=== PATIENT | male | born 1960 | race Caucasian/White ===

== ENCOUNTER 2022-10-08 13:27 | Outpatient (OUT) | payer BC, SELFPAY ==
[2022-10-08 14:53] LABS: Prostate Specific Antigen Dx 0.15 ng/mL (<=4.00)
== END 2022-10-08 13:28 | disposition home or self-care (01) ==
LOC: LAB 13:33
PROVIDERS: PCP Family Medicine
DX: C61 Malignant neoplasm of prostate (principal)
CPT/HCPCS: 36415; 84153

== ENCOUNTER 2022-11-29 09:32 | Outpatient (OUT) | payer BC, SELFPAY ==
--- NOTE | 2022-11-29 09:40 | XR_ITS ---
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 Atherosclerotic calcifications. Left foot is otherwise unremarkable. Electronically authenticated by: GUDELIA GASPAR Date: 11/29/2022 18:05
== END 2022-11-29 09:33 | disposition home or self-care (01) ==
LOC: RAD 09:33
PROVIDERS: PCP Family Medicine; Visit Provider Physician Assistant
DX: M79.672 Pain in left foot (principal)
CPT/HCPCS: 73620

== ENCOUNTER 2023-01-29 09:23 | Outpatient (OUT) | payer BC, SELFPAY ==
[2023-01-29 09:57] LABS: Basophils Percent Auto 0.1 % (0.2-2.0); Eosinophils Absolute Auto 0.2 10^3/uL (0.0-0.7); Eosinophils Percent Auto 3.2 % (0.9-7.0); Hematocrit 40.8 % (42.0-54.0); Hemoglobin 13.9 g/dL (14.0-18.0); Immature Granulocytes Abs Auto 0.01 10^3/uL (0.00-0.03); Immature Granulocytes Pct Auto 0.1 % (0.0-0.5); Lymphocytes Absolute Auto 0.9 10^3/uL (1.2-3.8); Lymphocytes Percent Auto 12.4 % (20.5-60.0); Mean Corpuscular HGB Conc 34.1 g/dL (29.9-35.2); Mean Corpuscular Hemoglobin 33.2 pg (25.9-34.0); Mean Corpuscular Volume 97.4 fL (80.0-94.0); Mean Platelet Volume 10.2 fL (9.5-13.5); Monocytes Absolute Auto 0.5 10^3/uL (0.3-0.8); Monocytes Percent Auto 6.6 % (1.7-12.0); Neutrophils Absolute Auto 5.8 10^3/uL (1.4-6.5); Neutrophils Percent Auto 77.6 % (43.0-75.0); Platelet Count 194 10^3/uL (150-450); Red Blood Count 4.19 10^6/uL (4.70-6.10); White Blood Count 7.4 10^3/uL (4.0-11.0)
[2023-01-29 11:39] LABS: Estimated Average Glucose 111 mg/dL; Glycohemoglobin A1C 5.5 % (4.5-6.2)
[2023-01-29 12:54] LABS: Alanine Aminotransferase 35 U/L (16-63); Albumin Level 3.8 g/dL (3.4-5.0); Alkaline Phosphatase 55 U/L (46-116); Anion Gap 10.9; Aspartate Amino Transferase 18 U/L (15-37); BUN Creatinine Ratio 16.5; Bilirubin Total 0.7 mg/dL (0.2-1.0); Calcium 9.1 mg/dL (8.5-10.1); Carbon Dioxide 28.3 mmol/L (21.0-32.0); Chloride 99 mmol/L (98-107); Chol HDL Ratio 2.8; Cholesterol 224 mg/dL (<=200); Estimated GFR (African America >60 (>=60); Estimated GFR (Non-African Ame >60 (>=60); Free T3 2.71 pg/mL (2.18-3.98); Globulin 3.7 g/dL; Glucose 111 mg/dL (74-106); HDL Cholesterol 79 mg/dL (40-60); Potassium 4.2 mmol/L (3.5-5.1); Sodium 134 mmol/L (136-145); Thyroid Stimulating Hormone 1.481 uIU/mL (0.358-3.740); Total Protein 7.5 g/dL (6.4-8.2); Triglycerides 56 mg/dL (<=150); VLDL CHOLESTEROL 11.2 mg/dL
== END 2023-01-29 09:24 | disposition home or self-care (01) ==
LOC: LAB 09:24
PROVIDERS: PCP Family Medicine; Visit Provider Family Medicine
DX: Z00.00 Encounter for general adult medical examination without abnormal findings (principal); C61 Malignant neoplasm of prostate; E78.5 Hyperlipidemia, unspecified; R73.09 Other abnormal glucose
CPT/HCPCS: 36415; 80053; 80061; 83036; 84153; 84436; 84443; 84481; 85025

== ENCOUNTER 2023-01-29 09:25 | Outpatient (OUT) | payer BC, SELFPAY ==
[2023-01-29 11:12] LABS: Prostate Specific Antigen Dx 0.13 ng/mL (<=4.00)
== END 2023-01-29 09:26 | disposition home or self-care (01) ==
LOC: LAB 09:26
PROVIDERS: PCP Family Medicine; Visit Provider Radiology Radiation Oncology
DX: C61 Malignant neoplasm of prostate (principal)
CPT/HCPCS: 36415; 84153

== ENCOUNTER 2023-08-08 09:44 | Outpatient (OUT) | payer BC, SELFPAY ==
--- OUTSIDE RECORDS SUMMARY | 2023-08-08 09:52 | XMS_ITS | CCD ---
Author Organization [facility] Care Team Providers Care Quality Consultant Name Role Phone BARBARA PORTER Primary Care Physician [phone] Barbara Porter MD Primary Care Provider Rohan Parmar Jr. Unavailable Barbara Porter MD Primary Care Provider Rohan Parmar Jr. Unavailable Barbara Porter MD Primary Care Provider [phone] Rohan Parmar Jr. Unavailable DR ROHAN PARMAR JR Admitting Jin PARMAR JR, DR ROHAN Rivera Attending Unavailtoñito PARMAR JR, DR ROHAN Rivera Consulting Unavailtoñito PORTER, DR BARBARA Sheets Primary Care Unavailable GHULAM GILL, DR ROHAN Rivera Consulting Unavailtoñito PARMAR JR, DR ROHAN Rivera Admitting Unavailtoñito PARMAR JR, DR ROHAN Rivera Attending Unavailtoñito PORTER, DR BARBARA Sheets Primary Care Unavailable GHULAM GILL, DR ROHAN Rivera Admitting Unavailtoñito PARMAR JR, DR ROHAN Rivera Attending Unavailtoñito PORTER, DR BARBARA Sheets Primary Care Unavailable [place], DR CATERINA Seals Consulting Unavailable AGUEDA, DR MACKENZIE Francis Consulting Unavailable GHULAM GILL, DR ROHAN Rivera Consulting Unavailtoñito sheets AGUBOSISANTINO Gomez Consulting Unavailable PERLITA HOPSON Consulting Unavailable ANGELICA ARGUETA Consulting Unavailable AGUEDA, DR MACKENZIE Francis Admitting Unavailable AGUEDA, DR MACKENZIE Francis Attending Unavailable GERMAN, DR BARBARA Sheets Primary Care Unavailable AGUEDA, DR MACKENZIE Francis Consulting Unavailable AGUEDA, DR MACKENZIE Francis Admitting Unavailable AGUEDA, DR MACKENZIE Francis Attending Unavailable GERMAN, DR BARBARA Sheets Consulting Unavailable GERMAN, DR BARBARA Sheets Primary Care Unavailable AGUEDA, DR MACKENZIE Francis Consulting Unavailable GERMAN, DR BARBARA Sheets Primary Care Unavailable SREEKANTH, DR LING Admitting Unavailable SREEKANTH, DR LING Attending Unavailable GUTIERREZ MILLS Consulting Unavailable CATERINA CHAVEZ Consulting Unavailable GERMAN, DR BARBARA Sheets Attending Unavailable GERMAN, DR BARBARA Sheets Consulting Unavailable GERMAN, DR BARBARA Sheets Primary Care Unavailable GERMAN, DR BARBARA Sheets Admitting Unavailable GERMAN, DR BARBARA Sheets Primary Care Unavailable GERMAN, DR BARBARA Sheets Attending Unavailable GERMAN, DR BARBARA Sheets Consulting Unavailable GERMAN, DR BARBARA Sheets Admitting Unavailable Steven Ayers Primary Care Physician Tomasz ESCOBAR Attending Unavailable Tomasz ESCOBAR Attending Unavailable Tomasz ESCOBAR Attending Unavailable Barbara Porter MD Primary Care Provider Marie ROMEO Referring Unavailable Marie ROMEO Attending Unavailable BARBARA PORTER Primary Care Unavailable Marie ROMEO Referring Unavailable Marie ROMEO Attending Unavailable BARBARA PORTER Primary Care Unavailable Marie ROMEO Referring Unavailable PRADIP ULRICH Attending Unavailable BARBARA PORTER Primary Care Unavailable Marie ROMEO Attending Unavailable BARBARA PORTER Primary Care Unavailable Marie ROMEO Referring Unavailable Allergies Allergy Classification Reported Allergen(s) Allergy Type Date of Onset Reaction(s) Facility (8 sources) Penicillin; Translations: [penicillin] Drug Allergy father gets really sick, in the [facility] Medications Current Medications Medication Drug Class(es) Dates Sig (Normalized) Sig (Original) 24 hr alfuzosin hydrochloride 10 mg extended release oral tablet (5 sources) alpha-Adrenergic Susana Start: 03-06-2022 take 1 tablet by mouth every other day alfuzosin 10 mg ER Tab 10 mg = 1 tab(s), Oral, Every other day, # 15 tab(s), Refills(s) 0, Pharmacy: [facility]/pharmacy #[id number], 182, cm, 04/14/23 12:26:00 EST, Height/Length Dosing, 108, kg, 04/14/23 12:26:00 EST, Weight Dosing Start Date: 04/14/23 Status: Ordered Start: 03-06-2022 take 1 tablet by sina th once daily, then take 1 tablet by mouth every twenty-four hours alfuzosin SR (UROXATRAL) 10 mg 24 hr tablet Take 10 mg by mouth once daily. 0 03/06/2022 Active Start: 02-11-2022 take 1 tablet by mouth once da alecia alfuzosin 10 mg ER Tab 10 mg = 1 tab(s), Oral, Daily, # 30 tab(s), Refills(s) 6, Pharmacy: [facility]/pharmacy #[id number], 182, cm, 02/11/22 13:09:00 EST, Height/Length Dosing, 112.6, kg, 02/11/22 13:09:00 EST, Weight Dosing Start Date: 02/11/22 Status: Ordered Comment on above: Take 10 mg by mouth once daily. Take 10 mg by mouth every other day. ciprofloxacin 500 mg oral tablet (6 sources) Quinolone Antimicrobial Start: 06-05-19 End: 06-11-19 take 1 tablet by mouth every twelve hours ciprofloxacin 500 mg Tab 500 mg = 1 tab(s), Oral, q12hr, Refills(s) 0, Infection or prophylaxis for antibiotics Start Date: 06/04/21 Status: Ordered phenazopyridine hydrochloride 100 mg oral tablet (1 source) Start: 09-26-19 Pyridium 100 mg Tab 100 mg = 1 tab(s), Oral, BID, take daily rather than twice a day, # 60 tab(s), Refills(s) 1, [id number], cm, 09/25/21 9:56:00 EDT, Height/Length Dosing, 112.6, kg, 09/25/21 9:56:00 EDT, Weight Dosing Start Date: 09/25/21 Status: Ordered shake vitamins (5 sources) Start: 06-05-19 shake vitamins shake vitamins, Oral, Daily, fiber store with vitamins liquid Start Date: 06/04/21 Status: Ordered Vitamin D3 2000 intl units (6 sources) Start: 06-05-19 take 1 tablet by mouth once daily Vitamin D3 2000 intl units 1 tab, Oral, Daily, Prophylaxis Start Date: 06/04/21 Status: Ordered Completed/Discontinued Medications Medication Drug Class(es) Dates Sig (Normalized) Sig (Original) bisoprolol fumarate 2.5 mg / hydroCHLOROthiazide 6.25 mg oral tablet (16 sources) Thiazide Diuretic, beta-Adrenergic Susana Start: 12-26-2022 bisoprolol-hydro chlorothiazide 2.5 mg-6.25 mg Tab See Instructions, 90 tab(s), Refill(s) 1, TAKE 1 TABLET BY MOUTH EVERY DAY, [id number], 182, cm, 08/12/22 10:27:00 EDT, Height/Length Dosing, 112, kg, 08/12/22 10:27:00 EDT, Weight Dosing Start Date: 12/26/22 Status: Ordered Start: 07-10-2021 bisoprolol-hyd rochlorothiazide 2.5 mg-6.25 mg Tab Refill(s) 0 Start Date: 07/10/21 Status: Ordered Start: 07-04-2021 take 1 tablet by sina th once daily bisoprolol-hydroCHLOROthiazide (ZIAC) 2.5-6.25 mg per tablet Take 1 tablet by mouth once daily. 0 07/04/2021 Active Comment on above: Take 1 tablet by sina th once daily. ketorolac tromethamine 10 mg oral tablet (4 sources) Nonsteroidal Anti-inflammatory Drug, Cyclooxygenase Inhibitor Start: 08-29-19 End: 04-19-19 take 1 tablet by mouth every six hours as needed keTORolac (TORADOL) 10 mg tablet Take 10 mg by mouth every 6 hours as needed. 0 08/28/2021 04/19/2022 Discontinued (Discontinued by Patient) Comment on above: Take 10 mg by mouth every 6 hours as needed. tadalafil 20 mg oral tablet (5 sources) Phosphodiesterase 5 Inhibitor Start: 02-12-20 take 1 tablet by mouth once daily Tadalafil (CIALIS) 20 mg tab(s) Take 20 mg by mouth once daily. 0 04/01/2022 Active Comment on above: Take 20 mg by mouth once daily. Problems Active Problems Problem Classification Problem Date Documented Date Episodic/Chronic Cancer of prostate (20 sources) Malignant neoplasm of prostate; Translations: [Malignant tumor of prostate] Onset: 06-26-2021 Chronic Disorders of lipid metabolism (6 sources) Hyperlipidemia 06-04-2021 Chronic Essential hypertension (7 sources) Hypertensive disorder; Translations: [Essential (primary) hypertension] Onset: 09-06-2021 04-24-2021 Chronic Genitourinary symptoms and ill-defined conditions (4 sources) Nocturia; Translations: [Nocturia] Onset: 09-06-2021 Episodic Hyperplasia of prostate (11 sources) Benign prostatic hypertrophy with outflow obstruction; Translations: [Benign prostatic hyperplasia with lower urinary tract symptoms] Onset: 06-26-2021 04-24-2021 Chronic Other diseases of kidney and ureters (3 sources) Urinary tract obstruction; Translations: [Other obstructive and reflux uropathy] Onset: 06-07-2021 Episodic Other male genital disorders (2 sources) Male erectile dysfunction, unspecified; Translations: [Erectile dysfunction] Onset: 02-11-2022 Chronic Other male genital disorders (1 source) Erectile dysfunction following radiation therapy; Translations: [Erectile dysfunction due to and following radiation therapy] Onset: 04-14-2023 Chronic Other male genital disorders (1 source) Erectile dysfunction following prostate brachytherapy 08-12-2022 Chronic Residual codes; unclassified (4 sources) Obstructive sleep apnea (adult) (pediatric); Translations: [OBSTRUCTIVE SLEEP APNEA] Onset: 02-12-2022 Chronic Unclassified (1 source) CONTACT W/AND (SUSP) EXPOS COVID-19; Translations: [CONTACT W/AND (SUSP) EXPOS COVID-19] Onset: 08-28-2021 Past or Other Problems Problem Classification Problem Date Documented Da te Episodic/Chronic E Codes: Cut/pierceb (1 source) Nail entering through skin, initial encounter; Translations: [NAIL ENTERING THROUGH SKIN INITIAL] Onset: 12-19-2021 Episodic Immunizations and screening for infectious disease (1 source) Encounter for immunization; Translations: [ENCOUNTER FOR IMMUNIZATION] Onset: 12-19-2021 Episodic Open wounds of extremities (4 sources) Laceration without foreign body of right thumb without damage to nail, initial encounter; Translations: [LAC NO FB RT THUMB NO DMG NAIL INIT] Onset: 12-17-2021 Episodic Other screening for suspected conditions (not mental disorders or infectious disease) (6 sources) Raised prostate specific antigen; Translations: [Elevated prostate specific antigen [PSA]] Onset: 09-06-2021 04-24-2021 Episodic Results Test Name Value Interpretation Reference Range Facil shanicekelly MCKAYLAon 04-16-2023 CNOV Office Visit (RADTSA ) BRAXTON STODDARD ([id number]) 1960 M Date Time Provider Department 04/16/23 10:15 AM Marie ROMEO During your visit today, we recorded the following information about you: Temperature Pulse Respiration Blood pressure 97.5 degrees 52/minute 18/minute 132/86 Weight 111.7 kg Marie Romeo MD 04/16/2023 10:28 AM Signed Radiation Oncology - Follow Up Note PATIENT NAME: Braxton Stoddard PATIENT DIAGNOSIS: Prostate adenocarcinoma, initial PSA 4.6, biopsy Brady score 3 + 3 = 6 (grade group 1), clinical stage T1c, N0, M0, stage I [cT1a-c/T2a, N0, M0, PSA <10, GG 1] (AJCC 8th ed.), s/p TRUS Random biopsy. RADIATION SUMMARY:, Prostate brachytherapy 08/20/2021 145 Gy using I-125 sources. 76 sources, 29.64 mCi 19 needles INTERVAL HISTORY: Doing well. Bladder function continues to improve. 10/09/21:Urinary function improving still with frequency and urgency. Denies hematuria. No fever. No perirectal or perineal pain. PSA HISTORY: PSA. (no units) Date Value 01/29/2023 0.13 10/08/2022 0.15 04/16/2022 0.26 10/05/2021: 3.8 ALLERGIES No Known Allergies alfuzosin SR (UROXATRAL) 10 mg 24 hr tablet Take 10 mg by mouth every other day. bisoprolol-hydroCHLORO thiazide (ZIAC) 2.5-6.25 mg per tablet Take 1 tablet by mouth once daily. Tadalafil (CIALIS) 20 mg tab(s) Take 20 mg by mouth once daily. REVIEW OF SYSTEMS: D/N = 4/1-2 Hematuria: none Dysuria: none Incontinence: none Urgency: min Catheter use: none Medications to aid urination: no - Total AUA Score: 7 Bowel movement frequency: 1/day Bowel movement quality: normal Blood per rectum: none PHYSICAL EXAM: BP 132/86 Pulse (!) 52 Temp 36.4 ?C (97.5 ?F) Resp 18 Wt 111.7 kg (246 lb 4.1 oz) SpO2 99% BMI (P) 34.35 kg/m? KPS: 100 General Appearance: Alert and oriented. No acute distress. No neck supraclavicular or axillary lymphadenopathy Rectal exam is deferred. ASSESSMENT/PLAN: Prostate adenocarcinoma, initial PSA 4.6, biopsy [place] score 3 + 3 = 6 (grade group 1), clinical stage T1c, N0, M0, stage I [cT1a-c/T2a, N0, M0, PSA <10, GG 1] (AJCC 8th ed.), s/p TRUS Random biopsy. Patient overall doing well. PSA continues to decline. No significant posttreatment related problems. Patient has continued close follow-up with urology including surveillance of PSA. I will see patient back in 6 months and if he continues to do well on an as-needed basis. Signed by: Marie Romeo MD cc: Barbara Porter [address] [place], [place] [id number] Janelle Ch LPN 04/16/2023 10:28 AM Signed AUA= 7 Referring Provider: Marie ROMEO [[id number]] Allergies As of Date: 04/16/2023 (No Known Allergies) Date Reviewed: 04/16/2023 Reviewed by: Janelle Ch LPN - Fully Assessed Reason for Visit: Prostate Cancer [590] Primary Visit Diagnosis:Malignant neoplasm of prostate (HCC) [C61] Order(s):PSA (OUTSIDE) [4723215] Order #: [id number] PSA/PROSTSPECAG DIAG [SQPSA] Order #: [id number] FUTURE Prescriptions as of 04/16/2023 - alfuzosin SR (UROXATRAL) 10 mg 24 hr tablet Take 10 mg by mouth every other day. - Tadalafil (CIALIS) 20 mg tab(s) Take 20 mg by mouth once daily. - bisoprolol-hydroCHLORO thiazide (ZIAC) 2.5-6.25 mg per tablet Take 1 tablet by mouth once daily. Problem List As Of Date 04/16/2023 Noted Resolved Prostate cancer (HCC) [C61] 04/19/2022 Visit Notes: >> Janelle Ch LPN Wed Apr 16, 2023 10:14 AM Status: Signed AUA= 7 Encounter Status:Closed by Marie ROMEO on 04/16/23 Normal [facility] Ambulatory Visit Summaryon 0 04-14-2023 Ambulatory Visit Summary BRAXTON STODDARD :1960 Visit Date:04/14/2023 Ambulatory Visit Instructions Your Diagnosis Prostate cancer BPH with urinary obstruction Erectile dysfunction after prostate brachytherapy Your Care Team Attending Physician - SONNY CODY, Tomasz Quigley Primary Care Physician - Steven Ayers MD This Is Your Medications List alfuzosin (alfuzosin 10 mg ER Tab) Contact prescribing physician if questions or concerns bisoprolol-hydrochloro thiazide (bisoprolol-hydrochlor othiazide 2.5 mg-6.25 mg Tab) cholecalciferol (Vitamin D3 2000 intl units) tadalafil (Cialis 20 mg Tab) Procedures Performed Brachytherapy (08/28/2021), Biopsy of prostate (06/07/2021), Dilation of esophagus (2015), Appendectomy, Colonoscopy. Discharge Vitals Height 182 cm Height 72 in Weight 108 kg Weight 237.6 lb BMI 32.6 What to do next You Need to Schedule the Following Appointments Follow Up with SONNY CODY, Tomasz Quigley, YUE When: Comments: 1 yr w/ PSA Where: [facility] [address] , [place] [address] [phone] Medications What How Much When Instructions Unchanged alfuzosin (alfuzosin 10 mg ER Tab) 1 Tablets By Mouth Every day Unchanged bisoprolol-hydrochloro thiazide (bisoprolol-hydrochlor othiazide 2.5 mg-6.25 mg Tab) See instructions TAKE 1 TABLET BY MOUTH EVERY DAY Contact prescribing physician if questions or concerns Unchanged cholecalciferol (Vitamin D3 2000 intl units) 1 tab By Mouth Every day Contact prescribing physician if questions or concerns Unchanged tadalafil (Cialis 20 mg Tab) 1 Tablets By Mouth Every day Contact prescribing physician if questions or concerns Allergies penicillin (father gets really sick, in the family) Problems Ongoing - Any problem that you are currently receiving treatment for. BPH with urinary obstruction Erectile dysfunction after prostate brachytherapy Hypertension Nocturia Prostate cancer Historical - Any problem that you are no longer receiving treatment for. Hyperlipidemia Patient Survey You may receive a survey via text or e-mail asking about your office visit. Please share your experience with us by completing your survey. We appreciate your feedback and thank you for choosing us for your care. Education Materials Prostate Cancer Screening Prostate cancer screening is testing that is done to check for the presence of prostate cancer in men. The prostate gland is a walnut-sized gland that is located below the bladder and in front of the rectum in males. The function of the prostate is to add fluid to semen during ejaculation. Prostate cancer is one of the most common types of cancer in men. Who should have prostate cancer screening? Screening recommendations vary based on age and other risk factors, as well as between the professional organizations who make the recommendations. In general, screening is recommended if: ? You are age 50 to 70 and have an average risk for prostate cancer. You should talk with your health care provider about your need for screening and how often screening should be done. Because most prostate cancers are slow growing and will not cause , screening in this age group is generally reserved for men who have a 10- to 15-year life expectancy. ? You are younger than age 50, and you have these risk factors: ? Having a father, brother, or uncle who has been diagnosed with prostate cancer. The risk is higher if your family member's cancer occurred at an early age or if you have multiple family members with prostate cancer at an early age. ? Being a male who is Black or is of [place] or sub-Saharan descent. In general, screening is not recommended if: ? You are younger than age 40. ? You are between the ages of 40 and 49 and you have no risk factors. ? You are 70 years of age or older. At this age, the risks that screening can cause are greater than the benefits that it may provide. If you are at high risk for prostate cancer, your health care provider may recommend that you have screenings more often or that you start screening at a younger age. How is screening for prostate cancer done? The recommended prostate cancer screening test is a blood test called the prostate-specific antigen (PSA) test. PSA is a protein that is made in the prostate. As you age, your prostate naturally produces more PSA. Abnormally high PSA levels may be caused by: ? Prostate cancer. ? An enlarged prostate that is not caused by cancer (benign prostatic hyperplasia, or BPH). This condition is very common in older men. ? A prostate gland infection (prostatitis) or urinary tract infection. ? Certain medicines such as male hormones (like testosterone) or other medicines that raise testosterone levels. A rectal exam may be done as part of prostate cancer screening to help provide information about the size of your prostate gland. When a rectal exam is perf (more content not included)... Normal [facility] Patient Educationon 04-14-19 24 Patient Education Oncology Prostate Cancer Screening Prostate cancer screening is testing that is done to check for the presence of prostate cancer in men. The prostate gland is a walnut-sized gland that is located below the bladder and in front of the rectum in males. The function of the prostate is to add fluid to semen during ejaculation. Prostate cancer is one of the most common types of cancer in men. Who should have prostate cancer screening? Screening recommendations vary based on age and other risk factors, as well as between the professional organizations who make the recommendations. In general, screening is recommended if: ? You are age 50 to 70 and have an average risk for prostate cancer. You should talk with your health care provider about your need for screening and how often screening should be done. Because most prostate cancers are slow growing and will not cause , screening in this age group is generally reserved for men who have a 10- to 15-year life expectancy. ? You are younger than age 50, and you have these risk factors: ? Having a father, brother, or uncle who has been diagnosed with prostate cancer. The risk is higher if your family member's cancer occurred at an early age or if you have multiple family members with prostate cancer at an early age. ? Being a male who is Black or is of [place] or sub-Saharan descent. In general, screening is not recommended if: ? You are younger than age 40. ? You are between the ages of 40 and 49 and you have no risk factors. ? You are 70 years of age or older. At this age, the risks that screening can cause are greater than the benefits that it may provide. If you are at high risk for prostate cancer, your health care provider may recommend that you have screenings more often or that you start screening at a younger age. How is screening for prostate cancer done? The recommended prostate cancer screening test is a blood test called the prostate-specific antigen (PSA) test. PSA is a protein that is made in the prostate. As you age, your prostate naturally produces more PSA. Abnormally high PSA levels may be caused by: ? Prostate cancer. ? An enlarged prostate that is not caused by cancer (benign prostatic hyperplasia, or BPH). This condition is very common in older men. ? A prostate gland infection (prostatitis) or urinary tract infection. ? Certain medicines such as male hormones (like testosterone) or other medicines that raise testosterone levels. A rectal exam may be done as part of prostate cancer screening to help provide information about the size of your prostate gland. When a rectal exam is performed, it should be done after the PSA level is drawn to avoid any effect on the results. Depending on the PSA results, you may need more tests, such as: ? A physical exam to check the size of your prostate gland, if not done as part of screening. ? Blood and imaging tests. ? A procedure to remove tissue samples from your prostate gland for testing (biopsy). This is the only way to know for certain if you have prostate cancer. What are the benefits of prostate cancer screening? ? Screening can help to identify cancer at an early stage, before symptoms start and when the cancer can be treated more easily. ? There is a small chance that screening may lower your risk of dying from prostate cancer. The chance is small because prostate cancer is a slow-growing cancer, and most men with prostate cancer from a different cause. What are the risks of prostate cancer screening? The main risk of prostate cancer screening is diagnosing and treating prostate cancer that would never have caused any symptoms or problems. This is called overdiagnosisand overtreatment. PSA screening cannot tell you if your PSA is high due to cancer or a different cause. A prostate biopsy is the only procedure to diagnose prostate cancer. Even the results of a biopsy may not tell you if your cancer needs to be treated. Slow-growing prostate cancer may not need any treatment other than monitoring, so diagnosing and treating it may cause unnecessary stress or other side effects. Questions to ask your health care provider ? When should I start prostate cancer screening? ? What is my risk for prostate cancer? ? How often do I need screening? ? What type of screening tests do I need? ? How do I get my test results? ? What do my results mean? ? Do I need treatment? Where to find more information ? [employer] [place] [employer]: www.cancer.org ? [employer]: www.auanet.org Contact a health care provider if: ? You have difficulty urinating. ? You have pain when you urinate or ejaculate. ? You have blood in your urine or semen. ? You have pain in your back or in the area of your prostate. Summary ? Prostate cancer is a common type of cancer in men. The prostate gland is located below the bladder and in front of the rectum. This gland adds flu (more content not included)... Normal [facility] Urology Office/Clinic Noteon 04-14-2023 Urology Office/Clinic Note Chief Complaint 6m PSA HPI Staff 6m PSA DX: Prostate Cancer, BPH & ED following brachytherapy S/p Brachytherapy 08/28/21. *Alfuzosin ER 10mg qd therapy PSA 01/29/23 0.13 Symptoms have gone back to normal since Brachytherapy. Now having steady stream. Getting up 1-2x/night to void. Did discuss MARIE & ICI with , does not think he wants to take those routes. Next appt w/Dr Romeo is this coming Friday. Insurance denied colonoscopy due to 1 q10yrs. Pt is wondering if DX of prostate cancer would add a qualifying DX to getting procedure covered. History of Present Illness Tests reviewed: reviewed UA, PSA I have reviewed the previous health record information and history for this patient from Dr. Escobar. I have reviewed and verified the staff HPI to be accurate for this encounter. Review of Systems PHQ Score Initial Depression Screen Score: 0 SCORE ROS - Provider Constitutional: denies weight loss, denies hot flashes. Eyes: denies eye problems. Gastrointestinal: denies nausea, denies vomiting. Cardiovascular: denies chest pain or angina. Integumentary: no dryness Musculoskeletal: denies musculoskeletal symptoms. ENMT: denies otolaryngeal symptoms. Respiratory: no shortness of breath. Heme/Lymph: denies easy bleeding tendency, denies easy bruising tendency. Psychiatric: no confusion, no anxiety. Genitourinary: See HPI. Physical Exam Vitals & Measurements HT: 72 in HT: 182 cm WT: 108 kg WT: 237.6 lb BMI: 32.6 General Appearance: alert, no distress, well nourished, well developed male. Genitourinary: normal scrotum, normal testes, normal urethra, normal epididymis, normal vas deferens/spermatic cord. Flank Pain: none. Bladder: nonpalpable. Assessment/Plan 1. Prostate cancer (C61: Malignant neoplasm of prostate) PSA: 03/09/21 - 4.6 10/05/21 - 3.8 04/16/22 - 0.26 01/29/23 - 0.13 TRUS/bx 06/07/21 - Glendale score 6 (3+3) in one core. S/p Brachytherapy 08/28/21. Has appt w/ Dr. Romeo this Friday. Discussed PSA level w/ pt, decreased from prior. Will continue to monitor. -PSA in 1 yr 2. BPH with urinary obstruction (N40.1: Benign prostatic hyperplasia with lower urinary tract symptoms) UA today negative for blood and infection. Taking Alfuzosin ER 10mg qd. Feels he is now voiding well. Pt inquired about stopping Alfuzosin due to starting this med after radiation. Advised pt to wean off this med. If he does not have any changes in urinary sxs after stopping, pt can d/c med. -he will take Alfuzosin qod for one month. if no change, then stop the med. If urinary sxs become bothersome, pt to call and restart medication. 3. Erectile dysfunction after prostate brachytherapy (N52.35: Erectile dysfunction following radiation therapy) Tried Cialis 20mg prn after brachy, could achieve 50% of erection. Discussed alternative options, such as MARIE and ICI, but pt wished to think about options. Follow-up With When Contact Information SONNY CODY, Tomasz Quigley, URL [facility] [address], [place] [address]- [phone] Additional Instructions: 1 yr w/ PSA Patient Education Prostate Cancer Screening I, Rosalina Mosher, personally scribed for Dr. Escobar on 04/14/2023 13:21:51. . Documentation recorded by the scribe, Rosalina Mosher, accurately reflects the services(s) I performed and decisions made by me. Authenticated by Dr. Escoabr on 04/14/2023 13:27:00. Problem List/Past Medical History Ongoing BPH with urinary obstruction Erectile dysfunction after prostate brachytherapy Hypertension Nocturia Prostate cancer Historical Hyperlipidemia Procedure/Surgical History Brachytherapy (08/28/2021), Biopsy of prostate (06/07/2021), Dilation of esophagus (2015), Appendectomy, Colonoscopy. Medications alfuzosin 10 mg ER Tab, 10 mg= 1 tab(s), Oral, Daily, 6 refills bisoprolol-hydrochloro thiazide 2.5 mg-6.25 mg Tab, See Instructions Cialis 20 mg Tab, 20 mg= 1 tab(s), Oral, Daily, 6 refills Vitamin D3 2000 intl units, 1 tab, Oral, Daily Allergies penicillin (father gets really sick, in the family) Social History Alcohol Current, Beer, 1-2 times per week, 06/04/2021 Substance Abuse - Denies Substance Abuse, 06/04/2021 Tobacco - Denies Tobacco Use, 04/24/2021 Never (less than 100 in lifetime) Tobacco Use:. Never Smokeless Tobacco Use:. Household tobacco concerns: No. Yes, 04/14/2023 Family History Hypertension: Father. Lab Results Ambulatory Point of Care Results Bilirubin Urine Dipstick: Negative (04/14/23 12:23:00) Blood Urine Dipstick: Negative (04/14/23 12:23:00) Glucose Urine Dipstick: Negative (04/14/23 12:23:00) Ketones Urine Dipstick: Negative (04/14/23 12:23:00) Leukocytes Urine Dipstick: Negative (04/14/23 12:23:00) Nitrite Urine Dipstick: Negative (04/14/23 12:23:00) Protein Urine Dipstick: Negative (04/14/23 12:23:00) Specific [place] Urine Dipstick: 1.010 (04/14/23 12:23:00 (more content not included)... Normal [facility] Comment on above: Result Comment: Elec tronically Signed By: Tomasz ESCOBAR MD\.br\Date and Time Signed: 04/14/23 13:27 EST\.br\Electronically Co-Signed By: Rosalina Mosher\.br\Date and Time Co-Signed: 04/14/23 13:22 EST Lab Reportson 01-29-2023 Lab Reports [id number] 0TIFF Natalya Macias [facility] CNBenito 10-15-2022 CNOV Office Visit (RADTSA ) BRAXTON STODDARD ([id number]) 1960 M Date Time Provider Department 10/15/22 2:15 PM Marie ROMEO During your visit today, we recorded the following information about you: Temperature Pulse Respiration Blood pressure 96.7 degrees 52/minute 18/minute 151/94 Weight 114.3 kg Alicia Reveles RN 10/15/2022 2:27 PM Signed AUA 10 LORI Craven G Phillip, MD 10/15/2022 2:27 PM Signed Radiation Oncology - Follow Up Note PATIENT NAME: Braxton Stoddard PATIENT DIAGNOSIS: Prostate adenocarcinoma, initial PSA 4.6, biopsy Brady score 3 + 3 = 6 (grade group 1), clinical stage T1c, N0, M0, stage I [cT1a-c/T2a, N0, M0, PSA <10, GG 1] (AJCC 8th ed.), s/p TRUS Random biopsy. RADIATION SUMMARY:, Prostate brachytherapy 08/20/2021 145 Gy using I-125 sources. 76 sources, 29.64 mCi 19 needles INTERVAL HISTORY: Overall feeling much better over the last 3 to 4 months. Bladder function good. No dysuria hematuria. No other new problems. 10/09/21:Urinary function improving still with frequency and urgency. Denies hematuria. No fever. No perirectal or perineal pain. PSA HISTORY: PSA. (no units) Date Value 10/08/2022 0.15 04/16/2022 0.26 10/05/2021: 3.8 ALLERGIES No Known Allergies alfuzosin SR (UROXATRAL) 10 mg 24 hr tablet Take 10 mg by mouth once daily. Tadalafil (CIALIS) 20 mg tab(s) Take 20 mg by mouth once daily. bisoprolol-hydroCHLORO thiazide (ZIAC) 2.5-6.25 mg per tablet Take 1 tablet by mouth once daily. REVIEW OF SYSTEMS: D/N = 4/2-4 Hematuria: none Dysuria: none Incontinence: none Urgency: moderate Catheter use: none Medications to aid urination: no - Total AUA Score: 10 Bowel movement frequency: 1/day Bowel movement quality: normal Blood per rectum: none PHYSICAL EXAM: BP 151/94 Pulse (!) 52 Temp (!) 35.9 ?C (96.7 ?F) Resp 18 Wt 114.3 kg (252 lb) SpO2 100% BMI (P) 35.15 kg/m? KPS: 100 General Appearance: Alert and oriented. No acute distress. No neck supraclavicular or axillary lymphadenopathy Rectal exam is deferred. ASSESSMENT/PLAN: Prostate adenocarcinoma, initial PSA 4.6, biopsy Glendale score 3 + 3 = 6 (grade group 1), clinical stage T1c, N0, M0, stage I [cT1a-c/T2a, N0, M0, PSA <10, GG 1] (AJCC 8th ed.), s/p TRUS Random biopsy. Patient overall doing well. PSA continues to decline. No significant posttreatment related problems. Recommend continued close observation with serial PSA. Signed by: Marie Romeo MD cc: Barbara Porter [address] [place] [address] Referring Provider: Marie ROMEO [[id number]] Allergies As of Date: 10/15/2022 (No Known Allergies) Date Reviewed: 10/15/2022 Reviewed by: Alicia Reveles RN - Fully Assessed Reason for Visit: Prostate Cancer [590] Primary Visit Diagnosis:Malignant neoplasm of prostate (HCC) [C61] Order(s):PSA (OUTSIDE) [8063929] Order #: [id number] PSA/PROSTSPECAG DIAG [SQPSA] Order #: [id number] FUTURE Prescriptions as of 10/15/2022 - alfuzosin SR (UROXATRAL) 10 mg 24 hr tablet Take 10 mg by mouth once daily. - Tadalafil (CIALIS) 20 mg tab(s) Take 20 mg by mouth once daily. - bisoprolol-hydroCHLORO thiazide (ZIAC) 2.5-6.25 mg per tablet Take 1 tablet by mouth once daily. Problem List As Of Date 10/15/2022 Noted Resolved Prostate cancer (HCC) [C61] 04/19/2022 Visit Notes: >> Alicia Reveles RN Tue Oct 15, 2022 2:11 PM Status: Signed AUA 10 Alicia Reveles RN Disposition: Return in about 1 year (around 10/16/2023). Follow-up and Disposition History for Encounter Date Provider Department Center 10/15/2022 [id number] ROMEO [facility] Encounter Status:Closed by Marie ROMEO on 10/15/22 Normal [facility] Lab Reportson 08-19-2022 Lab Reports [id number] 0CD:127 Normal [facility] Ambulatory Visit Summaryon 0 08-12-2022 Ambulatory Visit Summary BRAXTON STODDARD :1960 Visit Date:08/12/2022 Ambulatory Visit Instructions Your Diagnosis Prostate cancer BPH with urinary obstruction Erectile dysfunction after prostate brachytherapy Tests Performed Urnls Dip Stick Auto w/o Microscopy POC [id number] Your Care Team Attending Physician - SONNY CODY, Tomasz Quigley Primary Care Physician - GERMAN CODY, BARBARA Sheets This Is Your Medications List alfuzosin (alfuzosin 10 mg ER Tab) Contact prescribing physician if questions or concerns bisoprolol-hydrochloro thiazide (bisoprolol-hydrochlor othiazide 2.5 mg-6.25 mg Tab) cholecalciferol (Vitamin D3 2000 intl units) tadalafil (Cialis 20 mg Tab) Procedures Performed Brachytherapy (08/28/2021), Biopsy of prostate (06/07/2021), Dilation of esophagus (2015), Appendectomy, Colonoscopy. Discharge Vitals Heart Rate (Peripheral) 68 Respiratory Rate 16 Blood Pressure 130/74 Height 182 cm Height 72 in Weight 112 kg Weight 246.4 lb BMI 33.81 What to do next Scheduled Follow-Up Appointments Friday 9:15 AM EST With: SONNY CODY, Tomasz Quigley Where: [facility] Normal [facility] Patient Educationon 08-13-19 Patient Education Urology Erectile Dysfunction Erectile dysfunction (ED) is the inability to get or keep an erection in order to have sexual intercourse. ED is considered a symptom of an underlying disorder and is not considered a disease. ED may include: ? Inability to get an erection. ? Lack of enough hardness of the erection to allow penetration. ? Loss of erection before sex is finished. What are the causes? This condition may be caused by: ? Physical causes, such as: ? Artery problems. This may include heart disease, high blood pressure, atherosclerosis, and diabetes. ? Hormonal problems, such as low testosterone. ? Obesity. ? Nerve problems. This may include back or pelvic injuries, multiple sclerosis, Parkinson's disease, spinal cord injury, and stroke. ? Certain medicines, such as: ? Pain relievers. ? Antidepressants. ? Blood pressure medicines and water pills (diuretics). ? Cancer medicines. ? Antihistamines. ? Muscle relaxants. ? Lifestyle factors, such as: ? Use of drugs such as marijuana, cocaine, or opioids. ? Excessive use of alcohol. ? Smoking. ? Lack of physical activity or exercise. ? Psychological causes, such as: ? Anxiety or stress. ? Sadness or depression. ? Exhaustion. ? Fear about sexual performance. ? Guilt. What are the signs or symptoms? Symptoms of this condition include: ? Inability to get an erection. ? Lack of enough hardness of the erection to allow penetration. ? Loss of the erection before sex is finished. ? Sometimes having normal erections, but with frequent unsatisfactory episodes. ? Low sexual satisfaction in either partner due to erection problems. ? A curved penis occurring with erection. The curve may cause pain, or the penis may be too curved to allow for intercourse. ? Never having nighttime or morning erections. How is this diagnosed? This condition is often diagnosed by: ? Performing a physical exam to find other diseases or specific problems with the penis. ? Asking you detailed questions about the problem. ? Doing tests, such as: ? Blood tests to check for diabetes mellitus or high cholesterol, or to measure hormone levels. ? Other tests to check for underlying health conditions. ? An ultrasound exam to check for scarring. ? A test to check blood flow to the penis. ? Doing a sleep study at home to measure nighttime erections. How is this treated? This condition may be treated by: ? Medicines, such as: ? Medicine taken by mouth to help you achieve an erection (oral medicine). ? Hormone replacement therapy to replace low testosterone levels. ? Medicine that is injected into the penis. Your health care provider may instruct you how to give yourself these injections at home. ? Medicine that is delivered with a short applicator tube. The tube is inserted into the opening at the tip of the penis, which is the opening of the urethra. A tiny pellet of medicine is put in the urethra. The pellet dissolves and enhances erectile function. This is also called MUSE (medicated urethral system for erections) therapy. ? Vacuum pump. This is a pump with a ring on it. The pump and ring are placed on the penis and used to create pressure that helps the penis become erect. ? Penile implant surgery. In this procedure, you may receive: ? An inflatable implant. This consists of cylinders, a pump, and a reservoir. The cylinders can be inflated with a fluid that helps to create an erection, and they can be deflated after intercourse. ? A semi-rigid implant. This consists of two silicone rubber rods. The rods provide some rigidity. They are also flexible, so the penis can both curve downward in its normal position and become straight for sexual intercourse. ? Blood vessel surgery to improve blood flow to the penis. During this procedure, a blood vessel from a different part of the body is placed into the penis to allow blood to flow around (bypass) damaged or blocked blood vessels. ? Lifestyle changes, such as exercising more, losing weight, and quitting smoking. Follow these instructions at home: Medicines ? Take [id number] and prescription medicines only as told by your health care provider. Do not increase the dosage without first discussing it with your health care provider. ? If you are using self-injections, do injections as directed by your health care provider. Make sure you avoid any veins that are on the surface of the penis. After giving an injection, apply pressure to the injection site for 5 minutes. ? Talk to your health care provider about how to prevent headaches while taking ED medicines. These medicines may cause a sudden headache due to the increase in blood flow in your body. General instructions ? Exercise regularly, as directed by your health care provider. Work with your health care provider to lose weight, if needed. ? Do not use any products that contain nicotine or tobacco. These products include cig (more content not included)... Normal [facility] Urology Office/Clinic Noteon 08-12-2022 Urology Office/Clinic Note Chief Complaint 6m PSA HPI Staff 6 month f/u with PSA. Previous dx include prostate cancer (Brachytherapy done 08/28/21), BPH with urinary obstruction, nocturia and ED. *Pt started on Alfuzosin 10mg ER QD (does not take consistently) and Cialis 20mg PRN at last encounter. Current PSA done 04/16/22 is 0.26. Last seen @[facility] 04/19/22. Plan is to follow up q6m w/PSA for the first 2 yrs then annually. Occasional double voiding, usually when he has skipped the Alfuzosin dosing for a couple days, starts medication back up and symptoms improve. Denies pain/burning & blood. Voids q2hrs during the day, 2x/night to void. Occasional unsteady stream, not often. (attributes to being inconsistent w/Alfuzosin therapy) Cialis PRN (started at last encounter) -Not sure if it is helping. History of Present Illness Tests reviewed: reviewed UA, PSA, consult note. I have reviewed the previous health record information and history for this patient from Dr. Escobar. I have reviewed and verified the staff HPI to be accurate for this encounter. There have been no associated fever, chills, flank pain, or blood in the urine. Denies any urinary infections since last encounter. Review of Systems PHQ Score Initial Depression Screen Score: 0 ROS - Provider Constitutional: denies weight loss, denies hot flashes. Eyes: denies eye problems. Gastrointestinal: denies nausea, denies vomiting. Cardiovascular: denies chest pain or angina. Integumentary: no dryness Musculoskeletal: denies musculoskeletal symptoms. ENMT: denies otolaryngeal symptoms. Respiratory: no shortness of breath. Heme/Lymph: denies easy bleeding tendency, denies easy bruising tendency. Psychiatric: no confusion, no anxiety. Genitourinary: See HPI. Physical Exam Vitals & Measurements HR: 68(Peripheral) RR: 16 BP: 130/74 HT: 72 in HT: 182 cm WT: 112 kg WT: 246.4 lb BMI: 33.81 General Appearance: alert, no distress, well nourished, well developed male. Genitourinary: normal scrotum, normal testes, normal urethra, normal epididymis, normal vas deferens/spermatic cord. Flank Pain: none. Bladder: nonpalpable. Assessment/Plan 1. Prostate cancer (C61: Malignant neoplasm of prostate) PSA: 03/09/21 - 4.6 10/05/21 - 3.8 04/16/22 - 0.26 TRUS/bx 06/07/21 - Brady score 6 (3+3) in one core. S/p Brachytherapy 08/28/21. Last oncology appt 04/19/22 - Plan is to follow up q6m w/PSA for the first 2 yrs then annually. PSA decreased. Will cont to monitor. Follow up 6 mos with PSA or sooner if needed. Pt understands and agrees with plan. 2. BPH with urinary obstruction (N40.1: Benign prostatic hyperplasia with lower urinary tract symptoms) UA today negative for blood and infection. Started Alfuzosin 10 mg ER qd after supper, at prior OV. has not been taking consistently however. Voiding wo complaint even when he forgets to take med for a few days. Discussed considering to d/c Alfuzosin in 1 yr. -Take Alfuzosin in the morning with daily supplements instead of after dinner. 3. Erectile dysfunction after prostate brachytherapy (N52.35: Erectile dysfunction following radiation therapy) Started Cialis 20 mg prn at prior OV. Feels it is not effective. Was able to achieve full erection prior to brachy but has had trouble since brachy. Can achieve 50% of erection with Cialis. Discussed other options for ED tx including MARIE and ICI. Risks and benefits discussed. -Pt to notify office which tx option, if any, he would like to pursue. Follow-up With When Contact Information SONNY CODY, Tomasz Quigley, URL [facility] [address], [place] [address]- Additional Instructions: 6 mos PSA Patient Education Erectile Dysfunction I, Mary Ann Chilel, personally scribed for Dr. Escobar on 08/12/2022 11:00:48. . Documentation recorded by the scribe, Mary Ann Chilel, accurately reflects the services(s) I performed and decisions made by me. Authenticated by Dr. Escobar on 08/12/2022 11:03:07. Problem List/Past Medical History Ongoing BPH with urinary obstruction Erectile dysfunction after prostate brachytherapy Hypertension Nocturia Prostate cancer Historical Hyperlipidemia Procedure/Surgical History Brachytherapy (08/28/2021), Biopsy of prostate (06/07/2021), Dilation of esophagus (2015), Appendectomy, Colonoscopy. Medications alfuzosin 10 mg ER Tab, 10 mg= 1 tab(s), Oral, Daily, 6 refills bisoprolol-hydrochloro thiazide 2.5 mg-6.25 mg Tab, 1 tab(s), Oral, Daily, 1 refills Cialis 20 mg Tab, 20 mg= 1 tab(s), Oral, Daily, 6 refills, Not taking Vitamin D3 2000 intl units, 1 tab, Oral, Daily Allergies penicillin (father gets really sick, in the family) Social History Alcohol Current, Beer, 1-2 times per week, 06/04/2021 Substance Abuse - Denies Substance Abuse, 06/04/2021 Tobacco - Denies Tobacco Use, 04/24/2021 Never (less than 100 in lifetime) Tobacco Use:. Never Smokeless Tobacco Use: (more content not included)... [facility] Comment on above: Result Comment: Elec tronically Signed By: Tomasz ESCOBAR MD\.br\Date and Time Signed: 08/12/22 11:03 EDT\.br\Electronically Co-Signed By: Mary Ann Chilel\.br\Date and Time Co-Signed: 08/12/22 11:01 EDT Consultation Noteon 04-23-19 Consultation Note [id number] 0CD:127 [facility] CNOVon 04-19-2022 CNOV Office Visit (RADTSA ) BRAXTON STODDARD ([id number]) 1960 M Date Time Provider Department 04/19/22 10:15 AM Marie ROMEO During your visit today, we recorded the following information about you: Temperature Pulse Respiration Blood pressure 97.2 degrees 54/minute 16/minute 172/84 Weight 116 kg G Chato Romeo MD 04/25/2022 1:52 PM Signed Radiation Oncology - Follow Up Note PATIENT NAME: Braxton Stoddard PATIENT DIAGNOSIS: Prostate adenocarcinoma, initial PSA 4.6, biopsy Brady score 3 + 3 = 6 (grade group 1), clinical stage T1c, N0, M0, stage I [cT1a-c/T2a, N0, M0, PSA <10, GG 1] (AJCC 8th ed.), s/p TRUS Random biopsy. RADIATION SUMMARY:, Prostate brachytherapy 08/20/2021 145 Gy using I-125 sources. 76 sources, 29.64 mCi 19 needles INTERVAL HISTORY: Doing well. Bladder function improving. No new problems. 10/09/21:Urinary function improving still with frequency and urgency. Denies hematuria. No fever. No perirectal or perineal pain. PSA HISTORY: PSA. (no units) Date Value 04/16/2022 0.26 10/05/2021: 3.8 ALLERGIES No Known Allergies keTORolac (TORADOL) 10 mg tablet Take 10 mg by mouth every 6 hours as needed. bisoprolol-hydroCHLORO thiazide (ZIAC) 2.5-6.25 mg per tablet Take 1 tablet by mouth once daily. REVIEW OF SYSTEMS: D/N = 4/2-4 Hematuria: none Dysuria: none Incontinence: none Urgency: moderate Catheter use: none Medications to aid urination: no - Total AUA Score: 11 Bowel movement frequency: 1/day Bowel movement quality: normal Blood per rectum: none PHYSICAL EXAM: BP 172/84 Pulse (!) 54 Temp 36.2 ?C (97.2 ?F) (Temporal) Resp 16 Wt 116 kg (255 lb 12.8 oz) SpO2 100% BMI (P) 35.68 kg/m? KPS: 100 General Appearance: Alert and oriented. No acute distress. Rectal exam is deferred. ASSESSMENT/PLAN: Prostate adenocarcinoma, initial PSA 4.6, biopsy Brady score 3 + 3 = 6 (grade group 1), clinical stage T1c, N0, M0, stage I [cT1a-c/T2a, N0, M0, PSA <10, GG 1] (AJCC 8th ed.), s/p TRUS Random biopsy. Patient overall doing well. He has had a good initial PSA response. No significant sequelae from brachytherapy treatment last year. Recommend continued close observation with serial PSA. Signed by: Marie Romeo MD cc: Barbara Porter [address] [place] [id number] Referring Provider: Marie ROMEO [[id number]] Allergies As of Date: 04/19/2022 (No Known Allergies) Date Reviewed: 04/19/2022 Reviewed by: Pradip Ulrich APRN.PRODUCT COMMUNICATIONS MANAGER - Fully Assessed Reason for Visit: Prostate Cancer [590] Cmt: 6 month follow up Primary Visit Diagnosis:Malignant neoplasm of prostate (HCC) [C61] Order(s):PSA (OUTSIDE) [[id number]] Order #: [id number] PSA/PROSTSPECAG DIAG [SQPSA] Order #: [id number] FUTURE Prescriptions as of 04/25/2022 - alfuzosin SR (UROXATRAL) 10 mg 24 hr tablet Take 10 mg by mouth once daily. - Tadalafil (CIALIS) 20 mg tab(s) Take 20 mg by mouth once daily. - bisoprolol-hydroCHLORO thiazide (ZIAC) 2.5-6.25 mg per tablet Take 1 tablet by mouth once daily. Problem List As Of Date 04/19/2022 Noted Resolved Prostate cancer (HCC) [C61] 04/19/2022 Medications Discontinued During This Encounter Prescriptions - keTORolac (TORADOL) 10 mg tablet (Discontinued) Take 10 mg by mouth every 6 hours as needed. Disposition: Return in about 6 months (around 10/17/2022). Follow-up and Disposition History for Encounter Date Provider Department Center 04/19/2022 [id number] [facility] Encounter Status:Closed by Marie ROMEO on 04/25/22 [facility] CNOVSPon 04-19-2022 CNOVSP Visit (SP) Office ([place]) BRAXTON STODDARD ([id number]) 1960 M Date Time Provider Department 04/19/22 10:30 AM PRADIP ULRICH During your visit today, we recorded the following information about you: Pradip Ulrich APRN.PRODUCT COMMUNICATIONS MANAGER 04/19/2022 12:42 PM Signed Braxton Epstein Richi was seen and examined by Dr. Romeo today. He denies any problems with bowel movements. He is urinating well without any pain, burning or difficulty. He was given treatment survivorship care plan for prostate cancer. Pradip Ulrich APRN.PRODUCT COMMUNICATIONS MANAGER Discussed Referring Provider: Marie ROMEO [[id number]] Allergies As of Date: 04/19/2022 (No Known Allergies) Date Reviewed: 04/19/2022 Reviewed by: Pradip Ulrich APRN.PRODUCT COMMUNICATIONS MANAGER - Fully Assessed Visit Diagnosis:Prostate cancer (HCC) [C61] Prescriptions as of 04/19/2022 - alfuzosin SR (UROXATRAL) 10 mg 24 hr tablet Take 10 mg by mouth once daily. - Tadalafil (CIALIS) 20 mg tab(s) Take 20 mg by mouth once daily. - bisoprolol-hydroCHLORO thiazide (ZIAC) 2.5-6.25 mg per tablet Take 1 tablet by mouth once daily. Problem List As Of Date 04/19/2022 Noted Resolved Prostate cancer (HCC) [C61] 04/19/2022 Encounter Status:Closed by PRADIP ULRICH on 04/19/22 [facility] XR HAND RT MIN 3Von 12-18-19 22 XR HAND RT MIN 3V EXAM: XR HAND RT MIN 3V HISTORY: Cut palm of hand on nail COMPARISON: None. TECHNIQUE: 3 views FINDINGS: No osseous lesion, fracture, dislocation or subluxation. 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 No radiodense foreign body. Joint spaces are normal. No visualized effusion. No visualized soft tissue edema. IMPRESSION: Normal x-rays Electronically authenticated by: CATERINA CHAVEZ Date: 2021-12-17 18:59 Normal [facility] XR PELVIS 1_2 VIEWSon 2021 XR PELVIS 1_2 VIEWS EXAMINATION: XR PELVIS 1_2 VIEWS HISTORY: History of prostate seed brachytherapy COMPARISON: No relevant comparison available. FINDINGS: 1 image. 18 seconds of fluoroscopy Single image demonstrates prostate seed implantation. Iodinated contrast with urinary bladder IMPRESSION: Image from prostate seed implantation Electronically authenticated by: CATERINA SANDHU Date: 2021-08-29 08:06 Normal [facility] Covid-19 PCR (CVDTB)on 08-02 SARS-CoV-2 (COVID-19) RNA SILVA+probe Ql (Unsp spec) Not detected Normal NOT DETECTED [facility] Comment on above: Result Comment: This test is not yet approved or cleared by the [place] FDA. When there are no FDA-approved or cleared tests available, and other criteria are met, FDA can make tests available under an emergency access mechanism called an Emergency Use Authorization (EUA). The EUA for this test is supported by the Prospect of Health and Human Service's (HHS's) declaration that circumstances exist to justify the emergency use of in vitro diagnostics for the detection and/or diagnosis of the virus that causes COVID-19. This EUA will remain in effect (meaning this test can be used) for the duration of the COVID-19 declaration justifying emergency of IVDs, unless it is terminated or revoked by FDA (after which the test may no longer be used). When diagnostic testing is negative, the possibility of a false negative should be considered in the context of a patient's recent exposures and the presence of clinical signs and symptoms consistent with SARS-CoV-2. Performed By: #### C VDTB #### [facility] [address] [place] [address] Dr. Lisandra Cisneros PROF CHEM 8 (BAS METB)on Anion gap [Moles/Vol] 10.7 mmol/L Normal [facility] Comment on above: Performed By: #### B MP #### [facility] [address] [address] [address] Lisandra Cisneros Calcium [Mass/Vol] 9.0 mg/dL Normal 8.5-10.1 [facility] Comment on above: Performed By: #### B MP #### [facility] [address] [address] [address] Lisandra Cisneros Chloride [Moles/Vol] 98 mmol/L Normal 98-107 [facility] Comment on above: Performed By: #### B MP #### [facility] [address] [address] [address] Lisandra Cisneros CO2 [Moles/Vol] 27.7 mmol/L Normal 21.0-32.0 [facility] Comment on above: Performed By: #### B MP #### [facility] [address] [address] [address] Lisandra Cisneros Creatinine [Mass/Vol] 0.87 mg/dL Normal 0.70-1.30 [facility] Comment on above: Performed By: #### B MP #### [facility] [address] [address] [address] Lisandra Cisneros EGFR-AF MALAYSIAN >60 Normal >=60 [facility] Comment on above: Performed By: #### B MP #### [facility] [address] [address] [address] Lisandra Cisneros EGFR-NON AF MALAYSIAN >60 Normal >=60 [facility] Comment on above: Performed By: #### B MP #### [facility] [address] [address] [address] Lisandra Cisneros Glucose [Mass/Vol] 101 mg/dL Normal 74-106 [facility] Comment on above: Performed By: #### B MP #### [facility] [address] [address] [address] Lisandra Cinseros Potassium [Moles/Vol] 4.4 mmol/L Normal 3.5-5.1 [facility] Comment on above: Performed By: #### B MP #### [facility] [address] [place], [place] [address] Dr. Lisandra Cisneros Sodium [Moles/Vol] 132 mmol/L Critically low 136-145 [facility] Comment on above: Performed By: #### B MP #### [facility] [address] [place], [place] [address] Dr. Lisandra Cisneros Urea nitrogen [Mass/Vol] 13.0 mg/dL Normal 7.0-18.0 [facility] Comment on above: Performed By: #### B MP #### [facility] [address] [place], [place] [address] Dr. Lisandra Cisneros Urea nitrogen/Creatinin e [Mass ratio] 14.9 mg/mg Normal [facility] Comment on above: Performed By: #### B MP #### [facility] [address] [place], [place] [address] Dr. Lisandra Cisneros Vital Signs Date Time Vital Sign Value Performing Clinician Facility 04-16-2023 10:13050 Body temperature 97.5 [degF] NA Agueda CODY Work Phone: [facility] 04-16-2023 10:13-0500 Body weight 111.7 kg INGRID Romeo MD Work Phone: [facility] 04-16-2023 10:13-0500 Diastolic blood pressure 86 mm[Hg] INGRID Romeo MD Work Phone: [facility] 04-16-2023 10:13-0500 Heart rate 52 /min INGRID Romeo MD Work Phone: [facility] 04-16-2023 10:13-0500 Respiratory rate 18 /min INGRID Romeo MD Work Phone: [facility] 04-16-2023 10:13-0500 SaO2% (BldA) [Mass fraction] 99 % INGRID Romeo MD Work Phone: [facility] 04-16-2023 10:13-0500 Systolic blood pressure 132 mm[Hg] INGRID Romeo MD Work Phone: [facility] 04-19-2022 10:12-0500 Body temperature 97.2 [degF] INGRID Romeo MD Work Phone: [facility] 04-19-2022 10:12-0500 Body weight 116.03 kg INGRID Romeo MD Work Phone: [facility] 04-19-2022 10:12-0500 Diastolic blood pressure 84 mm[Hg] INGRID Romeo MD Work Phone: [facility] 04-19-2022 10:12-0500 Heart rate 54 /min INGRID Romeo MD Work Phone: [facility] 04-19-2022 10:12-0500 Respiratory rate 16 /min INGRID Romeo MD Work Phone: [facility] 04-19-2022 10:12-0500 SaO2% (BldA) [Mass fraction] 100 % INGRID Romeo MD Work Phone: [facility] 04-19-2022 10:12-0500 Systolic blood pressure 172 mm[Hg] INGRID Romeo MD Work Phone: [facility] 02-11-2022 13:08-0500 Blood Pressure Location Tomasz ESCOBAR [facility] 02-11-2022 13:08-0500 Diastolic blood pressure 101 mm[Hg] Tomasz ESCOBAR [facility] 02-11-2022 13:08-0500 Heart rate 66 /min Tomasz ESCOBAR [facility] 02-11-2022 13:08-0500 Systolic blood pressure 137 mm[Hg] Tomasz ESCOBAR [facility] 10-09-2021 14:56-0400 Body temperature 98.01 [degF] INGRID Romeo MD Work Phone: [facility] 10-09-2021 14:56-0400 Body weight 111.13 kg INGRID Romeo MD Work Phone: [facility] 10-09-2021 14:56-0400 Diastolic blood pressure 94 mm[Hg] INGRID Romeo MD Work Phone: [facility] 10-09-2021 14:56-0400 Heart rate 56 /min INGRID Romeo MD Work Phone: [facility] 10-09-2021 14:56-0400 Respiratory rate 18 /min INGRID Romeo MD Work Phone: [facility] 10-09-2021 14:56-0400 SaO2% (BldA) [Mass fraction] 100 % INGRID Romeo MD Work Phone: [facility] 10-09-2021 14:56-0400 Systolic blood pressure 152 mm[Hg] INGRID Romeo MD Work Phone: [facility] 09-25-2021 09:54-0400 Blood Pressure Location Rohan Parmar Jr. [facility] 09-25-2021 09:54-0400 Diastolic blood pressure 99 mm[Hg] Rohan Parmar Jr. [facility] 09-25-2021 09:54-0400 Heart rate 52 /min Rohan Parmar Jr. [facility] 09-25-2021 09:54-0400 Respiratory rate 16 /min Rohan Parmar Jr. [facility] 09-25-2021 09:54-0400 Systolic blood pressure 178 mm[Hg] Rohan Parmar Jr. [facility] 09-11-2021 14:00-0400 Body temperature 96.91 [degF] INGRID Romeo MD Work Phone: [facility] 09-11-2021 14:00-0400 Body weight 109.77 kg INGRID Romeo MD Work Phone: [facility] 09-11-2021 14:00-0400 Diastolic blood pressure 88 mm[Hg] INGRID Romeo MD Work Phone: [facility] 09-11-2021 14:00-0400 Heart rate 59 /min INGRID Romeo MD Work Phone: [facility] 09-11-2021 14:00-0400 Respiratory rate 16 /min INGRID Romeo MD Work Phone: [facility] 09-11-2021 14:00-0400 SaO2% (BldA) [Mass fraction] 100 % INGRID Romeo MD Work Phone: [facility] 09-11-2021 14:00-0400 Systolic blood pressure 123 mm[Hg] INGRID Romeo MD Work Phone: [facility] 07-10-2021 11:07-0400 Diastolic blood pressure 92 mm[Hg] Rohan Parmar Jr. [facility] 07-10-2021 11:07-0400 Mean blood pressure 108 mm[Hg] Rohan Parmar Jr. [facility] 07-10-2021 11:07-0400 Systolic blood pressure 140 mm[Hg] Rohan Parmar Jr. [facility] 07-10-2021 10:57-0400 Blood Pressure Location Rohan Parmar Jr. [facility] 07-10-2021 10:57-0400 Diastolic blood pressure 96 mm[Hg] Rohan Parmar Jr. [facility] 07-10-2021 10:57-0400 Heart rate 78 /min Rohan Parmar Jr. [facility] 07-10-2021 10:57-0400 Respiratory rate 16 /min Rohan Parmar Jr. [facility] 07-10-2021 10:57-0400 Systolic blood pressure 142 mm[Hg] Rohan Parmar Jr. [facility] 06-26-2021 11:17-0400 Blood Pressure Location Rohan Parmar Jr. [facility] 06-26-2021 11:17-0400 Diastolic blood pressure 117 mm[Hg] Rohan Parmar Jr. [facility] 06-26-2021 11:17-0400 Heart rate 71 /min Rohan Parmar Jr. [facility] 06-26-2021 11:17-0400 Respiratory rate 16 /min Rohan Parmar Jr. [facility] 06-26-2021 11:17-0400 Systolic blood pressure 171 mm[Hg] Rohan Parmar Jr. [facility] [place] 06-07-2021 13:50-0400 Blood Pressure Location Rohan Parmar Jr. [facility] 06-07-2021 13:50-0400 BP/Pulse Patient Position Rohan Parmar Jr. [facility] 06-07-2021 13:50-0400 Diastolic blood pressure 98 mm[Hg] Rohan Parmar Jr. [facility] 06-07-2021 13:50-0400 Heart rate 56 /min Rohan Parmar Jr. [facility] 06-07-2021 13:50-0400 Mean blood pressure 120 mm[Hg] Rohan Parmar Jr. [facility] 06-07-2021 13:50-0400 Respiratory rate 18 /min Rohan Parmar Jr. [facility] 06-07-2021 13:50-0400 SaO2% (BldA) [Mass fraction] 100 % Rohan Parmar Jr. [facility] 06-07-2021 13:50-0400 Systolic blood pressure 163 mm[Hg] Rohan Parmar Jr. [facility] 06-07-2021 12:15-0400 Blood Pressure Location Rohan Parmar Jr. [facility] 06-07-2021 12:15-0400 Diastolic blood pressure 68 mm[Hg] Rohan Parmar Jr. [facility] 06-07-2021 12:15-0400 Heart rate 51 /min Rohan Parmar Jr. [facility] 06-07-2021 12:15-0400 Respiratory rate 16 /min Rohan Parmar Jr. [facility] 06-07-2021 12:15-0400 SaO2% (BldA) [Mass fraction] 96 % Rohan Parmar Jr. [facility] 06-07-2021 12:15-0400 Systolic blood pressure 126 mm[Hg] Rohan Parmar Jr. [facility] 06-07-2021 12:10-0400 Body temperature 97.52 [degF] Rohan Parmar Jr. [facility] 06-07-2021 12:10-0400 Diastolic blood pressure 90 mm[Hg] Rohan Parmar Jr. [facility] 06-07-2021 12:10-0400 Heart rate 52 /min Rohan Parmar Jr. [facility] 06-07-2021 12:10-0400 Respiratory rate 10 /min Rohan Parmar Jr. [facility] 06-07-2021 12:10-0400 SaO2% (BldA) [Mass fraction] 94 % Rohan Parmar Jr. [facility] 06-07-2021 12:10-0400 SaO2% (BldA) [Mass fraction] 95 % Rohan Parmar Jr. [facility] 06-07-2021 12:10-0400 Systolic blood pressure 139 mm[Hg] Rohan Parmar Jr. [facility] 06-07-2021 11:55-0400 Respiratory rate 9 /min Rohan Parmar Jr. [facility] 06-07-2021 11:50-0400 Respiratory rate 10 /min Rohan Parmar Jr. [facility] 06-07-2021 11:41-0400 Body temperature 97.88 [degF] Rohan Parmar Jr. [facility] 06-07-2021 11:30-0400 Respiratory rate 17 /min Rohan Ghulam Larkin [facility] 06-07-2021 09:41-0400 Blood Pressure Location Rohan Parmar Jr. [facility] 06-07-2021 09:40-0400 Body temperature 98.6 [degF] Rohan Ghulam Larkin [facility] 06-07-2021 09:40-0400 Heart rate 72 /min Rohan Parmar Jr. [facility] Encounters Encounter Date Encounter Type Care Provider Facility Start: 04-16-2024 ambulatory Tomasz ESCOBAR [facility]:LENORE Pate Start: 04-16-2023 End: 04-16-2023 ambulatory Marie ROMEO Facility:[facility] Start: 04-16-2023 End: 04-16-2023 Patient encounter procedure Marie Romeo MD Work Phone: Radiation Oncology Comment on above: Malignant neoplasm o f prostate (HCC) (Primary Dx) Start: 04-14-2023 End: 04-15-2023 ambulatory Tomasz ESCOBAR Facility:[facility] [place] Start: 04-14-2023 End: 04-14-2023 Patient encounter procedure Tomasz ESCOBAR [facility] [place] Start: 10-15-2022 End: 10-16-2022 ambulatory Marie ROMEO Facility:[facility] Start: 08-12-2022 End: 08-13-2022 ambulatory Tomasz ESCOBAR Facility:[facility] [place] Start: 06-27-2022 ambulatory Tomasz ESCOBAR Facility :[facility] [place] Start: 04-19-2022 End: 04-19-2022 ambulatory Marie ROMEO Facility:[facility] Start: 04-19-2022 End: 04-19-2022 ambulatory Pradip Ulrich [employer] COMM[employer]ICATIONS MANAGER Work Phone: Hematology/Oncology Comment on above: Prostate cancer (HCC ) Start: 04-19-2022 End: 04-19-2022 Patient encounter procedure Pradip Ulrich [employer] DEVELOPER.PRODUCT COMMUNICATIONS MANAGER Work Phone: [facility] Comment on above: Malignant neoplasm o f prostate (HCC) (Primary Dx) Start: 04-16-2022 End: 04-17-[address] MACKENZIE ROMEO Facility:[facility] Start: 02-12-2022 End: 02-13-[address] BARBARA PORTER Facility:[facility] Start: 02-11-2022 End: 02-11-2022 Patient encounter procedure Tomasz ESCOBAR [facility] Start: 01-16-2022 End: 01-17-[address] BARBARA PORTER Facility:[facility] Start: 12-17-2021 End: 12-17-[address] BARBARA PORTER Facility:[facility] Start: 10-09-2021 End: 10-09-2021 Patient encounter procedure Marie Romeo MD Work Phone: Radiation Oncology Comment on above: Malignant neoplasm o f prostate (HCC) (Primary Dx) Start: 10-05-2021 End: 10-06-[address] MACKENZIE ROMEO Facility:[facility] Start: 09-26-2021 Patient encounter procedure Marie Romeo MD Work Phone: [facility] Start: 09-26-2021 Radiation Oncology Note Marie Romeo MD Work Phone: Radiation Oncology Comment on above: Simulation Note Start: 09-25-2021 End: 09-25-2021 Patient encounter procedure Rohan Parmar Jr. [facility] Start: 09-11-2021 End: 09-11-2021 Patient encounter procedure Marie Romeo MD Work Phone: Radiation Oncology Comment on above: Malignant neoplasm o f prostate (HCC) (Primary Dx) Start: 08-28-2021 End: 08-28-[address] ROHAN PARMAR JR Facility:[facility] Start: 08-28-2021 End: 08-28-2021 Patient encounter procedure Marie Romeo MD Work Phone: Radiation Oncology Comment on above: Malignant neoplasm o f prostate (HCC) (Primary Dx) Start: 08-28-2021 Encounter for preprocedural laboratory examination DR ROHAN PARMAR JR [facility] Start: 08-23-2021 End: 08-24-[address] ROHAN PARMAR JR Facility:[facility] Start: 08-23-2021 End: 08-24-2021 Encounter for preprocedural laboratory examination DR ROHAN PARMAR JR Facility:[facility] Start: 08-17-2021 Encounter for preprocedural cardiovascular examination DR ROHAN PARMAR JR [facility] Start: 08-17-2021 Encounter for preprocedural laboratory examination DR ROHAN PARMAR JR [facility] Start: 08-16-2021 End: 08-17-[address] ROHAN PARMAR JR Facility:[facility] Start: 08-16-2021 End: 08-17-2021 Encounter for preprocedural cardiovascular examination DR ROHAN PARMAR JR Facility:[facility] Start: 08-07-2021 End: 08-07-2021 Patient encounter procedure Marie Romeo MD Work Phone: Radiation Oncology Comment on above: Malignant neoplasm o f prostate (HCC) (Primary Dx) Start: 08-07-2021 Radiation Oncology Note Marie Romeo MD Work Phone: Radiation Oncology Comment on above: Simulation Note Start: 08-03-2021 Patient encounter procedure [facility] Provider [facility] Department Start: 08-02-2021 Patient encounter procedure [facility] Provider [facility] Start: 07-24-2021 End: 07-24-2021 Patient encounter procedure Marie Romeo MD Work Phone: Radiation Oncology Comment on above: Malignant neoplasm o f prostate (HCC) (Primary Dx) Start: 07-10-2021 End: 07-10-2021 Patient encounter procedure Rohan Parmar Jr. [facility] Start: 06-26-2021 End: 06-26-2021 Patient encounter procedure Rohan Parmar Jr. [facility] Start: 06-07-2021 End: 06-07-2021 Admission to same day surgery center Rohan Parmar Jr. [facility] Procedures Date Procedure Procedure Detail Performing Clinician Start: 01-29-2023 PSA screening [facility] Provi bob Start: 04-16-2022 End: 04-16-2022 PSA screening [facility] Provider Comment on above: Performed By: #### P SAD #### [facility] [address] [place] [address] Dr. Lisandra Cisneros Start: 10-05-[address] ROHAN PARMAR JR Comment on above: Performed By: #### P SAD #### [facility] [address] [place] [address] Dr. Lisandra Cisneros Start: 08-28-2021 Brachytherapy Tomasz BRAR Start: 06-07-2021 Biopsy of prostate Uma Parmar Jr. Start: 03-03-2015 Dilation of esophagus D hien Parmar Jr. Appendectomy Rohan Islas Colonoscopy Rohan Islas Plan of Treatment Date Care Activity Detail Author Start: 12-18-2031 Urine microalbumin profile DTaP,Tdap,Td Vaccine (2 - Tdap) [facility] Start: 01-30-2028 Prostate specific antigen measurement Prostate Cancer Screening Discussion [facility] Start: 04-16-2027 PROSTATE CANCER SCREENING DISCUSSION PROSTATE CANCER SCREENING DISCUSSION [facility] Start: 10-05-2026 PROSTATE CANCER SCREENING DISCUSSION PROSTATE CANCER SCREENING DISCUSSION [facility] Start: 10-15-2023 End: 01-14-2024 Prostate specific Ag [Mass/volume] in Serum or Plasma PSA/PROSTSPECAG DIAG Lab Routine Malignant neoplasm of prostate (HCC) Expected: 10/15/2023, Expires: 01/14/2024 [facility] Work Phone: Comment on above: Expected: 10/15/2023 , Expires: 01/14/2024 Start: 03-03-2023 Depression Assessment Depression Ass [facility] Start: 11-01-2022 Influenza vaccination Influenza Vacc ine (#1) [facility] Start: 10-17-2022 End: 12-17-2022 Prostate specific Ag [Mass/volume] in Serum or Plasma PSA/PROSTSPECAG DIAG Lab Routine Malignant neoplasm of prostate (HCC) Expected: 10/17/2022, Expires: 12/17/2022 [facility] Work Phone: Comment on above: Expected: 10/17/2022 , Expires: 12/17/2022 Start: 04-11-2022 End: 06-11-2022 Prostate specific Ag [Mass/volume] in Serum or Plasma PSA/PROSTSPECAG DIAG Lab Routine Malignant neoplasm of prostate (HCC) Expected: 04/11/2022, Expires: 06/11/2022 [facility] Work Phone: Comment on above: Expected: 04/11/2022 , Expires: 06/11/2022 Start: 03-03-2022 [facility] Start: 11-01-2021 Influenza vaccination [facility] Start: 10-12-2021 End: 12-12-2021 Prostate specific Ag [Mass/volume] in Serum or Plasma PSA/PROSTSPECAG DIAG Lab Routine Malignant neoplasm of prostate (HCC) Expected: 10/12/2021, Expires: 12/12/2021 [facility] Work Phone: Comment on above: Expected: 10/12/2021 , Expires: 12/12/2021 Start: 2021 RSV Vaccine (1 - 1-d ose 60+ series) RSV Vaccine (1 - 1-dose 60+ series) [facility] Start: 2016 PROSTATE CANCER SCREENING DISCUSSION PROSTATE CANCER SCREENING DISCUSSION [facility] Start: 2011 SHINGRIX VACCINE (1 of 2) SHINGRIX VACCINE (1 of 2) [facility] Start: 2006 COLOGUARD (FIT-DNA) COLOGUARD (FIT-D NA) [facility] Start: 2006 Colonoscopy COLONOSCOPY [facility] Start: 2006 COLORECTAL CANCER SCREENING COLORECTAL CANCER SCREENING [facility] Start: [address] COLONOGRAPHY [facility] Start: 2006 DIABETES SCREEN DIABETES SCREEN [facility] Start: 2006 Diabetes Screening Diabetes Screenin g [facility] Start: 2006 FECAL OCCULT BLOOD FECAL OCCULT BLOO D [facility] Start: 2006 Screening for malign ant neoplasm of colon [facility] Start: 2006 SIGMOIDOSCOPY SIGMOIDOSCOPY [facility] Start: 1996 Lipid panel Lipid Screening [facility] Start: 1996 LIPID SCREEN LIPID SCREEN [facility] Start: 1980 SHINGRIX VACCINE (1 of 2) SHINGRIX VACCINE (1 of 2) [facility] Start: 1980 Urine microalbumin profile DTAP,TDAP,TD (1 - Tdap) [facility] Start: 1979 HEPATITIS C SCREENING HEPATITIS C [facility] Start: 1979 Hepatitis C screening Hepatitis C [facility] Start: 1979 HIV SCREENING HIV SCREENING [facility] Start: 1979 HIV screening HIV Screening [facility] Start: 1973 Adult depression screening assessment DEPRESSION SCREENING [facility] Start: 1967 PNEUMOCOCCAL (1 - PCV) PNEUMOCOCCAL (1 - PCV) [facility] Start: 1966 COVID-19 VACCINE (#1) COVID-19 VACCI NE (#1) [facility] Start: 1961 COVID-19 VACCINE (#1) COVID[facility]19 [facility]ACCI [facility] Payers Date Payer Category Payer Unknown [id number] 2021 Unknown MMO MMO [employer] [id number] 2021-Present [phone] [address] [place] [address] PPO [id number] 2021 Unknown [id number] 2019 Unknown [id number] 1961 Unknown [id number] 1961 Unknown [id number] 1961 Unknown [id number] 1961 Unknown [id number] 1961 Unknown [id number] 1961 Unknown [id number] 1961 Unknown [id number] 1961 Unknown [id number] 1961 Unknown [id number] 1961 Unknown [id number] 1961 Unknown [id number] Social History Date Type Detail Facility Tobacco smoking status [facility] sm[facility] Start: 10-15-2022 End: 04-16-2023 Sex Assigned At Male [facility] Start: 06-26-2021 End: 10-09-2021 Tobacco smoking status Never smoked tobacco (finding) [facility] Start: 07-24-2021 End: 10-09-2021 Tobacco use and exposure Former smokeless tobacco user [facility] Start: 07-24-2021 End: 04-16-2023 Alcohol intake Current drinker of alcohol (finding) [facility] Start: 07-24-2021 History SDOH Alcohol Comment weekly-socially [facility] Start: 1960 Sex Assigned At Male [facility] Start: 07-14-2021 End: 10-09-2021 Exposure to SARS-CoV-2 (event) Not sure [facility] [facility] Tobacco smoking status Never [facility] Start: 10-15-2022 End: 04-16-2023 History of Social function [facility] Start: 07-18-2021 Gender identity Identifies as male gender (finding) [facility] Start: 07-18-2021 Sexual orientation Heterosexual (fin ding) [facility] Functional Status Date Assessment Result Facility 04-14-2023 Functional Status N/A [facility] 02-11-2022 Functional Status N/A [facility] 09-25-2021 Functional Status N/A [facility] Clinical Notes 06-07-2021 to 04-16-2023 Janelle Ch LPN - 04/16/2023 10:14 AM Marie Fish MD - 04/16/2023 10:02 AM Melyssa Ulrich APRN.PRODUCT COMMUNICATIONS MANAGER - 04/19/2022 12:39 PM GLENNG Chato Romeo MD - 04/19/2022 10:03 AM EST Note Date & Type Note Facility 04-16-2023 Note HNO ID: [id number] Author: Marie ROMEO MD Service: ? Author Type: Physician Type: Progress Notes Filed: 04/16/2023 10:28 Note Text: Radiation Oncology - Follow Up Note PATIENT NAME: Braxton Stoddard PATIENT DIAGNOSIS: Prostate adenocarcinoma, initial PSA 4.6, biopsy Brady score 3 + 3 = 6 (grade group 1), clinical stage T1c, N0, M0, stage I [cT1a-c/T2a, N0, M0, PSA <10, GG 1] (AJCC 8th ed.), s/p TRUS Random biopsy. RADIATION SUMMARY:, Prostate brachytherapy 08/20/2021 145 Gy using I-125 sources. 76 sources, 29.64 mCi 19 needles INTERVAL HISTORY: Doing well. Bladder function continues to improve. 10/09/21:Urinary function improving still with frequency and urgency. Denies hematuria. No fever. No perirectal or perineal pain. PSA HISTORY: PSA. (no units) Date Value 01/29/2023 0.13 10/08/2022 0.15 04/16/2022 0.26 10/05/2021: 3.8 ALLERGIES No Known Allergies alfuzosin SR (UROXATRAL) 10 mg 24 hr tablet Take 10 mg by mouth every other day. bisoprolol-hydroCHLOROthiazide (ZIAC) 2.5-6.25 mg per tablet Take 1 tablet by mouth once daily. Tadalafil (CIALIS) 20 mg tab(s) Take 20 mg by mouth once daily. REVIEW OF SYSTEMS: D/N = 4/1-2 Hematuria: none Dysuria: none Incontinence: none Urgency: min Catheter use: none Medications to aid urination: no - Total AUA Score: 7 Bowel movement frequency: 1/day Bowel movement quality: normal Blood per rectum: none PHYSICAL EXAM: BP 132/86 Pulse (!) 52 Temp 36.4 ?C (97.5 ?F) Resp 18 Wt 111.7 kg (246 lb 4.1 oz) SpO2 99% BMI (P) 34.35 kg/m? KPS: 100 General Appearance: Alert and oriented. No acute distress. No neck supraclavicular or axillary lymphadenopathy Rectal exam is deferred. ASSESSMENT/PLAN: Prostate adenocarcinoma, initial PSA 4.6, biopsy Brady score 3 + 3 = 6 (grade group 1), clinical stage T1c, N0, M0, stage I [cT1a-c/T2a, N0, M0, PSA <10, GG 1] (AJCC 8th ed.), s/p TRUS Random biopsy. Patient overall doing well. PSA continues to decline. No significant posttreatment related problems. Patient has continued close follow-up with urology including surveillance of PSA. I will see patient back in 6 months and if he continues to do well on an as-needed basis. Signed by: Marie Romeo MD cc: Barbara Porter [address] [place] [address] [facility] 04-16-2023 Nurse Note AUA= 7 documented in this encounter [facility] 04-16-2023 History of Present illness Narrative Radiation Oncology - Follow Up Note PATIENT NAME: Braxton Stoddard PATIENT DIAGNOSIS: Prostate adenocarcinoma, initial PSA 4.6, biopsy Glendale score 3 + 3 = 6 (grade group 1), clinical stage T1c, N0, M0, stage I [cT1a-c/T2a, N0, M0, PSA <10, GG 1] (AJCC 8th ed.), s/p TRUS Random biopsy. RADIATION SUMMARY:, Prostate brachytherapy 08/20/2021 145 Gy using I-125 sources. 76 sources, 29.64 mCi 19 needles INTERVAL HISTORY: Doing well. Bladder function continues to improve. 10/09/21:Urinary function improving still with frequency and urgency. Denies hematuria. No fever. No perirectal or perineal pain. PSA HISTORY: PSA. (no units) Date Value 01/29/2023 0.13 10/08/2022 0.15 04/16/2022 0.26 10/05/2021: 3.8 ALLERGIES No Known Allergies alfuzosin SR (UROXATRAL) 10 mg 24 hr tablet Take 10 mg by mouth every other day. bisoprolol-hydroCHLOROthiazide (ZIAC) 2.5-6.25 mg per tablet Take 1 tablet by mouth once daily. Tadalafil (CIALIS) 20 mg tab(s) Take 20 mg by mouth once daily. REVIEW OF SYSTEMS: D/N = 4/1-2 Hematuria: none Dysuria: none Incontinence: none Urgency: min Catheter use: none Medications to aid urination: no - Total AUA Score: 7 Bowel movement frequency: 1/day Bowel movement quality: normal Blood per rectum: none PHYSICAL EXAM: BP 132/86 Pulse (!) 52 Temp 36.4 C (97.5 F) Resp 18 Wt 111.7 kg (246 lb 4.1 oz) SpO2 99% BMI (P) 34.35 kg/m KPS: 100 General Appearance: Alert and oriented. No acute distress. No neck supraclavicular or axillary lymphadenopathy Rectal exam is deferred. ASSESSMENT/PLAN: Prostate adenocarcinoma, initial PSA 4.6, biopsy Glendale score 3 + 3 = 6 (grade group 1), clinical stage T1c, N0, M0, stage I [cT1a-c/T2a, N0, M0, PSA <10, GG 1] (AJCC 8th ed.), s/p TRUS Random biopsy. Patient overall doing well. PSA continues to decline. No significant posttreatment related problems. Patient has continued close follow-up with urology including surveillance of PSA. I will see patient back in 6 months and if he continues to do well on an as-needed basis. Signed by: Marie Romeo MD cc: Barbara Porter [address] [place] [address] documented in this encounter [facility] 04-14-2023 Hospital Discharge instructions Patient Education 04/14/2023 13:20:20 Prostate Cancer Screening Prostate Cancer Screening Prostate cancer screening is testing that is done to check for the presence of prostate cancer in men. The prostate gland is a walnut-sized gland that is located below the bladder and in front of the rectum in males. The function of the prostate is to add fluid to semen during ejaculation. Prostate cancer is one of the most common types of cancer in men. Who should have prostate cancer screening? Screening recommendations vary based on age and other risk factors, as well as between the professional organizations who make the recommendations. In general, screening is recommended if: You are age 50 to 70 and have an average risk for prostate cancer. You should talk with your health care provider about your need for screening and how often screening should be done. Because most prostate cancers are slow growing and will not cause , screening in this age group is generally reserved for men who have a 10- to 15-year life expectancy. You are younger than age 50, and you have these risk factors: ?Having a father, brother, or uncle who has been diagnosed with prostate cancer. The risk is higher if your family member's cancer occurred at an early age or if you have multiple family members with prostate cancer at an early age. ?Being a male who is Black or is of [place] or sub-Saharan descent. In general, screening is not recommended if: You are younger than age 40. You are between the ages of 40 and 49 and you have no risk factors. You are 70 years of age or older. At this age, the risks that screening can cause are greater than the benefits that it may provide. If you are at high risk for prostate cancer, your health care provider may recommend that you have screenings more often or that you start screening at a younger age. How is screening for prostate cancer done? The recommended prostate cancer screening test is a blood test called the prostate-specific antigen (PSA) test. PSA is a protein that is made in the prostate. As you age, your prostate naturally produces more PSA. Abnormally high PSA levels may be caused by: Prostate cancer. An enlarged prostate that is not caused by cancer (benign prostatic hyperplasia, or BPH). This condition is very common in older men. A prostate gland infection (prostatitis) or urinary tract infection. Certain medicines such as male hormones (like testosterone) or other medicines that raise testosterone levels. A rectal exam may be done as part of prostate cancer screening to help provide information about the size of your prostate gland. When a rectal exam is performed, it should be done after the PSA level is drawn to avoid any effect on the results. Depending on the PSA results, you may need more tests, such as: A physical exam to check the size of your prostate gland, if not done as part of screening. Blood and imaging tests. A procedure to remove tissue samples from your prostate gland for testing (biopsy). This is the only way to know for certain if you have prostate cancer. What are the benefits of prostate cancer screening? Screening can help to identify cancer at an early stage, before symptoms start and when the cancer can be treated more easily. There is a small chance that screening may lower your risk of dying from prostate cancer. The chance is small because prostate cancer is a slow-growing cancer, and most men with prostate cancer from a different cause. What are the risks of prostate cancer screening? The main risk of prostate cancer screening is diagnosing and treating prostate cancer that would never have caused any symptoms or problems. This is called overdiagnosisand overtreatment. PSA screening cannot tell you if your PSA is high due to cancer or a different cause. A prostate biopsy is the only procedure to diagnose prostate cancer. Even the results of a biopsy may not tell you if your cancer needs to be treated. Slow-growing prostate cancer may not need any treatment other than monitoring, so diagnosing and treating it may cause unnecessary stress or other side effects. Questions to ask your health care provider When should I start prostate cancer screening? What is my risk for prostate cancer? How often do I need screening? What type of screening tests do I need? How do I get my test results? What do my results mean? Do I need treatment? Where to find more information [employer] [place] [employer]: www.cancer.org [employer]: www.auanet.org Contact a health care provider if: You have difficulty urinating. You have pain when you urinate or ejaculate. You have blood in your urine or semen. You have pain in your back or in the area of your prostate. Summary Prostate cancer is a common type of cancer in men. The prostate gland is located below the bladder and in front of the rectum. This gland adds fluid to semen during ejaculation. Prostate cancer screening may identify cancer at an early stage, when the cancer can be treated more easily and is less likely to have spread to other areas of the body. The prostate-specific antigen (PSA) test is the recommended screening test for prostate cancer, but it has associated risks. Discuss the risks and benefits of prostate cancer screening with your health care provider. If you are age 70 or older, the risks that screening can cause are greater than the benefits that it may provide. This information is not intended to replace advice given to you by your health care provider. Make sure you discuss any questions you have with your health care provider. Document Revised: 08/13/2021 Document Reviewed: 08/13/2021 [employer] Patient Education 2022 [employer]. Follow Up Care 08/12/2022 11:03:54 With:SONNY CODY, Tomasz Quigley, URL Address: [facility] [address] [place] [address]- [phone] When: Unknown Comments:1 yr w/ PSA [facility] 10-15-2022 Note HNO ID: [id number] Author: Marie Romeo MD Service: ? Author Type: Physician Type: Progress Notes Filed: 10/15/2022 2:27 PM Note Text: Radiation Oncology - Follow Up Note PATIENT NAME: Braxton Stoddard PATIENT DIAGNOSIS: Prostate adenocarcinoma, initial PSA 4.6, biopsy Glendale score 3 + 3 = 6 (grade group 1), clinical stage T1c, N0, M0, stage I [cT1a-c/T2a, N0, M0, PSA <10, GG 1] (AJCC 8th ed.), s/p TRUS Random biopsy. RADIATION SUMMARY:, Prostate brachytherapy 08/20/2021 145 Gy using I-125 sources. 76 sources, 29.64 mCi 19 needles INTERVAL HISTORY: Overall feeling much better over the last 3 to 4 months. Bladder function good. No dysuria hematuria. No other new problems. 10/09/21:Urinary function improving still with frequency and urgency. Denies hematuria. No fever. No perirectal or perineal pain. PSA HISTORY: PSA. (no units) Date Value 10/08/2022 0.15 04/16/2022 0.26 10/05/2021: 3.8 ALLERGIES No Known Allergies alfuzosin SR (UROXATRAL) 10 mg 24 hr tablet Take 10 mg by mouth once daily. Tadalafil (CIALIS) 20 mg tab(s) Take 20 mg by mouth once daily. bisoprolol-hydroCHLOROthiazide (ZIAC) 2.5-6.25 mg per tablet Take 1 tablet by mouth once daily. REVIEW OF SYSTEMS: D/N = 4/2-4 Hematuria: none Dysuria: none Incontinence: none Urgency: moderate Catheter use: none Medications to aid urination: no - Total AUA Score: 10 Bowel movement frequency: 1/day Bowel movement quality: normal Blood per rectum: none PHYSICAL EXAM: BP 151/94 Pulse (!) 52 Temp (!) 35.9 ?C (96.7 ?F) Resp 18 Wt 114.3 kg (252 lb) SpO2 100% BMI (P) 35.15 kg/m? KPS: 100 General Appearance: Alert and oriented. No acute distress. No neck supraclavicular or axillary lymphadenopathy Rectal exam is deferred. ASSESSMENT/PLAN: Prostate adenocarcinoma, initial PSA 4.6, biopsy Glendale score 3 + 3 = 6 (grade group 1), clinical stage T1c, N0, M0, stage I [cT1a-c/T2a, N0, M0, PSA <10, GG 1] (AJCC 8th ed.), s/p TRUS Random biopsy. Patient overall doing well. PSA continues to decline. No significant posttreatment related problems. Recommend continued close observation with serial PSA. Signed by: Marie Romeo MD cc: Barbara Porter [address] [place] [address] [facility] 04-19-2022 Note HNO ID: [id number] Author: Pradip Ulrich APRN.CNP Service: ? Author Type: Nurse Practitioner Type: Progress Notes Filed: 04/19/2022 12:42 PM Note Text: Braxton Stoddard was seen and examined by Dr. Romeo today. He denies any problems with bowel movements. He is urinating well without any pain, burning or difficulty. He was given treatment survivorship care plan for prostate cancer. Pradip Ulrich APRN.CNP Discussed [facility] 04-19-2022 History of Present illness Narrative Braxton Stoddard was seen and examined by Dr. Romeo today. He denies any problems with bowel movements. He is urinating well without any pain, burning or difficulty. He was given treatment survivorship care plan for prostate cancer. Pradip Ulrich APRN.CNP Discussed documented in this encounter [facility] 04-19-2022 Note HNO ID: [id number] Author: Marie Romeo MD Service: ? Author Type: Physician Type: Progress Notes Filed: 04/25/2022 1:52 PM Note Text: Radiation Oncology - Follow Up Note PATIENT NAME: Braxton Stoddard PATIENT DIAGNOSIS: Prostate adenocarcinoma, initial PSA 4.6, biopsy Glendale score 3 + 3 = 6 (grade group 1), clinical stage T1c, N0, M0, stage I [cT1a-c/T2a, N0, M0, PSA <10, GG 1] (AJCC 8th ed.), s/p TRUS Random biopsy. RADIATION SUMMARY:, Prostate brachytherapy 08/20/2021 145 Gy using I-125 sources. 76 sources, 29.64 mCi 19 needles INTERVAL HISTORY: Doing well. Bladder function improving. No new problems. 10/09/21:Urinary function improving still with frequency and urgency. Denies hematuria. No fever. No perirectal or perineal pain. PSA HISTORY: PSA. (no units) Date Value 04/16/2022 0.26 10/05/2021: 3.8 ALLERGIES No Known Allergies keTORolac (TORADOL) 10 mg tablet Take 10 mg by mouth every 6 hours as needed. bisoprolol-hydroCHLOROthiazide (ZIAC) 2.5-6.25 mg per tablet Take 1 tablet by mouth once daily. REVIEW OF SYSTEMS: D/N = 4/2-4 Hematuria: none Dysuria: none Incontinence: none Urgency: moderate Catheter use: none Medications to aid urination: no - Total AUA Score: 11 Bowel movement frequency: 1/day Bowel movement quality: normal Blood per rectum: none PHYSICAL EXAM: BP 172/84 Pulse (!) 54 Temp 36.2 ?C (97.2 ?F) (Temporal) Resp 16 Wt 116 kg (255 lb 12.8 oz) SpO2 100% BMI (P) 35.68 kg/m? KPS: 100 General Appearance: Alert and oriented. No acute distress. Rectal exam is deferred. ASSESSMENT/PLAN: Prostate adenocarcinoma, initial PSA 4.6, biopsy Brady score 3 + 3 = 6 (grade group 1), clinical stage T1c, N0, M0, stage I [cT1a-c/T2a, N0, M0, PSA <10, GG 1] (AJCC 8th ed.), s/p TRUS Random biopsy. Patient overall doing well. He has had a good initial PSA response. No significant sequelae from brachytherapy treatment last year. Recommend continued close observation with serial PSA. Signed by: Marie Romeo MD cc: Barbara Archana German [address] [place] [address] [facility] 04-19-2022 History of Present illness Narrative Radiation Oncology - Follow Up Note PATIENT NAME: Braxton Stoddard PATIENT DIAGNOSIS: Prostate adenocarcinoma, initial PSA 4.6, biopsy Glendale score 3 + 3 = 6 (grade group 1), clinical stage T1c, N0, M0, stage I [cT1a-c/T2a, N0, M0, PSA <10, GG 1] (AJCC 8th ed.), s/p TRUS Random biopsy. RADIATION SUMMARY:, Prostate brachytherapy 08/20/2021 145 Gy using I-125 sources. 76 sources, 29.64 mCi 19 needles INTERVAL HISTORY: Doing well. Bladder function improving. No new problems. 10/09/21:Urinary function improving still with frequency and urgency. Denies hematuria. No fever. No perirectal or perineal pain. PSA HISTORY: PSA. (no units) Date Value 04/16/2022 0.26 10/05/2021: 3.8 ALLERGIES No Known Allergies keTORolac (TORADOL) 10 mg tablet Take 10 mg by mouth every 6 hours as needed. bisoprolol-hydroCHLOROthiazide (ZIAC) 2.5-6.25 mg per tablet Take 1 tablet by mouth once daily. REVIEW OF SYSTEMS: D/N = 4/2-4 Hematuria: none Dysuria: none Incontinence: none Urgency: moderate Catheter use: none Medications to aid urination: no - Total AUA Score: 11 Bowel movement frequency: 1/day Bowel movement quality: normal Blood per rectum: none PHYSICAL EXAM: BP 172/84 Pulse (!) 54 Temp 36.2 C (97.2 F) (Temporal) Resp 16 Wt 116 kg (255 lb 12.8 oz) SpO2 100% BMI (P) 35.68 kg/m KPS: 100 General Appearance: Alert and oriented. No acute distress. Rectal exam is deferred. ASSESSMENT/PLAN: Prostate adenocarcinoma, initial PSA 4.6, biopsy Brday score 3 + 3 = 6 (grade group 1), clinical stage T1c, N0, M0, stage I [cT1a-c/T2a, N0, M0, PSA <10, GG 1] (AJCC 8th ed.), s/p TRUS Random biopsy. Patient overall doing well. He has had a good initial PSA response. No significant sequelae from brachytherapy treatment last year. Recommend continued close observation with serial PSA. Signed by: Marie Romeo MD cc: Barbara Porter [address] [place] [phone] documented in this encounter [facility] 02-11-2022 Hospital Discharge instructions Patient Education 02/11/2022 14:01:00 Erectile Dysfunction Erectile Dysfunction Erectile dysfunction (ED) is the inability to get or keep an erection in order to have sexual intercourse. Erectile dysfunction may include: Inability to get an erection. Lack of enough hardness of the erection to allow penetration. Loss of the erection before sex is finished. What are the causes? This condition may be caused by: Certain medicines, such as: ?Pain relievers. ?Antihistamines. ?Antidepressants. ?Blood pressure medicines. ?Water pills (diuretics). ?Ulcer medicines. ?Muscle relaxants. ?Drugs. Excessive drinking. Psychological causes, such as: ?Anxiety. ?Depression. ?Sadness. ?Exhaustion. ?Performance fear. ?Stress. Physical causes, such as: ?Artery problems. This may include diabetes, smoking, liver disease, or atherosclerosis. ?High blood pressure. ?Hormonal problems, such as low testosterone. ?Obesity. ?Nerve problems. This may include back or pelvic injuries, diabetes mellitus, multiple sclerosis, or Parkinson disease. What are the signs or symptoms? Symptoms of this condition include: Inability to get an erection. Lack of enough hardness of the erection to allow penetration. Loss of the erection before sex is finished. Normal erections at some times, but with frequent unsatisfactory episodes. Low sexual satisfaction in either partner due to erection problems. A curved penis occurring with erection. The curve may cause pain or the penis may be too curved to allow for intercourse. Never having nighttime erections. How is this diagnosed? This condition is often diagnosed by: Performing a physical exam to find other diseases or specific problems with the penis. Asking you detailed questions about the problem. Performing blood tests to check for diabetes mellitus or to measure hormone levels. Performing other tests to check for underlying health conditions. Performing an ultrasound exam to check for scarring. Performing a test to check blood flow to the penis. Doing a sleep study at home to measure nighttime erections. How is this treated? This condition may be treated by: Medicine taken by mouth to help you achieve an erection (oral medicine). Hormone replacement therapy to replace low testosterone levels. Medicine that is injected into the penis. Your health care provider may instruct you how to give yourself these injections at home. Vacuum pump. This is a pump with a ring on it. The pump and ring are placed on the penis and used to create pressure that helps the penis become erect. Penile implant surgery. In this procedure, you may receive: ?An inflatable implant. This consists of cylinders, a pump, and a reservoir. The cylinders can be inflated with a fluid that helps to create an erection, and they can be deflated after intercourse. ?A semi-rigid implant. This consists of two silicone rubber rods. The rods provide some rigidity. They are also flexible, so the penis can both curve downward in its normal position and become straight for sexual intercourse. Blood vessel surgery, to improve blood flow to the penis. During this procedure, a blood vessel from a different part of the body is placed into the penis to allow blood to flow around (bypass) damaged or blocked blood vessels. Lifestyle changes, such as exercising more, losing weight, and quitting smoking. Follow these instructions at home: Medicines Take [id number] and prescription medicines only as told by your health care provider. Do not increase the dosage without first discussing it with your health care provider. If you are using self-injections, perform injections as directed by your health care provider. Make sure to avoid any veins that are on the surface of the penis. After giving an injection, apply pressure to the injection site for 5 minutes. General instructions Exercise regularly, as directed by your health care provider. Work with your health care provider to lose weight, if needed. Do not use any products that contain nicotine or tobacco, such as cigarettes and e-cigarettes. If you need help quitting, ask your health care provider. Before using a vacuum pump, read the instructions that come with the pump and discuss any questions with your health care provider. Keep all follow-up visits as told by your health care provider. This is important. Contact a health care provider if: You feel nauseous. You vomit. Get help right away if: You are taking oral or injectable medicines and you have an erection that lasts longer than 4 hours. If your health care provider is unavailable, go to the nearest emergency room for evaluation. An erection that lasts much longer than 4 hours can result in permanent damage to your penis. You have severe pain in your groin or abdomen. You develop redness or severe swelling of your penis. You have redness spreading up into your groin or lower abdomen. You are unable to urinate. You experience chest pain or a rapid heart beat (palpitations) after taking oral medicines. Summary Erectile dysfunction (ED) is the inability to get or keep an erection during sexual intercourse. This problem can usually be treated successfully. This condition is diagnosed based on a physical exam, your symptoms, and tests to determine the cause. Treatment varies depending on the cause, and may include medicines, hormone therapy, surgery, or vacuum pump. You may need follow-up visits to make sure that you are using your medicines or devices correctly. Get help right away if you are taking or injecting medicines and you have an erection that lasts longer than 4 hours. This information is not intended to replace advice given to you by your health care provider. Make sure you discuss any questions you have with your health care provider. Document Released: 02/14/2001 Document Revised: 01/30/2018 Document Reviewed: 03/05/2017 [employer] Patient Education 2020 Graceful [employer]. Follow Up Care 12/21/2021 12:49:39 With:SONNY CODY, Tomasz Quigley, URL Address: [facility] [address], [place] [id number]- When: Unknown [facility] 10-09-2021 History of Present illness Narrative Radiation Oncology - Follow Up Note PATIENT NAME: Braxton Stoddard PATIENT DIAGNOSIS: Prostate adenocarcinoma, initial PSA 4.6, biopsy Brady score 3 + 3 = 6 (grade group 1), clinical stage T1c, N0, M0, stage I [cT1a-c/T2a, N0, M0, PSA <10, GG 1] (AJCC 8th ed.), s/p TRUS Random biopsy. RADIATION SUMMARY:, Prostate brachytherapy 08/20/2021 145 Gy using I-125 sources. 76 sources, 29.64 mCi 19 needles INTERVAL HISTORY: Urinary function improving still with frequency and urgency. Denies hematuria. No fever. No perirectal or perineal pain. PSA HISTORY: 10/05/2021: 3.8 ALLERGIES No Known Allergies bisoprolol-hydroCHLOROthiazide (ZIAC) 2.5-6.25 mg per tablet Take 1 tablet by mouth once daily. keTORolac (TORADOL) 10 mg tablet Take 10 mg by mouth every 6 hours as needed. REVIEW OF SYSTEMS: D/N = 4/2-4 Hematuria: none Dysuria: none Incontinence: none Urgency: moderate Catheter use: none Medications to aid urination: no - Total AUA Score: 24 Bowel movement frequency: 1/day Bowel movement quality: normal Blood per rectum: none PHYSICAL EXAM: BP 152/94 Pulse (!) 56 Temp 36.7 C (98 F) Resp 18 Wt 111.1 kg (245 lb) SpO2 100% BMI (P) 34.17 kg/m KPS: 100 General Appearance: Alert and oriented. No acute distress. Rectal exam is deferred. ASSESSMENT/PLAN: Prostate adenocarcinoma, initial PSA 4.6, biopsy Brady score 3 + 3 = 6 (grade group 1), clinical stage T1c, N0, M0, stage I [cT1a-c/T2a, N0, M0, PSA <10, GG 1] (AJCC 8th ed.), s/p TRUS Random biopsy. Patient overall doing well. Post-implant CT shows excellent prostate coverage and appropriate normal tissue sparing. No change of modification in either the treatment or follow-up plan based on this. Recommend repeat PSA in 6 months. Patient has continued close follow-up with his urologist as well. Signed by: Marie Romeo MD cc: Barbara Porter [facility] [place] [address] documented in this encounter [facility] 10-09-2021 Nurse Note AUA= 24 documented in this encounter [facility] 09-26-2021 History of Present illness Narrative Patient: Braxton Stoddard Date:09/26/2021 [facility] Department of Radiation Oncology [facility] RADIATION ONCOLOGY POST SEED IMPLANT SIMULATION NOTE DATE OF SIMULATION: 09/26/2021 MACHINE: CT Simulator AREA:Prostate PATIENT POSITION: Supine. CONTRAST: None PROTOCOL: None CONCURRENT THERAPY: None FIXATION DEVICE: None PROCEDURE: Patient was simulated on the CT scanner and CT images of the patients pelvis obtained. ASSESSMENT/PLAN: Patient tolerated simulation procedure well. CT images were obtained on the CT simulator for the prostate post brachy therapy seed implant planning. Post planning for the permanent seed prostate brachy procedure will commence following simulation. Electronically Signed CHATO ROMEO M.D. 2:44 PM documented in this encounter [facility] 09-25-2021 Hospital Discharge instructions Patient Education 09/25/2021 10:21:18 Brachytherapy for Prostate Cancer, Care After Brachytherapy for Prostate Cancer, Care After This sheet gives you information about how to care for yourself after your procedure. Your health care provider may also give you more specific instructions. If you have problems or questions, contact your health care provider. What can I expect after the procedure? After the procedure, it is common to have: Trouble passing urine. Blood in the urine or semen. Constipation. Frequent feeling of an urgent need to urinate. Bruising, swelling, and tenderness of the area behind the scrotum (perineum). Bloating and gas. Fatigue. Burning or pain in the rectum. Problems getting or keeping an erection (erectile dysfunction). Nausea. Follow these instructions at home: Managing pain, stiffness, and swelling If directed, apply ice to the affected area: ?Put ice in a plastic bag. ?Place a towel between your skin and the bag. ?Leave the ice on for 20 minutes, 2 3 times a day. Try not to sit directly on the area behind the scrotum. A soft cushion can help with discomfort. Activity Do not drive for 24 hours if you were given a medicine to help you relax (sedative). Do not drive or use heavy machinery while taking prescription pain medicine. Rest as told by your health care provider. Most people can return to normal activities a few days or weeks after the procedure. Ask your health care provider what activities are safe for you. Eating and drinking Drink enough fluid to keep your urine clear or pale yellow. Eat a healthy, balanced diet. This includes lean proteins, whole grains, and plenty of fruits and vegetables. General instructions Take rncf-iih-[id number] and prescription medicines only as told by your health care provider. Keep all follow-up visits as told by your health care provider. This is important. You may still need additional treatment. Do not take baths, swim, or use a hot tub until your health care provider approves. Shower and wash the area behind the scrotum gently. Do not have sex for one week after the treatment, or until your health care provider approves. If you have permanent, low-dose brachytherapy implants: ?Limit close contact with children and women for 2 months or as told by your health care provider. This is important because of the radiation that is still active in the prostate. ?You may set off radioactive sensors, such as airport screenings. Ask your health care provider for a document that explains your treatment. ?You may be instructed to use a condom during sex for the first 2 months after low-dose brachytherapy. Contact a health care provider if: You have a fever or chills. You do not have a bowel movement for 3 4 days after the procedure. You have diarrhea for 3 4 days after the procedure. You develop any new symptoms, such as problems with urinating or erectile dysfunction. You have abdomen (abdominal) pain. You have more blood in your urine. Get help right away if: You cannot urinate. There is excessive bleeding from your rectum. You have unusual drainage coming from your rectum. You have severe pain in the treated area that does not go away with pain medicine. You have severe nausea or vomiting. Summary If you have permanent, low-dose brachytherapy implants, limit close contact with children and women for 2 months or as told by your health care provider. This is important because of the radiation that is still active in the prostate. Talk with your health care provider about your risk of brachytherapy side effects, such as erectile dysfunction or urinary problems. Your health care provider will be able to recommend possible treatment options. Keep all follow-up visits as told by your health care provider. This is important. You may need additional treatment. This information is not intended to replace advice given to you by your health care provider. Make sure you discuss any questions you have with your health care provider. Document Released: 03/22/2011 Document Revised: 01/30/2018 Document Reviewed: 03/21/2017 [employer] Patient Education 2020 Graceful Tables. Follow Up Care 08/30/2021 14:33:04 With:Ghulam Larkin MD, KAREN Marie Address: [facility] [address], [place] [phone] When:Within 4 Month(s) [facility] 09-11-2021 Nurse Note AUA= 24 documented in this encounter [facility] 09-11-2021 History of Present illness Narrative Radiation Oncology - Follow Up Note PATIENT NAME: Braxton Stoddard PATIENT DIAGNOSIS: Prostate adenocarcinoma, initial PSA 4.6, biopsy Brady score 3 + 3 = 6 (grade group 1), clinical stage T1c, N0, M0, stage I [cT1a-c/T2a, N0, M0, PSA <10, GG 1] (AJCC 8th ed.), s/p TRUS Random biopsy. RADIATION SUMMARY:, Prostate brachytherapy 08/20/2021 145 Gy using I-125 sources. 76 sources, 29.64 mCi 19 needles INTERVAL HISTORY: The patient presents for routine follow-up after recent prostate brachytherapy. Overall doing well. Does complain of slow stream but this is improving for him. Denies significant diarrhea. Denies abdominal pain or fever. PSA HISTORY: No results found for: PSA, PSAPER ALLERGIES No Known Allergies keTORolac (TORADOL) 10 mg tablet Take 10 mg by mouth every 6 hours as needed. bisoprolol-hydroCHLOROthiazide (ZIAC) 2.5-6.25 mg per tablet Take 1 tablet by mouth once daily. REVIEW OF SYSTEMS: D/N = 5-6 Hematuria: none Dysuria: none Incontinence: none Urgency: moderate Catheter use: none Medications to aid urination: no - Total AUA Score: 24 Bowel movement frequency: 1/day Bowel movement quality: normal Blood per rectum: none PHYSICAL EXAM: BP 123/88 Pulse (!) 59 Temp 36.1 C (96.9 F) Resp 16 Wt 109.8 kg (242 lb) SpO2 100% BMI (P) 33.75 kg/m KPS: 100 General Appearance: Alert and oriented. No acute distress. Rectal exam is deferred. Perineal area without ecchymosis tenderness or seroma. ASSESSMENT/PLAN: Prostate adenocarcinoma, initial PSA 4.6, biopsy [place] score 3 + 3 = 6 (grade group 1), clinical stage T1c, N0, M0, stage I [cT1a-c/T2a, N0, M0, PSA <10, GG 1] (AJCC 8th ed.), s/p TRUS Random biopsy. Patient overall doing well with improving post-implant urinary issues. No other new problems. Plan to have patient back in 2 weeks for post-implant CT, return for follow-up exam in 4 weeks. He continues close follow-up with his urologist as well. Signed by: Marie Romeo MD cc: Barbara Porter [address] [place] [id number] documented in this encounter [facility] 08-31-2021 History of Present illness Narrative Date: 08/28/2021 Facility: [facility] Procedure: prostate transperineal brachytherapy implant Sources: I-125 Anesthesia:general Urologist: Dr. Parmar This is an operative report supplement to Dr. Parmar's note. Prior the the implant patient underwent planning using transrectal ultrasound based. The planning including outline of prostate and planning margin around prostate to deliver 145 Gy using I-125 sources. It was determined 76 sources, for a total of 29.64 mCi was necessary using 19 needles. Prior to the procedure on the morning of the implant, patient identified by name and hospital ID bracelet. After anesthesia administered patient placed in dorsal-lithotomy position and ultrasound study done showing good correlation with planning images and excellent visualization of the gland. Implant was then carried out using transperineal technique with active ultrasound and fluoroscopic guidance. At the end of the case the treatment planning ultrasound computer showed captured seed located in expected position with appropriate target coverage, no extra seeds implanted. X-ray image showed good seed distribution and all 76 sources. Intraoperative dosimetry reviewed showing D90 of >104.83%, and excelent coverage of gland by the 100% IDL. After the cystoscopy physics performed survey with meter of patient, cystoscopy fluid, floor, trash, work table and general area. No excess activity seen, results documented. Sujey Romeo MD [facility] documented in this encounter [facility] 08-07-2021 History of Present illness Narrative UNIVERSAL PROTOCOL / SAFETY CHECKLIST Procedure to be Performed: prostate volume study Sign In: A Moment of CARE was completed. Personnel directly involved with the procedure wore the appropriate PPE (Personal Protective Equipment). Patient/Surrogate Stated/Verified: PATIENT VERIFIED(optional for EMERGENT procedures): Patient name, Date of , Relevant allergies and The intended procedure Time Out Communication: Intended patient and procedure match the source documents. Consent documented and matches the intended procedure. Sign Out: SIGN OUT (optional for EMERGENT procedures): No specimen collected. Marie Romeo MD documented in this encounter [facility] 08-07-2021 History of Present illness Narrative BRAXTON STODDARD [id number] 08/07/2021 [facility] Department of Radiation Oncology [facility] RADIATION ONCOLOGY SIMULATION NOTE DATE OF SIMULATION: 08/07/2021 MACHINE: [employer] Focus 500 Diagnosis: 185 (Prostate Gland) AREA:Prostate PATIENT POSITION: Supine CONTRAST: None PROTOCOL: None CONCURRENT THERAPY: None FIXATION DEVICE: UTS Stabilization device by [employer]. PROCEDURE: Patient was simulated in exaggerated dorsal lithotomy position. Serial images of the prostate were acquired using TRUS and reconstructed in 3D space. These images were imported into [employer] Prostate planning system where a plan was generated. ASSESSMENT/PLAN: Patient tolerated simulation procedure well. Electronically Signed Chato Romeo M.D. / 21:55 PM documented in this encounter [facility] 07-24-2021 History of Present illness Narrative Radiation Oncology - Prostate Cancer New Patient/Consult Note PATIENT NAME: Braxton Stoddard PATIENT REQUESTING PROVIDER: Dr. Parmar DIAGNOSIS: 61 year old male with prostate adenocarcinoma, initial PSA 4.6, biopsy Brady score 3 + 3 = 6 (grade group 1), clinical stage T1c, N0, M0, stage I [cT1a-c/T2a, N0, M0, PSA <10, GG 1] (AJCC 8th ed.), s/p TRUS Random biopsy. HPI: 61 year old male with prostate adenocarcinoma who presents for an opinion regarding the role of radiation therapy in the management of the patient's disease. Final recommendations will be communicated back to the requesting physician by way of the shared medical record, or letter to requesting physician via US mail. The patient was diagnosed with prostate cancer and comes in today to discuss treatment options. Patient presented with elevated PSA of 4.6 on 03/09/21. Previous PSA 07/25/17 1.44. Clinical exam revealed no nodule. Prostate biopsy on June 07, 2021 revealed: 46.9 cc gland, without hypoechogenic areas. Brady 6 left lateral apex involving 1 core Total # of positive biopsy cores: 1 Total # of biopsy cores sampled: 12 Greatest % cancer in any single core: Less than 10% Staging Studies: None Previous Treatment for Prostate Cancer: None Genomic Testing: None The patient reports the following pertinent history: Urinary frequency (D/N): 4-6/3 Dysuria: No Incontinence: 1- No pads Hematuria: No - Total AUA Score: 16 Bowel Movement Frequency: 1/day Bowel Movement Quality: Normal Blood per Rectum: No Last Colonoscopy: na Baseline Erectile Function: 1- Normal Androgen Deprivation: No Prior Radiation Therapy, Collagen Vascular Disease, or Inflammatory Bowel Disease: No Currently on Anticoagulation: No History of Hip Replacement: No History of Prior TURP: No ALLERGIES No Known Allergies bisoprolol-hydroCHLOROthiazide (ZIAC) 2.5-6.25 mg per tablet Take 1 tablet by mouth once daily. PAST MEDICAL HISTORY Diagnosis Date HTN (hypertension) PAST SURGICAL HISTORY Procedure Laterality Date APPENDECTOMY PAST SURGICAL HISTORY OF Right right ring finger-due to a work accident REPAIR OF KNEE Right FAMILY HISTORY Problem Relation Age of Onset Liver Cancer Maternal Grandfather Lung Cancer Paternal Grandfather Social History Tobacco Use Smoking status: Never Smoker Smokeless tobacco: Former User Substance Use Topics Alcohol use: Yes Comment: weekly-socially Drug use: Never REVIEW OF SYSTEMS: GENERAL: feeling well without fatigue, no recent change in weight RESPIRATORY: no cough, no wheezing or shortness of breath CARDIOVASCULAR: no chest pain, no palpitations MUSCULOSKELETAL: denies any painful or swollen joints, no muscle aches SKIN: no rash NEURO: no numbness or paresthesias and no weakness of the extremities As noted in HPI PHYSICAL EXAM: VS: BP (P) 149/87 Pulse (!) (P) 53 Temp (P) 36.4 C (97.6 F) Resp (P) 16 Ht (P) 180.3 cm (5' 11 ) Wt (P) 111.1 kg (245 lb) SpO2 (P) 99% BMI (P) 34.17 kg/m KARNOFSKY PERFORMANCE STATUS: 100 General Appearance: Alert and oriented. No acute distress. HEENT: NCAT. Sclera anicteric. PERRL. EOMI. Neck: Normal ROM. No palpable cervical or supraclavicular adenopathy. Chest: No respiratory distress. Lungs clear to auscultation bilaterally. Heart: Regular rate and rhythm. Abdomen: Soft. Nontender. Nondistended. Musculoskeletal: No edema. Normal ROM in extremities. No bone or spine tenderness. Neuro: Speech fluent. Gait normal. No focal deficits. Skin: No rashes noted Lymphatics: No palpable lymphadenopathy. GENITOURINARY: Deferred exam RECTAL: Deferred exam RADIOLOGY/LABORATORY DATA: see HPI ASSESSMENT/PLAN: Prostate adenocarcinoma, initial PSA 4.6, biopsy Brady score 3 + 3 = 6 (grade group 1), clinical stage T1c, N0, M0, stage I [cT1a-c/T2a, N0, M0, PSA <10, GG 1] (AJCC 8th ed.), s/p TRUS Random biopsy. Prostate cancer (C61), 2019 NCCN Risk Group: Very Low Risk Group Clinical State: Localized Cancer - New Diagnosis Patient presents with a localized low risk adenocarcinoma of the prostate. Overall performance status excellent. I discussed with patient potential options including active surveillance which would be very appropriate option for his presentation. We spent considerable time discussing this is an option. Patient is not interested or comfortable in this approach. We discussed both surgery and radiation for definitive approach and patient does not want to pursue surgery and is interested in radiation approach. We discussed both external beam and brachytherapy. Patient is a very appropriate candidate for brachytherapy. He does want to pursue this option. I would recommend a dose of 145 Gy using I-125 sources. Risks benefits rationale of treatment discussed at length. Acute and potential long-term complications discussed. Radiation safety issues also discussed. Patient expressed an understanding of the information presented. A volume study and implant will be coordinated with Dr. Parmar s office. Signed by: Marie Romeo MD cc: Barbara Porter [address] [place] [address] Rohan Parmar JR, MD [address] [facility] [id number] documented in this encounter [facility] 07-24-2021 Nurse Note AUA= 16 documented in this encounter [facility] 07-10-2021 Hospital Discharge instructions Patient Education 07/10/2021 11:40:21 Prostate Cancer Prostate Cancer The prostate is a walnut-sized gland that is involved in the production of semen. It is located below a man's bladder, in front of the rectum. Prostate cancer is the abnormal growth of cells in the prostate gland. What are the causes? The exact cause of this condition is not known. What increases the risk? This condition is more likely to develop in men who: Are older than age 65. Are -[place]. Are obese. Have a family history of prostate cancer. Have a family history of breast cancer. What are the signs or symptoms? Symptoms of this condition include: A need to urinate often. Weak or interrupted flow of urine. Trouble starting or stopping urination. Inability to urinate. Pain or burning during urination. Painful ejaculation. Blood in urine or semen. Persistent pain or discomfort in the lower back, lower abdomen, hips, or upper thighs. Trouble getting an erection. Trouble emptying the bladder all the way. How is this diagnosed? This condition can be diagnosed with: A digital rectal exam. For this exam, a health care provider inserts a gloved finger into the rectum to feel the prostate gland. A blood test called a prostate-specific antigen (PSA) test. An imaging test called transrectal ultrasonography. A procedure in which a sample of tissue is taken from the prostate and examined under a microscope (prostate biopsy). Once the condition is diagnosed, tests will be done to determine how far the cancer has spread. This is called staging the cancer. Staging may involve imaging tests, such as: A bone scan. A CT scan. A PET scan. An MRI. The stages of prostate cancer are as follows: Stage I. At this stage, the cancer is found in the prostate only. The cancer is not visible on imaging tests and it is usually found by accident, such as during a prostate surgery. Stage II. At this stage, the cancer is more advanced than it is in stage I, but the cancer has not spread outside the prostate. Stage III. At this stage, the cancer has spread beyond the outer layer of the prostate to nearby tissues. The cancer may be found in the seminal vesicles, which are near the bladder and the prostate. Stage IV. At this stage, the cancer has spread other parts of the body, such as the lymph nodes, bones, bladder, rectum, liver, or lungs. How is this treated? Treatment for this condition depends on several factors, including the stage of the cancer, your age, personal preferences, and your overall health. Talk with your health care provider about treatment options that are recommended for you. Common treatments include: Observation for early stage prostate cancer (active surveillance). This involves having exams, blood tests, and in some cases, more biopsies. For some men, this is the only treatment needed. Surgery. Types of surgeries include: ?Open surgery. In this surgery, a larger incision is made to remove the prostate. ?A laparoscopic prostatectomy. This is a surgery to remove the prostate and lymph nodes through several, small incisions. It is often referred to as a minimally invasive surgery. ?A robotic prostatectomy. This is a surgery to remove the prostate and lymph nodes with the help of a robotic arm that is controlled by a computer. ?Orchiectomy. This is a surgery to remove the testicles. ?Cryosurgery. This is a surgery to freeze and destroy cancer cells. Radiation treatment. Types of radiation treatment include: ?External beam radiation. This type aims beams of radiation from outside the body at the prostate to destroy cancerous cells. ?Brachytherapy. This type uses radioactive needles, seeds, wires, or tubes that are implanted into the prostate gland. Like external beam radiation, brachytherapy destroys cancerous cells. An advantage is that this type of radiation limits the damage to surrounding tissue and has fewer side effects. High-intensity, focused ultrasonography. This treatment destroys cancer cells by delivering high-energy ultrasound waves to the cancerous cells. Chemotherapy medicines. This treatment kills cancer cells or stops them from multiplying. Hormone treatment. This treatment involves taking medicines that act on one of the male hormones (testosterone): ?By stopping your body from producing testosterone. ?By blocking testosterone from reaching cancer cells. Follow these instructions at home: Take [id number] and prescription medicines only as told by your health care provider. Maintain a healthy diet. Get plenty of sleep. Consider joining a support group for men who have prostate cancer. Meeting with a support group may help you learn to cope with the stress of having cancer. Keep all follow-up visits as told by your health care provider. This is important. If you have to go to the hospital, notify your cancer specialist (oncologist). Treatment for prostate cancer may affect sexual function. Continue to have intimate moments with your partner. This may include touching, holding, hugging, and caressing. Contact a health care provider if: You have trouble urinating. You have blood in your urine. You have pain in your hips, back, or chest. Get help right away if: You have weakness or numbness in your legs. You cannot control urination or your bowel movements (incontinence). You have trouble breathing. You have sudden chest pain. You have chills or a fever. Summary The prostate is a walnut-sized gland that is involved in the production of semen. It is located below a man's bladder, in front of the rectum. Prostate cancer is the abnormal growth of cells in the prostate gland. Treatment for this condition depends on several factors, including the stage of the cancer, your age, personal preferences, and your overall health. Talk with your health care provider about treatment options that are recommended for you. Consider joining a support group for men who have prostate cancer. Meeting with a support group may help you learn to cope with the stress of having cancer. This information is not intended to replace advice given to you by your health care provider. Make sure you discuss any questions you have with your health care provider. Document Released: 02/17/2006 Document Revised: 01/30/2018 Document Reviewed: 10/28/2016 [employer] Patient Education 2020 [employer]. Follow Up Care 06/26/2021 12:04:04 With:Ghulam Larkin MD, Rohan Rivera, URO Address: [facility] [address] , [place] [address]- When: Unknown Comments:will see us after seed implant procedure [facility] 06-26-2021 Hospital Discharge instructions Patient Education 06/26/2021 11:58:45 Prostate Cancer Prostate Cancer The prostate is a walnut-sized gland that is involved in the production of semen. It is located below a man's bladder, in front of the rectum. Prostate cancer is the abnormal growth of cells in the prostate gland. What are the causes? The exact cause of this condition is not known. What increases the risk? This condition is more likely to develop in men who: Are older than age 65. Are -[place]. Are obese. Have a family history of prostate cancer. Have a family history of breast cancer. What are the signs or symptoms? Symptoms of this condition include: A need to urinate often. Weak or interrupted flow of urine. Trouble starting or stopping urination. Inability to urinate. Pain or burning during urination. Painful ejaculation. Blood in urine or semen. Persistent pain or discomfort in the lower back, lower abdomen, hips, or upper thighs. Trouble getting an erection. Trouble emptying the bladder all the way. How is this diagnosed? This condition can be diagnosed with: A digital rectal exam. For this exam, a health care provider inserts a gloved finger into the rectum to feel the prostate gland. A blood test called a prostate-specific antigen (PSA) test. An imaging test called transrectal ultrasonography. A procedure in which a sample of tissue is taken from the prostate and examined under a microscope (prostate biopsy). Once the condition is diagnosed, tests will be done to determine how far the cancer has spread. This is called staging the cancer. Staging may involve imaging tests, such as: A bone scan. A CT scan. A PET scan. An MRI. The stages of prostate cancer are as follows: Stage I. At this stage, the cancer is found in the prostate only. The cancer is not visible on imaging tests and it is usually found by accident, such as during a prostate surgery. Stage II. At this stage, the cancer is more advanced than it is in stage I, but the cancer has not spread outside the prostate. Stage III. At this stage, the cancer has spread beyond the outer layer of the prostate to nearby tissues. The cancer may be found in the seminal vesicles, which are near the bladder and the prostate. Stage IV. At this stage, the cancer has spread other parts of the body, such as the lymph nodes, bones, bladder, rectum, liver, or lungs. How is this treated? Treatment for this condition depends on several factors, including the stage of the cancer, your age, personal preferences, and your overall health. Talk with your health care provider about treatment options that are recommended for you. Common treatments include: Observation for early stage prostate cancer (active surveillance). This involves having exams, blood tests, and in some cases, more biopsies. For some men, this is the only treatment needed. Surgery. Types of surgeries include: ?Open surgery. In this surgery, a larger incision is made to remove the prostate. ?A laparoscopic prostatectomy. This is a surgery to remove the prostate and lymph nodes through several, small incisions. It is often referred to as a minimally invasive surgery. ?A robotic prostatectomy. This is a surgery to remove the prostate and lymph nodes with the help of a robotic arm that is controlled by a computer. ?Orchiectomy. This is a surgery to remove the testicles. ?Cryosurgery. This is a surgery to freeze and destroy cancer cells. Radiation treatment. Types of radiation treatment include: ?External beam radiation. This type aims beams of radiation from outside the body at the prostate to destroy cancerous cells. ?Brachytherapy. This type uses radioactive needles, seeds, wires, or tubes that are implanted into the prostate gland. Like external beam radiation, brachytherapy destroys cancerous cells. An advantage is that this type of radiation limits the damage to surrounding tissue and has fewer side effects. High-intensity, focused ultrasonography. This treatment destroys cancer cells by delivering high-energy ultrasound waves to the cancerous cells. Chemotherapy medicines. This treatment kills cancer cells or stops them from multiplying. Hormone treatment. This treatment involves taking medicines that act on one of the male hormones (testosterone): ?By stopping your body from producing testosterone. ?By blocking testosterone from reaching cancer cells. Follow these instructions at home: Take [id number] and prescription medicines only as told by your health care provider. Maintain a healthy diet. Get plenty of sleep. Consider joining a support group for men who have prostate cancer. Meeting with a support group may help you learn to cope with the stress of having cancer. Keep all follow-up visits as told by your health care provider. This is important. If you have to go to the hospital, notify your cancer specialist (oncologist). Treatment for prostate cancer may affect sexual function. Continue to have intimate moments with your partner. This may include touching, holding, hugging, and caressing. Contact a health care provider if: You have trouble urinating. You have blood in your urine. You have pain in your hips, back, or chest. Get help right away if: You have weakness or numbness in your legs. You cannot control urination or your bowel movements (incontinence). You have trouble breathing. You have sudden chest pain. You have chills or a fever. Summary The prostate is a walnut-sized gland that is involved in the production of semen. It is located below a man's bladder, in front of the rectum. Prostate cancer is the abnormal growth of cells in the prostate gland. Treatment for this condition depends on several factors, including the stage of the cancer, your age, personal preferences, and your overall health. Talk with your health care provider about treatment options that are recommended for you. Consider joining a support group for men who have prostate cancer. Meeting with a support group may help you learn to cope with the stress of having cancer. This information is not intended to replace advice given to you by your health care provider. Make sure you discuss any questions you have with your health care provider. Document Released: 02/17/2006 Document Revised: 01/30/2018 Document Reviewed: 10/28/2016 [employer] Patient Education 2020 [employer] Tables. Follow Up Care 06/08/2021 08:32:10 With:Ghulam Larkin MD, Rohan Rivera, URO Address: [facility] [address], [place] [address]- When:07/17/2021 [facility] 06-07-2021 Hospital Discharge instructions Patient Education 06/07/2021 12:28:04 [facility] - Transrectal Ultrasound of the Prostate with US guided biopsy Discharge Instructions (Custom) Transrectal Ultrasound of the Prostate with US guided biopsy Even though there are no visible incisions, multiple prostate biopsies have been taken through the rectum and you need to follow some instructions to minimize the risks of bleeding. You may see some blood in your urine and stool for up to 1 week (and blood in the semen for several months) Diet -You may resume your normal diet, but you may want to avoid alcohol, carbonated drinks, caffeine, and spicy foods, which may increase the irritation from the surgery. -Drink plenty of water to keep the urine clear. Activity -You should limit any physical activity for about 48 hours -No heavy lifting or straining (10 pound limit) -No driving a car and limit long car rides for 2 days -No strenuous exercise -No sexual intercourse until this is discussed with your doctor Bowels -Try to keep your bowel movements soft to minimize straining to have a bowel movement. -You may use a stool softener or over the counter laxative if needed -Difficult bowel movement may lead to straining and bleeding from the prostate Medications -You may resume your home medications unless instructed otherwise -Hold aspirin, ibuprofen, Coumadin (warfarin) and other blood thinners for about two days or until there is no active bleeding unless otherwise instructed -Finish the antibiotic which you have already started Things to watch for which would require an Emergency Room visit or call 911: (this is not a complete list) -Persistent or heavy bleeding or blood clots from the rectum or in the urine -Inability to urinate -Fever over 101.5 degrees Fahrenheit, with or without chills -Severe drug reactions with itching, hives or rash -Tenderness or swelling of the calves, chest pain, or shortness of breath Please call the office to arrange for your post-operative appointment in 1-2 weeks [phone] or [phone] 06/07/2021 12:28:04 Post Op Patient Instructions - FT (CUSTOM) Follow Up Care 05/17/2021 15:25:20 With:Rohan Parmar Address: [facility] [address], [place] [address]- Business (1) When:2 to 4 weeks Comments:Review pathology report. [facility] Evaluation + Plan note No data available for this section [facility] Evaluation + Plan note Future Appointments Appointment Date:07/10/2021 10:15:00 AM Scheduled Provider:Rohan Parmar Jr., MD Location:[facility] Appointment Type:URO Office Visit [facility] Evaluation + Plan note Future Appointments Appointment Date:01/08/2022 08:00:00 AM Scheduled Provider:Rohan Parmar Jr., MD Location:[facility] Appointment Type:URO Office Visit [facility] Evaluation + Plan note Future Appointments Appointment Date:08/12/2022 10:15:00 AM Scheduled Provider:Tomasz ESCOBAR MD Location:[facility] Appointment Type:URO Office Visit Diagnostic Tests PendingPSA Total 02/11/[address] [facility] Evaluation + Plan note Future Appointments Appointment Date:04/16/2024 09:30:00 AM Scheduled Provider:Tomasz ESCOBAR MD Location:[facility] Appointment Type:URO Office Visit Diagnostic Tests PendingPSA Total 04/14/[address] [facility] Evaluation note Diagnosis Malignant neoplasm of prostate (HCC)- [facility] ne[facility] of prostate (H[facility])- Primary [facility] of [facility] Malignant neoplasm of prostate (HCC)- Primary [facility] of [facility] Diagnosis Prostate cancer (HCC) Malignant [facility]oplasm of prostate [facility] Diagnosis Malignant neoplasm of prostate (HCC)- Primary Malignant neoplasm of prostate [facility] Diagnosis Malignant neoplasm of prostate (HCC)- Primary Malignant neoplasm of [facility] No data available for this section [facility] Summary Purpose Family History No Family History Records Found No data available for this section No Family History Records FoundNo Family History Records Found Advance Directives No Advanced Directives Records FoundNo Advanced Directives Records FoundNo Advanced Directives Records Found Additional Source Comments Source Comments (unrecognize d section and content) In the event this informatio n is protected by the Federal Confidentiality of Alcohol and Drug Abuse Patient Records regulations: The Federal rules restrict any use of the information to criminally investigate or prosecute any alcohol or drug abuse patient.[facility] the event this information is protected by the Federal Confidentiality of Alcohol and Drug Abuse Patient Records regulations: The Federal rules restrict any use of the information to criminally investigate or prosecute any alcohol or drug abuse patient.[facility] the event this information is protected by the Federal Confidentiality of Alcohol and Drug Abuse Patient Records regulations: The Federal rules restrict any use of the information to criminally investigate or prosecute any alcohol or drug abuse patient.[facility] the event this information is protected by the Federal Confidentiality of Alcohol and Drug Abuse Patient Records regulations: The Federal rules restrict any use of the information to criminally investigate or prosecute any alcohol or drug abuse patient.[facility] the event this information is protected by the Federal Confidentiality of Alcohol and Drug Abuse Patient Records regulations: The Federal rules restrict any use of the information to criminally investigate or prosecute any alcohol or drug abuse patient.[facility] the event this information is protected by the Federal Confidentiality of Alcohol and Drug Abuse Patient Records regulations: The Federal rules restrict any use of the information to criminally investigate or prosecute any alcohol or drug abuse patient.[facility] the event this information is protected by the Federal Confidentiality of Alcohol and Drug Abuse Patient Records regulations: The Federal rules restrict any use of the information to criminally investigate or prosecute any alcohol or drug abuse patient.[facility] the event this information is protected by the Federal Confidentiality of Alcohol and Drug Abuse Patient Records regulations: The Federal rules restrict any use of the information to criminally investigate or prosecute any alcohol or drug abuse patient.[facility] Hospital[facility] the event this information is protected by the Federal Confidentiality of Alcohol and Drug Abuse Patient Records regulations: The Federal rules restrict any use of the information to criminally investigate or prosecute any alcohol or drug abuse patient.[facility] the event this information is protected by the Federal Confidentiality of Alcohol and Drug Abuse Patient Records regulations: The Federal rules restrict any use of the information to criminally investigate or prosecute any alcohol or drug abuse patient.[facility] Hospital[facility] the event this information is protected by the Federal Confidentiality of Alcohol and Drug Abuse Patient Records regulations: The Federal rules restrict any use of the information to criminally investigate or prosecute any alcohol or drug abuse patient.[facility] Hospital[facility] the event this information is protected by the Federal Confidentiality of Alcohol and Drug Abuse Patient Records regulations: The Federal rules restrict any use of the information to criminally investigate or prosecute any alcohol or drug abuse patient.[facility] Reason for Visit (unrecogniz ed section and content) Reason Comments Consult Reason Comments Volume Study Reason Comments Prostate Cancer Reason Comments Prostate Cancer 6 month follow up Care Teams (unrecognized sec tion and content) Quality Consultant Relationship Specialty Start Date End Date Barbara Porter MD [address] [place] [address] PCP - General Family Practice 07/18/21 Rohan Parmar Jr. [address] [place] [address] Referring Urology 07/18/21 Quality Consultant Relationship Specialty Start Date End Date Barbara Porter MD [address] [place] [address] PCP - General Family Practice 07/18/21 Rohan Parmar Jr. [address] [place] [address] Referring Urology 07/18/21 Quality Consultant Relationship Specialty Start Date End Date Barbara Porter MD [address] [facility] [place] [address] PCP - General Family Practice 07/18/21 Rohan Parmar Jr. [address] [place] [address] Referring Urology 07/18/21 Quality Consultant Relationship Specialty Start Date End Date Barbara Porter MD [address] [place] [place] [address] PCP - General Family Practice 07/18/21 Rohan Parmar Jr. [address] [place] [address] Referring Urology 07/18/21 Quality Consultant Relationship Specialty Start Date End Date Barbara Porter MD [address] [facility] [place] [address] PCP - General Family Practice 07/18/21 Rohan Parmar Jr. [address] [place] [address] Referring Urology 07/18/21 Quality Consultant Relationship Specialty Start Date End Date Barbara Porter MD [address] [place] [address] PCP - General Family Medicine 07/18/21 Rohan Parmar Jr. [address] [place] [address] Referring Urology 07/18/21 Quality Consultant Relationship Specialty Start Date End Date Barbara Porter MD [address] [place] [address] PCP - General Family Medicine 07/18/21 Rohan Parmar Jr. [address] [place] [address] Referring Urology 07/18/21 Quality Consultant Relationship Specialty Start Date End Date Barbara Porter MD PCP - General Family Medicine 07/18/21 Rohan Parmar Jr. [address] [place] [address] Referring Urology 07/18/21 (unrecognized sect ion and content) No Status Records FoundNo Status Records FoundNo Status Records Found INFORMATION SOURCE (unrecogn ized section and content) DATE CREATED AUTHOR 04/20/2022 Neftali P[place] [facility] DATE CREATED AUTHOR AUTHOR'S ORGANIZ ATION 04/15/2023 [facility] DATE CREATED AUTHOR AUTHOR'S ORGANIZ ATION 04/18/2023 [facility] FOR RECORDS PERTAINING TO PATIENTS WHO ARE OR HAVE BEEN ENROLLED IN A CHEMICAL DEPENDENCY/SUBSTANCEABUSE PROGRAM, SOME INFORMATION MAY BE OMITTED. This clinical summary was aggregated from multiple sources. Caution should be exercised in using it in the provision of clinical care. This summary normalizes information from multiple sources, and as a consequence, information in this document may materially change the coding, format and clinical context of patient data. In addition, data may be omitted in some cases. CLINICAL DECISIONS SHOULD BE BASED ON THE PRIMARY CLINICAL RECORDS. [employer] provides no warranty or guarantee of the accuracy or completeness of information in this document.
[2023-08-08 10:12] LABS: Basophils Percent Auto 0.2 % (0.2-2.0); Eosinophils Absolute Auto 0.1 10^3/uL (0.0-0.7); Eosinophils Percent Auto 2.5 % (0.9-7.0); Hematocrit 39.9 % (42.0-54.0); Hemoglobin 13.9 g/dL (14.0-18.0); Immature Granulocytes Abs Auto 0.01 10^3/uL (0.00-0.03); Immature Granulocytes Pct Auto 0.2 % (0.0-0.5); Lymphocytes Absolute Auto 1.1 10^3/uL (1.2-3.8); Lymphocytes Percent Auto 25.6 % (20.5-60.0); Mean Corpuscular HGB Conc 34.8 g/dL (29.9-35.2); Mean Corpuscular Hemoglobin 33.1 pg (25.9-34.0); Mean Platelet Volume 10.6 fL (9.5-13.5); Monocytes Absolute Auto 0.5 10^3/uL (0.3-0.8); Monocytes Percent Auto 11.9 % (1.7-12.0); Neutrophils Absolute Auto 2.7 10^3/uL (1.4-6.5); Neutrophils Percent Auto 59.6 % (43.0-75.0); Platelet Count 188 10^3/uL (150-450); Red Cell Distribution Width 11.9 % (11.0-15.0); White Blood Count 4.5 10^3/uL (4.0-11.0)
[2023-08-08 11:50] LABS: Alanine Aminotransferase 26 U/L (16-63); Albumin Level 3.7 g/dL (3.4-5.0); Alkaline Phosphatase 55 U/L (46-116); Anion Gap 10.1; Aspartate Amino Transferase 17 U/L (15-37); BUN Creatinine Ratio 16.7; Bilirubin Total 0.7 mg/dL (0.2-1.0); Calcium 8.9 mg/dL (8.5-10.1); Carbon Dioxide 30.1 mmol/L (21.0-32.0); Chloride 99 mmol/L (98-107); Chol HDL Ratio 2.8; Cholesterol 235 mg/dL (<=200); Estimated GFR (African America >60 (>=60); Estimated GFR (Non-African Ame >60 (>=60); Free T3 2.96 pg/mL (2.18-3.98); Globulin 3.6 g/dL; Glucose 109 mg/dL (74-106); HDL Cholesterol 83 mg/dL (40-60); Potassium 4.2 mmol/L (3.5-5.1); Sodium 135 mmol/L (136-145); Thyroid Stimulating Hormone 0.904 uIU/mL (0.358-3.740); Total Protein 7.3 g/dL (6.4-8.2); Triglycerides 36 mg/dL (<=150); VLDL CHOLESTEROL 7.2 mg/dL
[2023-08-08 12:43] LABS: Estimated Average Glucose 108 mg/dL; Glycohemoglobin A1C 5.4 % (4.5-6.2)
[2023-08-09 04:08] LABS: PSA, Free <0.02 ng/mL; Prostate Specific Ag 0.1 ng/mL (0.0-4.0)
[2023-08-10 12:11] LABS: Insulin 10.6 uIU/mL (2.6-24.9)
== END 2023-08-08 09:45 | disposition home or self-care (01) ==
LOC: LAB 09:45
PROVIDERS: PCP Family Medicine; Visit Provider Family Medicine
DX: Z00.00 Encounter for general adult medical examination without abnormal findings (principal)
CPT/HCPCS: 36415; 80053; 80061; 83036; 83525; 84153; 84154; 84436; 84443; 84481; 85025

== ENCOUNTER 2023-08-26 07:26 | Outpatient (OUT) | payer BC, SELFPAY ==
--- NOTE | 2023-08-26 07:15 | NM_ITS ---
Patient Name: IKER SALINAS MR#: [id number] : 1960 Exam Date: 08/26/2023 Ordering Doctor: DR Steven Ayers . RADIOLOGY REPORT PROCEDURE: NM DEIDRE PERF SPECT REST STR COMPARISON: None. INDICATIONS: DYSPNEA TECHNIQUE: Exam Description: Stress/Rest one day protocol gated SPECT Rest Imagin.0 mCi Tc-99m Cardiolite IV on 08/26/2023 Stress Imaging 31.0 mCi Tc-99m Cardiolite IV on 08/26/2023 Exercise Protocol: Samuel Heart Rate (bpm): Rest: 56 Max: 136 PMHR: 86 Blood Pressure: Rest: 152/92 Max: 204/98 Exercise Time: Minutes: 9 Seconds: 26 Stage Reached: Stage: 4 Mets 11.5 Symptoms: Rest and peak stress ECG findings were abnormal and the exercise portion of the study was abnormal per attending physician Dr. Murray due to EKG changes. For more details please see separate cardiac stress test report. FINDINGS: QUALITY OF STUDY: Good. PERFUSION DEFECT: None. LOCATION: N/A SIZE: N/A. SEVERITY: N/A. TYPE: N/A. WALL MOTION: Normal. LV SIZE: Enlarged; EDV 172 mL. TID / TCD: None; 1.0 LVEF: Abnormal. Calculated EF 55%. SUMMARY: Myocardial perfusion imaging study has ABNORMAL findings. CONCLUSION: 1. No reversible ischemia 2. Dilated left ventricle, EDV 172 milliliters 3. Borderline low left ventricular ejection fraction of 55% 4. Abnormal exercise test secondary to EKG changes Dictated by: James Cisse MD on 08/26/2023 at 14:28 Approved by: James Cisse MD on 08/26/2023 at 14:44
--- OUTSIDE RECORDS SUMMARY | 2023-08-26 07:29 | XMS_ITS | CCD ---
Author Organization [facility] Informat ion Partnership [facility] Care Team Providers Care Supervisor Fiber Locking Name Role Phone BARBARA PORTER Primary Care Physician Barbara Porter MD Primary Care Provider Rohan Parmar Jr. Unavailable Barbara Porter MD Primary Care Provider Rohan Parmar Jr. Unavailable Barbara Porter MD Primary Care Provider Rohan Parmar Jr. Unavailable GHULAM GILL, DR ROHAN Rivera Admitting [...] PORTER, DR BARBARA Sheets Primary Care Unavailable [place], DR CATERINA Seals Consulting Unavailable RASHMI, DR MACKENZIE Francis Consulting Unavailable GHULAM GILL, DR ROHAN Rivera Consulting Unavailtoñito sheets AGUBOSIMSANTINO Consulting Unavailable PERLITA HOPSON Consulting Unavailable ANGELICA ARGUETA Consulting Unavailable RASHMI, DR MACKENZIE Francis Admitting Unavailable RASHMI, DR MACKENZIE Francis Attending Unavailable MOISES, DR BARBARA Sheets Primary Care Unavailable RASHMI, DR MACKENZIE Francis Consulting Unavailable RASHMI, DR MACKENZIE Francis Admitting Unavailable RASHMI, DR MACKENZIE Francis Attending Unavailable MOISES, DR BARBARA Sheets Consulting Unavailable MOISES, DR BARBARA Sheets Primary Care Unavailable RASHMI, DR MACKENZIE Francis Consulting Unavailable MOISES, DR BARBARA Sheets Primary Care Unavailable SREEKANTH, DR LING Admitting Unavailable SREEKANTH, DR LING Attending Unavailable GUTIERREZ MILLS Consulting Unavailable CATERINA CHAVEZ Consulting Unavailable MOISES, DR BARBARA Sheets Attending Unavailable MOISES, DR BARBARA Sheets Consulting Unavailable MOISES, DR BARBARA Sheets Primary Care Unavailable PORTER, DR BARBARA Sheets Admitting Unavailable MOISES, DR BARBARA Sheets Primary Care Unavailable PORTER, DR BARBARA Sheets Attending Unavailable MOISES, DR BARBARA Sheets Consulting Unavailable MOISES, DR BARBARA Sheets Admitting Unavailable Steven Ayers Primary Care Physician [phone] Barbara Porter MD Primary Care Provider Marie ROMEO Referring Unavailable ENGMarie HALLMAN Attending Unavailable MOISES, BARBARA DONG Primary Care Unavailable ENGMarie HALLMAN Referring Unavailable Marie ROMEO Attending Unavailable MOISES, BARBARA DONG Primary Care Unavailable ENGMarie HALLMANIP Referring Unavailable PRADIP ULRICH Attending Unavailable BARBARA PORTER Primary Care Unavailable Marie ROMEO Attending Unavailable MOISES, BARBARA DONG Primary Care Unavailable Marie ROMEO Referring Unavailable Tomasz ESCOBAR Attending Unavailable Tomasz ESCOBAR Attending Unavailable Tomasz ESCOBAR Attending Unavailable Allergies Allergy Classification Reported Allergen(s) Allergy Type Date of Onset Reaction(s) Facility (8 sources) Penicillin; Translations: [penicillin] Drug Allergy father gets really sick, in the [facility] Medications Current Medications Medication Drug Class(es) Dates Sig (Normalized) Sig (Original) 24 hr alfuzosin hydrochloride 10 mg extended release oral tablet (5 sources) alpha-Adrenergic Susana Start: 03-06-2022 take 1 tablet by mouth every other day alfuzosin 10 mg ER Tab 10 mg = 1 tab(s), Oral, Every other day, # 15 tab(s), Refills(s) 0, Pharmacy: [facility]/pharmacy #[id number], 182, cm, 04/14/23 12:26:00 EST, Height/Length Dosing, 108, kg, 04/14/23 12:26:00 EST, Weight Dosing Start Date: 04/14/23 Status: Ordered Start: 03-06-2022 take 1 tablet by isna th once daily, then take 1 tablet by mouth every twenty-four hours alfuzosin SR (UROXATRAL) 10 mg 24 hr tablet Take 10 mg by mouth once daily. 0 03/06/2022 Active Start: 02-11-2022 take 1 tablet by mouth once da alecia alfuzosin 10 mg ER Tab 10 mg = 1 tab(s), Oral, Daily, # 30 tab(s), Refills(s) 6, Pharmacy: [facility]/pharmacy #[id number], 182, cm, 02/11/22 13:09:00 EST, Height/Length [...] day, # 60 tab(s), Refills(s) 1, [id number] 182, cm, 09/25/21 9:56:00 EDT, Height/Length [...] TAKE 1 TABLET BY MOUTH EVERY DAY, [id number], 182, cm, 08/12/22 10:27:00 EDT, Height/Length Dosing, [...] Drug, Cyclooxygenase Inhibitor Start: 08-29-19 End: 04-19-19 23 take 1 tablet by mouth every six [...] Test Name Value Interpretation Reference Range Facil ity Auth for Release of Medical Recordson 08-08-2023 Auth for Release of Medical Records [id number] 0TIFF Normal [facility] CNOVon 04-16-2023 CNOV Office Visit (RADTSA ) RICHIBRAXTON MATTHEW ([id number]) 1960 M Date Time Provider Department 04/16/23 10:15 AM Marie ROMEO RADDANEA During your visit today, we recorded the [...] ASSESSMENT/PLAN: Prostate adenocarcinoma, initial PSA 4.6, biopsy Pinetop score 3 + 3 = 6 (grade [...] by: Marie Romeo MD cc: Barbara Porter [address] [place] [address] Janelle Ch LPN 04/16/2023 10:28 AM Signed AUA= 7 Referring Provider: Marie ROMEO [[id number]] Allergies As of Date: 04/16/2023 (No Known Allergies) Date Reviewed: 04/16/2023 Reviewed by: Janelle Ch LPN - Fully Assessed Reason for Visit: Prostate Cancer [590] Primary Visit Diagnosis:Malignant neoplasm of prostate (HCC) [C61] Order(s):PSA (OUTSIDE) [[id number]] Order #: [id number] PSA/PROSTSPECAG DIAG [SQPSA] Order #: [id number] FUTURE Prescriptions as of 04/16/2023 - alfuzosin [...] Status:Closed by Marie ROMEO on 04/16/23 Normal [facility] Ambulatory Visit Summaryon 0 04-14-2023 Ambulatory Visit Summary BRAXTON STODDARD :1960 Visit Date:04/14/2023 Ambulatory Visit Instructions Your Diagnosis Prostate cancer 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 Normal [facility] Patient Educationon 04-14-19 Patient Education Oncology Prostate Cancer Screening Prostate [...] Where to find more information ? The [place] [employer]: www.cancer.org ? [place] [employer]: www.auanet.org Contact a health care [...] adds flu (more content not included)... Normal [facility] Urology Office/Clinic Noteon 04-14-2023 Urology Office/Clinic Note [...] 0.26 01/29/23 - 0.13 TRUS/bx 06/07/21 - Pinetop score 6 (3+3) in one core. S/p [...] [facility] [address], [place] [address] [phone] Additional Instructions: 1 yr w/ PSA Patient Education Prostate Cancer Screening I, Rosalina Mosher, personally scribed for Dr. Escobar on 04/14/2023 13:21:51. . Documentation recorded by the scribe, Rosalina Mosher, accurately reflects the services(s) I performed and decisions made by me. Authenticated by Dr. Escobar on 04/14/2023 13:27:00. Problem List/Past Medical History [...] Protein Urine Dipstick: Negative (04/14/23 12:23:00) Specific [place] Urine Dipstick: 1.010 (04/14/23 12:23:00 (more content not included)... Normal [facility] Comment on above: Result Comment: Elec tronically Signed By: SONNY CODY, Tomasz Garcia.br\Date and Time Signed: 04/14/23 13:27 EST\.br\Electronically Co-Signed By: Rosalina Mosher\.radha\Date and Time Co-Signed: 04/14/23 13:22 EST Lab Reportson 01-29-2023 Lab Reports [id number] 0TIFF Normal [facility] CNOVon 10-15-2022 CNOV Office Visit (RADTSA ) BRAXTON STODDARD ([id number]) 1960 M Date Time Provider Department 10/15/22 [...] ASSESSMENT/PLAN: Prostate adenocarcinoma, initial PSA 4.6, biopsy Pinetop score 3 + 3 = 6 (grade group 1), clinical stage T1c, N0, M0, stage I [cT1a-c/T2a, N0, M0, PSA <10, GG 1] (AJCC 8th ed.), s/p TRUS Random biopsy. Patient overall doing well. PSA continues to decline. No significant posttreatment related problems. Recommend continued close observation with serial PSA. Signed by: Marie Romeo MD cc: Barbara Porter [facility] [place] [address] Referring Provider: Marei ROMEO [[id number]] Allergies As of Date: 10/15/2022 (No Known Allergies) Date Reviewed: 10/15/2022 Reviewed by: Alicia Reveles RN - Fully Assessed Reason for Visit: Prostate Cancer [590] Primary Visit Diagnosis:Malignant neoplasm of prostate (HCC) [C61] Order(s):PSA (OUTSIDE) [[id number]] Order #: [id number] PSA/PROSTSPECAG DIAG [SQPSA] Order #: [id number] FUTURE Prescriptions as of 10/15/2022 - alfuzosin [...] for Encounter Date Provider Department Center 10/15/2022 [id number] Encounter Status:Closed by Marie ROMEO on 10/15/22 [facility] Ambulatory Visit Summaryon 0 08-12-2022 Ambulatory Visit Summary BRAXTON STODDARD :1960 Visit Date:08/12/2022 Ambulatory Visit Instructions Your Diagnosis Prostate cancer BPH with urinary obstruction Erectile dysfunction after prostate brachytherapy Tests Performed Urnls Dip Stick Auto w/o Microscopy POC 87228 Your Care Team Attending Physician - Tomasz ESCOBAR MD Primary Care Physician - MOISES CODY, BARBARA Sheets This Is Your Medications [...] CODY, Tomasz Quigley Where: [facility] [place] [facility] Patient Educationon 08-13-19 Patient Education Urology Erectile [...] these instructions at home: Medicines ? Take feup-sqk-ypbxrsh and prescription medicines only as told by [...] include cig (more content not included)... Normal [facility] Urology Office/Clinic Noteon 08-12-2022 Urology Office/Clinic Note [...] Tomasz Quigley, URL [facility] [address] , [place] [address]- Additional Instructions: 6 mos PSA Patient Education [...] Smokeless Tobacco Use: (more content not included)... Normal [facility] Comment on above: Result Comment: Elec tronically Signed By: Tomasz ESCOBAR MD\.br\Date and Time Signed: 08/12/22 11:03 EDT\.br\Electronically Co-Signed By: Mary Ann Chilel.br\Date and Time Co-Signed: 08/12/22 11:01 EDT CNOVon 04-19-2022 CNOV Office Visit (RADTSA ) BRAXTON [id number]) 1960 M Date Time Provider Department 04/19/22 [...] ASSESSMENT/PLAN: Prostate adenocarcinoma, initial PSA 4.6, biopsy Pinetop score 3 + 3 = 6 (grade [...] by: Marie Romeo MD cc: Barbara Porter [address] [place] [id number] Referring Provider: Marie ROMEO [[id number]] Allergies As of Date: 04/19/2022 (No Known Allergies) Date Reviewed: 04/19/2022 Reviewed by: Pradip Ulrich APRN.OCULAR CARE AIDE - Fully Assessed Reason for Visit: Prostate Cancer [590] Cmt: 6 month follow up Primary Visit Diagnosis:Malignant neoplasm of prostate (HCC) [C61] Order(s):PSA (OUTSIDE) [[id number]] Order #: [id number] PSA/PROSTSPECAG DIAG [SQPSA] Order #: [id number] FUTURE Prescriptions as of 04/25/2022 - alfuzosin [...] for Encounter Date Provider Department Center 04/19/2022 [id number] ROMEO Encounter Status:Closed by Marie ROMEO on 04/25/22 [facility] (SP) Office ([facility]) BRAXTON STODDARD ([id number]) 1960 M Date Time Provider Department 04/19/22 10:30 AM PRADIP ULRICH During your visit today, we recorded the following information about you: Pradip Ulrich APRN.OCULAR CARE AIDE 04/19/2022 12:42 PM Signed Braxton Epstein Richi was seen and examined by Dr. Romeo today. He denies any problems with bowel movements. He is urinating well without any pain, burning or difficulty. He was given treatment survivorship care plan for prostate cancer. Pradip Ulrich APRN.OCULAR CARE AIDE Discussed Referring Provider: Marie ROMEO [[id number]] Allergies As of Date: 04/19/2022 (No Known Allergies) Date Reviewed: 04/19/2022 Reviewed by: Pradip Ulrich APRN.OCULAR CARE AIDE - Fully Assessed Visit Diagnosis:Prostate cancer (HCC) [...] Encounter Status:Closed by PRADIP ULRICH on 04/19/22 Normal [facility] XR HAND RT MIN 3Von 12-18-19 XR HAND RT MIN 3V EXAM: XR [...] CATERINA CHAVEZ Date: 2021-12-17 18:59 Normal [facility] XR PELVIS 1_2 VIEWSon 2021 XR PELVIS 1_2 VIEWS EXAMINATION: XR PELVIS 1_2 VIEWS HISTORY: History of prostate seed brachytherapy COMPARISON: No relevant comparison available. FINDINGS: 1 image. 18 seconds of fluoroscopy Single image demonstrates prostate seed implantation. Iodinated contrast with urinary bladder IMPRESSION: Image from prostate seed implantation Electronically authenticated by: CATERINA SANDHU Date: 2021-08-29 08:06 Normal [facility] Covid-19 PCR (CVDTBH)on 08-02 SARS-CoV-2 (COVID-19) RNA SILVA+probe Ql (Unsp spec) Not detected Normal NOT DETECTED [facility] Comment on above: Result Comment: This test is not yet approved or cleared by the [place] FDA. When there are no FDA-approved or cleared tests available, and other criteria are met, FDA can make tests available under an emergency access mechanism called an Emergency Use Authorization (EUA). The EUA for this test is supported by the Typing Checker of Health and Human Service's (HHS's) declaration [...] consistent with SARS-CoV-2. Performed By: #### C VDTBH #### [facility] [address] [place] [address] Lisandra Cisneros PROF CHEM 8 (BAS METB)on Anion gap [Moles/Vol] 10.7 mmol/L Normal [facility] [place] [facility] Comment on above: Performed By: #### B MP #### [facility] [address] [address] [address] Lisandra Cisneros Calcium [Mass/Vol] 9.0 mg/dL Normal 8.5-10.1 [facility] Comment on above: Performed By: #### B MP #### [facility] [address] [address] [address] Lisandra Cisneros Chloride [Moles/Vol] 98 mmol/L Normal 98-107 [facility] Comment on above: Performed By: #### B MP #### [facility] [address] [address] [address] Lisandra Cisneros CO2 [Moles/Vol] 27.7 mmol/L Normal 21.0-32.0 [facility] Comment on above: Performed By: #### B MP #### [facility] [address] [place] [address] Dr. Lisandra Cisneros Creatinine [Mass/Vol] 0.87 mg/dL Normal 0.70-1.30 [facility] Comment on above: Performed By: #### B MP #### [facility] [address] [address] [address] Lisandra Cisneros EGFR-AF TAIWANESE >60 Normal >=60 [facility] Comment on above: Performed By: #### B MP #### [facility] [address] [address] [address] Lisandra Cisneros EGFR-NON AF TAIWANESE >60 Normal >=60 [facility] Comment on above: Performed By: #### B MP #### [facility] [address] [address] [address] Lisandra Cisneros Glucose [Mass/Vol] 101 mg/dL Normal 74-106 [facility] Comment on above: Performed By: #### B MP #### [facility] [address] [address] [address] Lisandra Cisneros Potassium [Moles/Vol] 4.4 mmol/L Normal 3.5-5.1 [facility] Comment on above: Performed By: #### B MP #### [facility] [address] [address] [address] Lisandra Cisneros Sodium [Moles/Vol] 132 mmol/L Critically low 136-145 [facility] Comment on above: Performed By: #### B MP #### [facility] [address] [place], [place] [address] Dr. Lisandra Cisneros Urea nitrogen [Mass/Vol] 13.0 mg/dL Normal 7.0-18.0 [facility] [place] [facility] Comment on above: Performed By: #### B MP #### [facility] [address] [place], [place] [address] Dr. Lisandra Cisneros Urea nitrogen/Creatinin e [Mass ratio] 14.9 mg/mg Normal [facility] [place] [facility] Comment on above: Performed By: #### B MP #### [facility] [address] [place], [place] [address] Dr. Lisandra Cisneros Vital Signs Date Time Vital Sign Value Performing Clinician Facility 04-16-2023 10:13-0500 Body temperature 97.5 [degF] INGRID Romeo MD Work Phone: [facility] 04-16-2023 10:13-0500 Body weight 111.7 kg INGRID Romeo MD Work Phone: [facility] 04-16-2023 10:13-0500 Diastolic blood pressure 86 mm[Hg] INGRID Romeo MD Work Phone: [facility] 04-16-2023 10:13-0500 Heart rate 52 /min INGRID Romeo MD Work Phone: [facility] 04-16-2023 10:13-0500 Respiratory rate 18 /min INGRID Romeo MD Work Phone: [facility] 04-16-2023 10:13-0500 SaO2% (BldA) [Mass fraction] 99 % INGRID Romeo MD Work Phone: [facility] 04-16-2023 10:13-0500 Systolic blood pressure 132 mm[Hg] INGRID Romeo MD Work Phone: [facility] 04-19-2022 10:12-0500 Body temperature 97.2 [degF] INGRID Romeo MD Work Phone: [facility] 04-19-2022 10:12-0500 Body weight 116.03 kg INGRID Romeo MD Work Phone: [facility] 04-19-2022 10:12-0500 Diastolic blood pressure 84 mm[Hg] INGRID Romeo MD Work Phone: [facility] 04-19-2022 10:12-0500 Heart rate 54 /min INGRID Romeo MD Work Phone: [facility] 04-19-2022 10:12-0500 Respiratory rate 16 /min INGRID Romeo MD Work Phone: [facility] 04-19-2022 10:12-0500 SaO2% (BldA) [Mass fraction] 100 % INGRID Romeo MD Work Phone: [facility] 04-19-2022 10:12-0500 Systolic blood pressure 172 mm[Hg] INGRID Romeo MD Work Phone: [facility] 02-11-2022 13:08-0500 Blood Pressure Location Tomasz ESCOBAR [facility] 02-11-2022 13:08-0500 Diastolic blood pressure 101 mm[Hg] Tomasz ESCOBAR [facility] 02-11-2022 13:08-0500 Heart rate 66 /min Tomasz ESCOBAR [facility] 02-11-2022 13:08-0500 Systolic blood pressure 137 mm[Hg] Tomasz ESCOBAR [facility] 10-09-2021 14:56-0400 Body temperature 98.01 [degF] INGRDI Romeo MD Work Phone: [facility] 10-09-2021 14:56-0400 Body weight 111.13 kg INGRID Romeo MD Work Phone: [facility] 10-09-2021 14:56-0400 Diastolic blood pressure 94 mm[Hg] INGRID Romeo MD Work Phone: [facility] 10-09-2021 14:56-0400 Heart rate 56 /min INGRID Romeo MD Work Phone: [facility] 10-09-2021 14:56-0400 Respiratory rate 18 /min INGRID Romeo MD Work Phone: [facility] 10-09-2021 14:56-0400 SaO2% (BldA) [Mass fraction] 100 % INGRID Romeo MD Work Phone: [facility] 10-09-2021 14:56-0400 Systolic blood pressure 152 mm[Hg] INGRID Romeo MD Work Phone: [facility] 09-25-2021 09:54-0400 Blood Pressure Location Rohan Parmar Jr. [facility] 09-25-2021 09:54-0400 Diastolic blood pressure 99 mm[Hg] Rohan Parmar Jr. [facility] 09-25-2021 09:54-0400 Heart rate 52 /min Rohan Parmar Jr. [facility] 09-25-2021 09:54-0400 Respiratory rate 16 /min Rohan Parmar Jr. [facility] 09-25-2021 09:54-0400 Systolic blood pressure 178 mm[Hg] Rohan Parmar Jr. [facility] 09-11-2021 14:00-0400 Body temperature 96.91 [degF] INGRID Romeo MD Work Phone: [facility] 09-11-2021 14:00-0400 Body weight 109.77 kg INGRID Romeo MD Work Phone: [facility] 09-11-2021 14:00-0400 Diastolic blood pressure 88 mm[Hg] INGRID Romeo MD Work Phone: [facility] 09-11-2021 14:00-0400 Heart rate 59 /min INGRID Romeo MD Work Phone: [facility] 09-11-2021 14:00-0400 Respiratory rate 16 /min INGRID Romeo MD Work Phone: [facility] 09-11-2021 14:00-0400 SaO2% (BldA) [Mass fraction] 100 % INGRID Romeo MD Work Phone: [facility] 09-11-2021 14:00-0400 Systolic blood pressure 123 mm[Hg] INGRID Romeo MD Work Phone: [facility] 07-10-2021 11:07-0400 Diastolic blood pressure 92 mm[Hg] Rohan Parmar Jr. [facility] 07-10-2021 11:07-0400 Mean blood pressure 108 mm[Hg] Rohan Parmar Jr. [facility] 07-10-2021 11:07-0400 Systolic blood pressure 140 mm[Hg] Rohan Parmar Jr. [facility] 07-10-2021 10:57-0400 Blood Pressure Location Rohan Parmar Jr. [facility] 07-10-2021 10:57-0400 Diastolic blood pressure 96 mm[Hg] Rohan Parmar Jr. [facility] 07-10-2021 10:57-0400 Heart rate 78 /min Rohan Parmar Jr. [facility] 07-10-2021 10:57-0400 Respiratory rate 16 /min Rohan Parmar Jr. [facility] 07-10-2021 10:57-0400 Systolic blood pressure 142 mm[Hg] Rohan Parmar Jr. [facility] 06-26-2021 11:17-0400 Blood Pressure Location Rohan Parmar Jr. [facility] 06-26-2021 11:17-0400 Diastolic blood pressure 117 mm[Hg] Rohan Parmar Jr. [facility] 06-26-2021 11:17-0400 Heart rate 71 /min Rohan Parmar Jr. [facility] 06-26-2021 11:17-0400 Respiratory rate 16 /min Rohan Parmar Jr. [facility] 06-26-2021 11:17-0400 Systolic blood pressure 171 mm[Hg] Rohan Parmar Jr. [facility] 06-07-2021 13:50-0400 Blood Pressure Location Rohan Parmar Jr. [facility] 06-07-2021 13:50-0400 BP/Pulse Patient Position Rohan Parmar Jr. [facility] 06-07-2021 13:50-0400 Diastolic blood pressure 98 mm[Hg] Rohan Parmar Jr. [facility] 06-07-2021 13:50-0400 Heart rate 56 /min Rohan Parmar Jr. [facility] 06-07-2021 13:50-0400 Mean blood pressure 120 mm[Hg] Rohan Parmar Jr. [facility] 06-07-2021 13:50-0400 Respiratory rate 18 /min Rohan Parmar Jr. [facility] 06-07-2021 13:50-0400 SaO2% (BldA) [Mass fraction] 100 % Rohan Parmar Jr. [facility] 06-07-2021 13:50-0400 Systolic blood pressure 163 mm[Hg] Rohan Parmar Jr. [facility] 06-07-2021 12:15-0400 Blood Pressure Location Rohan Parmar Jr. [facility] 06-07-2021 12:15-0400 Diastolic blood pressure 68 mm[Hg] Rohan Parmar Jr. [facility] 06-07-2021 12:15-0400 Heart rate 51 /min Rohan Parmar Jr. [facility] 06-07-2021 12:15-0400 Respiratory rate 16 /min Rohan Parmar Jr. [facility] 06-07-2021 12:15-0400 SaO2% (BldA) [Mass fraction] 96 % Rohan Parmar Jr. [facility] 06-07-2021 12:15-0400 Systolic blood pressure 126 mm[Hg] Rohan Parmar Jr. [facility] 06-07-2021 12:10-0400 Body temperature 97.52 [degF] Rohan Parmar Jr. [facility] 06-07-2021 12:10-0400 Diastolic blood pressure 90 mm[Hg] Rohan Parmar Jr. [facility] 06-07-2021 12:10-0400 Heart rate 52 /min Rohan Parmar Jr. [facility] 06-07-2021 12:10-0400 Respiratory rate 10 /min Rohan Parmar Jr. [facility] 06-07-2021 12:10-0400 SaO2% (BldA) [Mass fraction] 94 % Rohan Parmar Jr. [facility] 06-07-2021 12:10-0400 SaO2% (BldA) [Mass fraction] 95 % Rohan Parmar Jr. [facility] 06-07-2021 12:10-0400 Systolic blood pressure 139 mm[Hg] Rohan Parmar Jr. [facility] 06-07-2021 11:55-0400 Respiratory rate 9 /min Rohan Parmar Jr. [facility] 06-07-2021 11:50-0400 Respiratory rate 10 /min Rohan Parmar Jr. [facility] 06-07-2021 11:41-0400 Body temperature 97.88 [degF] Rohan Parmar Jr. [facility] 06-07-2021 11:30-0400 Respiratory rate 17 /min Rohandale Parmar Jr. [facility] 06-07-2021 09:41-0400 Blood Pressure Location Rohan Parmar Jr. [facility] 06-07-2021 09:40-0400 Body temperature 98.6 [degF] Rohandale Parmar Jr. [facility] 06-07-2021 09:40-0400 Heart rate 72 /min Rohandale Parmar Jr. [facility] Encounters Encounter Date Encounter Type Care Provider Facility Start: 04-16-2024 ambulatory Tomasz Matthews ty:[facility] [place] Start: 04-16-2023 End: 04-16-2023 ambulatory Marie ROMEO Facility:[facility] Start: 04-16-2023 End: 04-16-2023 Patient encounter procedure Marie Romeo MD Work Phone: Radiation Oncology Comment on above: Malignant neoplasm o f prostate (HCC) (Primary Dx) Start: 04-14-2023 End: 04-14-2023 ambulatory Tomasz ESCOBAR Facility:[facility] Start: 04-14-2023 End: 04-14-2023 Patient encounter procedure Tomasz ESCOBAR [facility] Start: 10-15-2022 End: 10-16-2022 ambulatory Marie ROMEO Facility:[facility] Start: 08-12-2022 End: 08-12-2022 ambulatory Tomasz ESCOBAR Facility:[facility] Start: 04-19-2022 End: 04-19-2022 ambulatory Marie ROMEO Facility:[facility] Start: 04-19-2022 End: 04-19-2022 ambulatory Pradip Ulrich APRN.CNP Work Phone: Hematology/Oncology Comment on above: Prostate cancer (HCC ) Start: 04-19-2022 End: 04-19-2022 Patient encounter procedure Pradip Serg LARA Work Phone: [place] Comment on above: Malignant neoplasm o f prostate (HCC) (Primary Dx) Start: 04-16-2022 End: 04-17-[address] MACKENZIE ROMEO Facility:[facility] Start: 02-12-2022 End: 02-13-[address] BARBARA PORTER Facility:[facility] Start: 02-11-2022 End: 02-11-2022 Patient encounter procedure Tomasz Dann ESCOBAR [facility] Start: 01-16-2022 End: 01-17-[address] BARBARA [...] procedure Rohan Parmar Jr. [facility] Start: 09-11-2021 End: 09-11-2021 Patient encounter procedure [...] preprocedural laboratory examination DR ROHAN PARMAR JR [facility] Start: 08-23-2021 End: 08-24-[address] ROHAN PARMAR JR Facility:[facility] Start: 08-23-2021 End: 08-24-2021 Encounter for preprocedural laboratory examination DR ROHAN PARMAR JR Facility:[facility] Start: 08-17-2021 Encounter for preprocedural cardiovascular examination DR ROHAN PARMAR JR [facility] Start: 08-17-2021 Encounter for preprocedural laboratory examination DR ROHAN PARMAR JR [facility] Start: 08-16-2021 End: 08-17-[address] ROHAN [...] Start: 08-03-2021 [facility] Start: 08-02-2021 [facility] Start: 07-24-2021 End: 07-24-2021 Patient encounter procedure Marie Romeo MD Work Phone: Radiation Oncology Comment on above: Malignant neoplasm o f prostate (HCC) (Primary Dx) Start: 07-10-2021 End: 07-10-2021 Patient encounter procedure Rohan Parmar Jr. [facility] Start: 06-26-2021 End: 06-26-2021 Patient encounter procedure Rohan Parmar Jr. [facility] Start: 06-07-2021 End: 06-07-2021 Admission to same day surgery center Rohan Parmar Jr. [facility] Procedures Date Procedure Procedure Detail Performing Clinician Start: 01-29-2023 PSA screening [facility] Provi bob Start: 04-16-2022 End: 04-16-2022 PSA screening [facility] Provider Comment on above: Performed By: #### P SAD #### [facility] [address] [place] [address] Dr. Lisandra Cisneros Start: 10-05-[address] ROHAN PARMAR JR Comment on above: Performed By: #### P SAD #### [facility] [address] [place] [address] Dr. Lisandra Cisneros Start: 08-28-2021 Brachytherapy Tomasz W MAYKEL Start: 06-07-2021 Biopsy of prostate Uma Parmar Jr. Start: 03-03-2015 Dilation of esophagus D hien Parmar Jr. Appendectomy Rohan Islas Colonoscopy Rohan Islas Plan of Treatment Date Care Activity Detail Author Start: 12-18-2031 Urine microalbumin profile DTaP,Tdap,Td Vaccine (2 - Tdap) [facility] Start: 01-30-2028 Prostate specific antigen measurement Prostate Cancer Screening Discussion [facility] Start: 04-16-2027 PROSTATE CANCER SCREENING DISCUSSION PROSTATE CANCER SCREENING DISCUSSION [facility] Start: 10-05-2026 PROSTATE CANCER SCREENING DISCUSSION PROSTATE CANCER SCREENING DISCUSSION [facility] Start: 10-15-2023 End: 01-14-2024 Prostate specific Ag [Mass/volume] in Serum or Plasma PSA/PROSTSPECAG DIAG Lab Routine Malignant neoplasm of prostate (HCC) Expected: 10/15/2023, Expires: 01/14/2024 [facility] Work Phone: Comment on above: Expected: 10/15/2023 , Expires: 01/14/2024 Start: 03-03-2023 Depression Assessment Depression Ass essment [facility] Start: 11-01-2022 Influenza vaccination Influenza Vacc ine (#1) [facility] Start: 10-17-2022 End: 12-17-2022 Prostate specific Ag [Mass/volume] in Serum or Plasma PSA/PROSTSPECAG DIAG Lab Routine Malignant neoplasm of prostate (HCC) Expected: 10/17/2022, Expires: 12/17/2022 [facility] Work Phone: Comment on above: Expected: 10/17/2022 , Expires: 12/17/2022 Start: 04-11-2022 End: 06-11-2022 Prostate specific Ag [Mass/volume] in Serum or Plasma PSA/PROSTSPECAG DIAG Lab Routine Malignant neoplasm of prostate (HCC) Expected: 04/11/2022, Expires: 06/11/2022 [facility] Work Phone: Comment on above: Expected: 04/11/2022 , Expires: 06/11/2022 Start: 03-03-2022 DEPRESSION ASSESSMENT DEPRESSION ASS [facility] Start: 11-01-2021 Influenza vaccination [facility] Start: 10-12-2021 End: 12-12-2021 Prostate specific Ag [Mass/volume] in Serum or Plasma PSA/PROSTSPECAG DIAG Lab Routine Malignant neoplasm of prostate (HCC) Expected: 10/12/2021, Expires: 12/12/2021 [facility] Work Phone: Comment on above: Expected: 10/12/2021 , Expires: 12/12/2021 Start: 2021 RSV Vaccine (1 - 1-d ose 60+ series) RSV Vaccine (1 - 1-dose 60+ series) [facility] Start: 2016 PROSTATE CANCER SCREENING DISCUSSION PROSTATE CANCER SCREENING DISCUSSION [facility] Start: 2011 SHINGRIX VACCINE (1 of 2) SHINGRIX VACCINE (1 of 2) [facility] Start: 2006 COLOGUARD (FIT-DNA) COLOGUARD (FIT-D NA) [facility] Start: 2006 Colonoscopy COLONOSCOPY [facility] Start: 2006 COLORECTAL CANCER SCREENING COLORECTAL CANCER SCREENING [facility] Start: [address] COLONOGRAPHY [facility] Start: 2006 DIABETES SCREEN DIABETES SCREEN [facility] Start: 2006 Diabetes Screening Diabetes Screenin g [facility] Start: 2006 FECAL OCCULT BLOOD FECAL OCCULT BLOO D [facility] Start: 2006 Screening for malign ant neoplasm of colon [facility] Start: 2006 SIGMOIDOSCOPY SIGMOIDOSCOPY [facility] Start: 1996 Lipid panel Lipid Screening [facility] Start: 1996 LIPID SCREEN LIPID SCREEN [facility] Start: 1980 SHINGRIX VACCINE (1 of 2) SHINGRIX VACCINE (1 of 2) [facility] Start: 1980 Urine microalbumin profile DTAP,TDAP,TD (1 - Tdap) [facility] Start: 1979 HEPATITIS C SCREENING HEPATITIS C [facility] [place] Start: 1979 Hepatitis C screening Hepatitis C [facility] Start: 1979 HIV SCREENING HIV SCREENING [facility] Start: 1979 HIV screening HIV Screening [facility] Start: 1973 Adult depression screening assessment DEPRESSION SCREENING [facility] Start: 1967 PNEUMOCOCCAL (1 - PCV) PNEUMOCOCCAL (1 - PCV) [facility] Start: 1966 COVID-19 VACCINE (#1) COVID-19 VACCI NE (#1) [facility] Start: 1961 COVID-19 VACCINE (#1) COVID-19 VACCI NE (#1) [facility] Payers Date Payer Category Payer Unknown [id number] 2021 Unknown MMO MMO [employer] [id number] 2021-Present [phone] [address] [place] [address] PPO [id number] 2021 Unknown [id number] 2019 Unknown [id number] 1961 Unknown [id number] 1961 Unknown [id number] 1961 Unknown [id number] 1961 Unknown [id number] 1961 Unknown [id number] 1961 Unknown [id number] 1961 Unknown [id number] 1961 Unknown [id number] 1961 Unknown [id number] 1961 Unknown [id number] 1961 Unknown [id number] Social History Date Type Detail Facility Tobacco smoking status Never smoker [facility] Start: 10-15-2022 End: 04-16-2023 Sex Assigned At Male [facility] Start: 06-26-2021 End: 10-09-2021 Tobacco smoking status Never smoked tobacco (finding) [facility] Start: 07-24-2021 End: 10-09-2021 Tobacco use and exposure Former smokeless tobacco user [facility] Start: 07-24-2021 End: 04-16-2023 Alcohol intake Current drinker of alcohol (finding) [facility] Start: 07-24-2021 History SDOH Alcohol Comment weekly-socially [facility] Start: 1960 Sex Assigned At Male [facility] Start: 07-14-2021 End: 10-09-2021 Exposure to SARS-CoV-2 (event) Not sure [facility] Tobacco smoking status Never [facility] Start: 10-15-2022 End: 04-16-2023 History of Social function [facility] Start: 07-18-2021 Gender identity Identifies as male gender (finding) [facility] Start: 07-18-2021 Sexual orientation Heterosexual (fin ding) [facility] Functional Status Date Assessment Result Facility 04-14-2023 Functional Status N/A [facility] 02-11-2022 Functional Status N/A [facility] 09-25-2021 Functional Status N/A [facility] Clinical Notes 06-07-2021 to 04-16-2023 Janelle Ch LPN - 04/16/2023 10:14 AM Marie Fish MD - 04/16/2023 10:02 AM Melyssa Ulrich APRN.CNP - 04/19/2022 12:39 PM ESTG Chato Romeo MD - 04/19/2022 10:03 AM EST Note Date & Type Note Facility 04-16-2023 Note HNO ID: [id number] Author: Marie ROMEO MD Service: ? Author Type: Physician Type: Progress Notes Filed: 04/16/2023 10:28 Note Text: Radiation Oncology - Follow Up Note PATIENT NAME: Braxton Stoddard PATIENT DIAGNOSIS: Prostate adenocarcinoma, initial PSA 4.6, biopsy Pinetop score 3 + 3 = 6 (grade [...] well on an as-needed basis. Signed by: Marei Romeo MD cc: Barbara Porter [address] [place] [id number] [facility] 04-16-2023 Nurse Note AUA= 7 documented in this encounter [facility] 04-16-2023 History of Present illness Narrative Radiation Oncology - Follow Up Note PATIENT NAME: Braxton Stoddard PATIENT DIAGNOSIS: Prostate adenocarcinoma, initial PSA 4.6, biopsy Pinetop score 3 + 3 = 6 (grade [...] by: Marie Romeo MD cc: Barbara Porter [address] [place] [address] documented in this encounter [facility] 04-14-2023 Hospital Discharge instructions Patient Education [...] treatment? Where to find more information The [place] [employer]: www.cancer.org [place] [employer]: www.auanet.org Contact a health care [...] provider. Document Revised: 08/13/2021 Document Reviewed: 08/13/2021 [employer] Patient Education 2022 [employer]. Follow Up Care 08/12/2022 11:03:54 With:SONNY CODY, Tomasz Quigley URL Address: [facility] [address], [place] [address]- [phone] When: Unknown Comments:1 yr w/ PSA [facility] [place] 10-15-2022 Note HNO ID: [id number] Author: Marie Romeo MD Service: ? Author [...] by: Marie Romeo MD cc: Barbara Porter [address] [place] [id number] [facility] 04-19-2022 Note HNO ID: [id number] Author: Pradip Ulrich APRN.CNP Service: ? Author Type: Nurse Practitioner Type: Progress Notes Filed: 04/19/2022 12:42 PM Note Text: Braxton Stoddard was seen and examined by Dr. Romeo today. He denies any problems with bowel movements. He is urinating well without any pain, burning or difficulty. He was given treatment survivorship care plan for prostate cancer. Pradip Ulrich APRN.CNP Discussed [facility] 04-19-2022 History of Present illness Narrative Braxton Stoddard was seen and examined by Dr. Romeo today. He denies any problems with bowel movements. He is urinating well without any pain, burning or difficulty. He was given treatment survivorship care plan for prostate cancer. Pradip Ulrich APRN.CNP Discussed documented in this encounter [facility] 04-19-2022 Note HNO ID: [id number] Author: Marie Romeo MD Service: ? Author Type: Physician Type: Progress Notes Filed: 04/25/2022 1:52 PM Note Text: Radiation Oncology - Follow Up Note PATIENT NAME: Braxton Stoddard PATIENT DIAGNOSIS: Prostate adenocarcinoma, initial PSA 4.6, biopsy Pinetop score 3 + 3 = 6 (grade [...] Romeo MD cc: Barbara Porter [address] [place] [address] [facility] 04-19-2022 History of Present illness Narrative Radiation Oncology - Follow Up Note PATIENT NAME: Braxton Stoddard PATIENT DIAGNOSIS: Prostate adenocarcinoma, initial PSA 4.6, biopsy Pinetop score 3 + 3 = 6 (grade [...] ASSESSMENT/PLAN: Prostate adenocarcinoma, initial PSA 4.6, biopsy Pinetop score 3 + 3 = 6 (grade [...] Marie Romeo MD cc: Barbara Porter [address] [facility] [place] [address] documented in this encounter [facility] 02-11-2022 Hospital Discharge instructions Patient Education [...] Follow these instructions at home: Medicines Take adsl-yck-zskkeyr and prescription medicines only as told by [...] 02/14/2001 Document Revised: 01/30/2018 Document Reviewed: 03/05/2017 i[employer] Patient Education 2020 [employer]. Follow Up Care 12/21/2021 12:49:39 With:SONNY CODY, Tomasz Quigley, URL Address: [facility] [address] [place] [address]- When: Unknown [facility] 10-09-2021 History of Present illness Narrative Radiation [...] ASSESSMENT/PLAN: Prostate adenocarcinoma, initial PSA 4.6, biopsy Pinetop score 3 + 3 = 6 (grade [...] by: Marie Romeo MD cc: Barbara Porter [address] [place] [phone] documented in this encounter [facility] 08-09-2022 Nurse Note AUA= 24 documented in this encounter [facility] 09-26-2021 History of Present illness Narrative Patient: Braxton Stoddard Date:09/26/2021 [facility] Department of Radiation Oncology [facility] RADIATION ONCOLOGY POST SEED IMPLANT SIMULATION NOTE [...] M.D. 2:44 PM documented in this encounter [facility] 09-25-2021 Hospital Discharge instructions Patient Education [...] of fruits and vegetables. General instructions Take rkeq-xso-sdljibm and prescription medicines only as told by [...] 03/22/2011 Document Revised: 01/30/2018 Document Reviewed: 03/21/2017 [employer] Patient Education 2020 [employer] Follow Up Care 08/30/2021 14:33:04 With:Ghulam Larkin MD, Rohan Rivera, URO Address: [facility] [address], [place] [address]- [phone] When:Within 4 Month(s) [facility] [place] 09-11-2021 Nurse Note AUA= 24 documented in this encounter [facility] 09-11-2021 History of Present illness Narrative [...] once daily. REVIEW OF SYSTEMS: D/N = 5-6/3 Hematuria: none Dysuria: none Incontinence: none Urgency: [...] ASSESSMENT/PLAN: Prostate adenocarcinoma, initial PSA 4.6, biopsy Pinetop score 3 + 3 = 6 (grade [...] by: Marie Romeo MD cc: Barbara Porter [address] [place] [phone] documented in this encounter [facility] 08-31-2021 History of Present illness Narrative Date: 08/28/2021 Facility: [facility] Procedure: prostate transperineal brachytherapy implant Sources: [...] activity seen, results documented. Sujey Romeo MD [facility] documented in this encounter [facility] 08-07-2021 History of Present illness Narrative [...] Marie Romeo MD documented in this encounter [facility] 08-07-2021 History of Present illness Narrative BRAXTON STODDARD [id number] 08/07/2021 [facility] Department of Radiation Oncology [facility] RADIATION ONCOLOGY SIMULATION NOTE DATE OF SIMULATION: 08/07/2021 MACHINE: [employer] 500 Diagnosis: 185 (Prostate Gland) AREA:Prostate PATIENT POSITION: Supine CONTRAST: None PROTOCOL: None CONCURRENT THERAPY: None FIXATION DEVICE: UTS Stabilization device by [employer]. PROCEDURE: Patient was simulated in exaggerated dorsal lithotomy position. Serial images of the prostate were acquired using TRUS and reconstructed in 3D space. These images were imported into [employer] Prostate planning system where a plan was generated. ASSESSMENT/PLAN: Patient tolerated simulation procedure well. Electronically Signed Chato Romeo M.D. / 21:55 PM documented in this encounter [facility] 07-24-2021 History of Present illness Narrative [...] revealed: 46.9 cc gland, without hypoechogenic areas. Pinetop 6 left lateral apex involving 1 core [...] Marie Romeo MD cc: Barbara Porter [address] [place] [address] Rohan Parmar JR, MD [address] [facility] [address] documented in this encounter [facility] 07-24-2021 Nurse Note AUA= 16 documented in this encounter [facility] 07-10-2021 Hospital Discharge instructions Patient Education [...] who: Are older than age 65. Are -[place]. Are obese. Have a family history of [...] cells. Follow these instructions at home: Take omzf-dig-ztquwqa and prescription medicines only as told by [...] 02/17/2006 Document Revised: 01/30/2018 Document Reviewed: 10/28/2016 i[employer] Patient Education 2020 [employer]. Follow Up Care 06/26/2021 12:04:04 With:Ghulam Larkin MD, KAREN Marie Address: [facility] [address] , [place] [address]- When: Unknown Comments:will see us after seed implant procedure [facility] 06-26-2021 Hospital Discharge instructions Patient Education 06/26/2021 [...] who: Are older than age 65. Are -[place]gandan. Are obese. Have a family history of [...] cells. Follow these instructions at home: Take nurx-uic-fofvvrx and prescription medicines only as told by [...] 02/17/2006 Document Revised: 01/30/2018 Document Reviewed: 10/28/2016 [employer] Patient Education 2020 [employer]. Follow Up Care 06/08/2021 08:32:10 With:Ghulam Larkin MD, Rohan Rivera, URO Address: [facility] [address] [place] [address]- When:07/17/2021 [facility] [place] 06-07-2021 Hospital Discharge instructions Patient Education 06/07/2021 [...] for your post-operative appointment in 1-2 weeks [phone] or [phone] 06/07/2021 12:28:04 Post Op Patient Instructions - FT (CUSTOM) Follow Up Care 05/17/2021 15:25:20 With:Rohan Parmar Address: [facility] [address], [place] [address]- Business (1) When:2 to 4 weeks Comments:Review pathology report. [facility] Evaluation + Plan note No data available for this section [facility] Evaluation + Plan note Future Appointments Appointment Date:07/10/2021 10:15:00 AM Scheduled Provider:Rohan Parmar Jr., MD Location:[facility] Appointment Type:URO Office Visit [facility] Evaluation + Plan note Future Appointments Appointment Date:01/08/2022 08:00:00 AM Scheduled Provider:Rohan Parmar Jr., MD Location:[facility] Appointment Type:URO Office Visit [facility] Evaluation + Plan note Future Appointments Appointment Date:08/12/2022 10:15:00 AM Scheduled Provider:Tomasz ESCOBAR MD Location:[facility] Appointment Type:URO Office Visit Diagnostic Tests PendingPSA Total 02/11/22 [facility] Evaluation + Plan note Future Appointments Appointment Date:04/16/2024 09:30:00 AM Scheduled Provider:Tomasz ESCOBAR MD Location:[facility] Appointment Type:URO Office Visit Diagnostic Tests PendingPSA Total 04/14/23 [facility] Evaluation note Diagnosis Malignant neoplasm of prostate (HCC)- Primary Malignant neoplasm of prostate [facility] Diagnosis Malignant neoplasm of prostate (HCC)- Primary [facility] neoplasm of [facility] Malignant neoplasm of prostate (HCC)- Primary Malignant neoplasm of prostate [facility] Prostate cancer (HCC) Malignant neoplasm of prostate [facility] Malignant neoplasm of prostate (HCC)- Primary Malignant neoplasm of prostate [facility] Malignant neoplasm of prostate (HCC)- Primary Malignant neoplasm of prostate [facility] No data available for this section [facility] [place] Summary Purpose Family History No Family History [...] or prosecute any alcohol or drug abuse patient.[facility] the event this information is protected by the Federal Confidentiality of Alcohol and Drug Abuse Patient Records regulations: The Federal rules restrict any use of the information to criminally investigate or prosecute any alcohol or drug abuse patient.[facility] the event this information is protected by the Federal Confidentiality of Alcohol and Drug Abuse Patient Records regulations: The Federal rules restrict any use of the information to criminally investigate or prosecute any alcohol or drug abuse patient.[facility] the event this information is protected by the Federal Confidentiality of Alcohol and Drug Abuse Patient Records regulations: The Federal rules restrict any use of the information to criminally investigate or prosecute any alcohol or drug abuse patient.[facility] the event this information is protected by the Federal Confidentiality of Alcohol and Drug Abuse Patient Records regulations: The Federal rules restrict any use of the information to criminally investigate or prosecute any alcohol or drug abuse patient.[facility] the event this information is protected by the Federal Confidentiality of Alcohol and Drug Abuse Patient Records regulations: The Federal rules restrict any use of the information to criminally investigate or prosecute any alcohol or drug abuse patient.[facility] the event this information is protected by the Federal Confidentiality of Alcohol and Drug Abuse Patient Records regulations: The Federal rules restrict any use of the information to criminally investigate or prosecute any alcohol or drug abuse patient.[facility]In the event this information is protected by the Federal Confidentiality of Alcohol and Drug Abuse Patient Records regulations: The Federal rules restrict any use of the information to criminally investigate or prosecute any alcohol or drug abuse patient.[facility] the event this information is protected by the Federal Confidentiality of Alcohol and Drug Abuse Patient Records regulations: The Federal rules restrict any use of the information to criminally investigate or prosecute any alcohol or drug abuse patient.[facility] the event this information is protected by the Federal Confidentiality of Alcohol and Drug Abuse Patient Records regulations: The Federal rules restrict any use of the information to criminally investigate or prosecute any alcohol or drug abuse patient.[facility]In the event this information is protected by the Federal Confidentiality of Alcohol and Drug Abuse Patient Records regulations: The Federal rules restrict any use of the information to criminally investigate or prosecute any alcohol or drug abuse patient.[facility] the event this information is protected by the Federal Confidentiality of Alcohol and Drug Abuse Patient Records regulations: The Federal rules restrict any use of the information to criminally investigate or prosecute any alcohol or drug abuse patient.[facility] Reason for Visit (unrecogniz ed section and content) Reason Comments Consult Reason Comments Volume Study Reason Comments Prostate Cancer Reason Comments Prostate Cancer 6 month follow up Care Teams (unrecognized sec tion and content) Supervisor [employer] Relationship Specialty Start Date End Date Barbara Porter MD [address] [place] [address] PCP - General Family Practice 07/18/21 Rohan Parmar Jr. [address] [place] [address] Referring Urology 07/18/21 Supervisor [employer] Relationship Specialty Start Date End Date Barbara Porter MD [address] [place] [address] PCP - General Family Practice 07/18/21 Rohan Parmar Jr. [address] [place] [address] Referring Urology 07/18/21 Supervisor [employer] Relationship Specialty Start Date End Date Barbara Porter MD [address] [place] [address] PCP - General Family Practice 07/18/21 Rohan Parmar Jr. [address] [place] [address] Referring Urology 07/18/21 Supervisor [employer] Relationship Specialty Start Date End Date Barbara Porter MD [address] [place] [address] PCP - General Family Practice 07/18/21 Rohan Parmar Jr. [address] [place] [address] Referring Urology 07/18/21 Supervisor [employer] Relationship Specialty Start Date End Date Barbara Porter MD [address] [place] [address] PCP - General Family Practice 07/18/21 Rohan Parmar Jr. [address] [place] [address] Referring Urology 07/18/21 Supervisor [employer] Relationship Specialty Start Date End Date Barbara Porter MD [address] [place] [address] PCP - General Family Medicine 07/18/21 Rohan Parmar Jr. [address] [place] [address] Referring Urology 07/18/21 Supervisor [employer] Relationship Specialty Start Date End Date Barbara Porter MD [address] [place] [address] PCP - General Family Medicine 07/18/21 Rohan Parmar Jr. [address] [place] [address] Referring Urology 07/18/21 Supervisor [employer] Relationship Specialty Start Date End Date Barbara Porter MD PCP - General Family Medicine 07/18/21 Rohan Parmar Jr. [address] [place] [address] Referring Urology 07/18/21 (unrecognized sect ion and content) No Status Records FoundNo Status Records FoundNo Status Records Found INFORMATION SOURCE (unrecogn ized section and content) DATE CREATED AUTHOR 04/20/2022 [facility] DATE CREATED AUTHOR AUTHOR'S ORGANIZ ATION 04/18/2023 [facility] DATE CREATED AUTHOR AUTHOR'S ORGANIZ ATION 08/10/2023 [facility] FOR RECORDS PERTAINING TO PATIENTS WHO ARE [...] BE BASED ON THE PRIMARY CLINICAL RECORDS. [employer] [facility]. provides no warranty or guarantee of the accuracy or completeness of information in this document.
--- NOTE | 2023-08-26 10:03 | PM.STRESS ---
Stress Test Stress Test Requesting physician: Steven Ayers Procedure: Exercise Cardiolite stress test General Information: Reason for Stress Test: Fatigue, dyspnea Cardiac History and Risk Factors: No personal history reported. Father had valve replaced . Resting 12 - Lead Electrocardiogram: Rate & rhythm: Sinus bradycardia at a rate of 57. [place]: Normal Right bundle branch block (RBBB) Stress Test: Protocol: Samuel protocol was followed, with injection of Cardiolite once target heart rate was achieved. Exercise capacity: Excellent exercise capacity. Total exercise time of 9 minutes 27 seconds reached Samuel stage 4 at 4.2MPH, 16% grade, & 11.5 METs. Blood pressure: Initial: 152/92, Maximum: 204/98 Rate & rhythm: Patient remained in sinus rhythm during the exercise and recovery portions of the study.? The maximum heart rate was 136, which was 86% of the maximum predicted heart rate. PVCs and PACs were noted. ST-segments & T-waves: The presence of a RBBB made interpreting several ST segments difficult, but during recovery, there was an appreciable 1-2mm ST segment depression in II and aVF, as well as V4-6. Patient response/symptoms: No reproducible symptoms to chief complaint. Interpretation: This is an abnormal exercise stress test based on ST segment abnormalities in the inferolateral leads. No reproducible symptoms. Cardiolite imaging interpretation will be reported separately. Clinical correlation required.?
--- NOTE | 2023-08-26 10:30 | PC.NURSE ---
Nursing Note Cardiac Stress Test Reviewed: Medication, allergies and patient history reviewed. Stress Test: [ x] Patient tolerated stress test well. [ ] Patient unable to tolerate walking on treadmill. Switched to Lexiscan stress test. [ x] No chest pain noted per patient. Patient states he has some chest tightness at all times. He reports this tightness was unchanged through out the course of the test and recovery. [ ] Chest pain that resolved prior to leaving stress lab. [ x] No dyspnea noted. [ ] Dyspnea that resolved prior to leaving stress lab. [ x] Patient left stress lab asymptomatic and hemodynamically stable. [ ] Patient taken to the Emergency Room due to non-resolving symptoms following stress test. [ x] Patient achieved target heart rate. [ ] Patient unable to achieve target heart rate. [ ] Aminophylline administered as reversal agent to Lexiscan (Regadenoson). [ ] Nitro administered. Nursing Comments: Patient states he has some chest tightness at all times. He reports this tightness was unchanged through out the course of the test and recovery.
== END 2023-08-26 07:27 | disposition home or self-care (01) ==
LOC: NM 07:26
PROVIDERS: PCP Family Medicine; Visit Provider Family Medicine
DX: R06.00 Dyspnea, unspecified (principal)
CPT/HCPCS: 78452; 93017; A9500

== ENCOUNTER 2023-09-01 12:27 | Outpatient (OUT) | payer BC, SELFPAY ==
--- NOTE | 2023-09-01 12:37 | US_ITS ---
The [address] [address] Patient Name: IKER SALINAS MRN: [id number] date: 1960 Sex: M Assigned Patient Location: US Current Patient Location: Accession/Order Number: [id number] Exam Date: 09/01/2023 12:47 Report Date: 09/02/2023 08:18 At the request of: ZEB RAMIREZ Procedure: US right upper quadrant EXAM: US right upper quadrant HISTORY: . right upper quadrant abd pain . COMPARISON: None. TECHNIQUE: Grayscale and color imaging was performed FINDINGS: The pancreas is grossly unremarkable. Scanning of the liver demonstrates a liver to be normal in size. No masses are noted. Color-flow is noted in the portal and hepatic veins. The gallbladder appears normal with no stones or sludge identified. No gallbladder wall thickening is noted. Common bile duct measures 5 mm. Right kidney measures 11.1 x 5.8 x 6.4 cm. No solid renal cortical masses or hydronephrosis is noted. Color-flow is noted. No fluid is noted in the right upper quadrant. US/US right upper quadrant IMPRESSION: Normal ultrasound of the right upper quadrant. Electronically authenticated by: CATERINA GARZA Date: 09/02/2023 08:18
--- OUTSIDE RECORDS SUMMARY | 2023-09-01 12:42 | XMS_ITS | CCD ---
Author Organization [facility] Informat ion Partnership [facility] Care Team Providers Care Bingo Manager Name Role Phone BARBARA PORTER Primary Care [...] PORTER, DR BARBARA Sheets Primary Care Unavailable CARMICHAEL, DR CATERINA Seals Consulting Unavailable RASHMI, DR MACKENZIE Francis Consulting Unavailable GHULAM GILL, DR ROHAN Rivera Consulting Unavailtoñito sheets AGUBOSIM, SANTINO Consulting Unavailable PERLITA HOPSON Consulting Unavailable ANGELICA [...] Admitting Unavailable Steven Ayers Primary Care Physician Barbara Porter MD Primary Care Provider Marie [...] Allergy father gets really sick, in the [facility] Medications Current Medications Medication Drug Class(es) Dates Sig (Normalized) Sig (Original) 24 hr alfuzosin hydrochloride 10 mg extended release oral tablet (5 sources) alpha-Adrenergic Susana Start: 03-06-2022 take 1 tablet by mouth every other day alfuzosin 10 mg ER Tab 10 mg = 1 tab(s), Oral, Every other day, # 15 tab(s), Refills(s) 0, Pharmacy: [facility]/pharmacy #[id number], 182, cm, 04/14/23 12:26:00 EST, Height/Length Dosing, [...] Daily, # 30 tab(s), Refills(s) 6, Pharmacy: [facility]/pharmacy #[id number], 182, cm, 02/11/22 13:09:00 [...] day, # 60 tab(s), Refills(s) 1, [id number] 182, cm, 09/25/21 [...] TAKE 1 TABLET BY MOUTH EVERY DAY, [facility] STORE [id number], 182, cm, 08/12/22 10:27:00 EDT, Height/Length Dosing, [...] 08-08-2023 Auth for Release of Medical Records [id number] 0TIFF Normal [facility] CNOVon 04-16-2023 CNOV Office Visit (RADTSA ) RICHIBRAXTON MATTHEW ([id number]) 1960 M Date Time Provider Department 04/16/23 10:15 AM Marie ROMEO RADDANEA During your visit today, we recorded the following information about you: Temperature Pulse Respiration Blood pressure 97.5 degrees 52/minute 18/minute 132/86 Weight 111.7 kg Marie Romeo MD 04/16/2023 10:28 AM Signed Radiation Oncology - Follow Up Note PATIENT NAME: Braxton Stoddard PATIENT DIAGNOSIS: Prostate adenocarcinoma, initial PSA 4.6, biopsy [place] score 3 + 3 = 6 (grade [...] by: Marie Romeo MD cc: Barbara Porter [address] [place] [address] Janelle Ch LPN 04/16/2023 10:28 AM Signed AUA= 7 Referring Provider: Marie ROMEO [[id number]] Allergies As of Date: 04/16/2023 (No Known Allergies) Date Reviewed: 04/16/2023 Reviewed by: Janelle Ch LPN - Fully Assessed Reason for Visit: Prostate Cancer [590] Primary Visit Diagnosis:Malignant neoplasm of prostate (HCC) [C61] Order(s):PSA (OUTSIDE) [[id number]] Order #: [id number] PSA/PROSTSPECAG DIAG [SQPSA] Order #: [id number] FUTURE Prescriptions as of 04/16/2023 - alfuzosin [...] Status:Closed by Marie ROMEO on 04/16/23 Normal [facility] Ambulatory Visit Summaryon 0 04-14-2023 Ambulatory [...] [facility] [address], [place] [id number]- [phone] Medications What How Much When Instructions Unchanged [...] is perf (more content not included)... Normal [facility] Patient Educationon 04-14-19 Patient Education Oncology [...] Where to find more information ? The [place] [employer]: www.cancer.org ? [place] [employer]: www.auanet.org Contact a health care [...] adds flu (more content not included)... Normal [facility] Urology Office/Clinic Noteon 04-14-2023 Urology Office/Clinic [...] 0.26 01/29/23 - 0.13 TRUS/bx 06/07/21 - Brady score 6 (3+3) [...] [facility] [address], [place] [id number]- [phone] Additional Instructions: 1 yr w/ PSA Patient [...] Protein Urine Dipstick: Negative (04/14/23 12:23:00) Specific [place] Urine Dipstick: 1.010 (04/14/23 12:23:00 (more content not included)... Normal [facility] Comment on above: Result Comment: Elec tronically Signed By: SONNY CODY, Tomasz Garcia.br\Date and Time Signed: 04/14/23 13:27 EST\.br\Electronically Co-Signed By: Rosalina Mosher\.radha\Date and Time Co-Signed: 04/14/23 13:22 EST Lab Reportson 01-29-2023 Lab Reports [id number] 0TIFF Normal [facility] CNOVon 10-15-2022 CNOV Office Visit (RADTSA ) BRAXTON STODDARD ([id number]) 1960 M Date Time Provider Department 10/15/22 [...] ASSESSMENT/PLAN: Prostate adenocarcinoma, initial PSA 4.6, biopsy [place] score 3 + 3 = 6 (grade group 1), clinical stage T1c, N0, M0, stage I [cT1a-c/T2a, N0, M0, PSA <10, GG 1] (AJCC 8th ed.), s/p TRUS Random biopsy. Patient overall doing well. PSA continues to decline. No significant posttreatment related problems. Recommend continued close observation with serial PSA. Signed by: Marie Romeo MD cc: Barbara Porter [facility] [place] [address] Referring Provider: Marie ROMEO [[id number]] Allergies As of Date: 10/15/2022 (No Known Allergies) Date Reviewed: 10/15/2022 Reviewed by: Alicia Reveles RN - Fully Assessed Reason for Visit: Prostate Cancer [590] Primary Visit Diagnosis:Malignant neoplasm of prostate (HCC) [C61] Order(s):PSA (OUTSIDE) [[id number]] Order #: [id number] PSA/PROSTSPECAG DIAG [SQPSA] Order #: [id number] FUTURE Prescriptions as of 10/15/2022 - alfuzosin [...] for Encounter Date Provider Department Center 10/15/2022 [id number] Encounter Status:Closed by Marie ROMEO on 10/15/22 [facility] Ambulatory Visit Summaryon 0 08-12-2022 Ambulatory Visit Summary BRAXTON STODDARD :1960 Visit Date:08/12/2022 Ambulatory Visit Instructions Your Diagnosis Prostate cancer 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 Take [id number] and prescription medicines only as told by [...] include cig (more content not included)... Normal [facility] Urology Office/Clinic Noteon 08-12-2022 Urology Office/Clinic [...] With When Contact Information SONNY CODY, Tomasz uQigley, URL [facility] [address] , [place] [address]- Additional Instructions: 6 mos PSA Patient Education [...] Tobacco Use: (more content not included)... Normal [facility] Comment on above: Result Comment: Elec tronically Signed By: Tomasz ESCOBAR MD\.br\Date and Time Signed: 08/12/22 11:03 EDT\.br\Electronically Co-Signed By: Mary Ann Chilel.br\Date and Time Co-Signed: 08/12/22 11:01 EDT CNOVon 04-19-2022 CNOV Office Visit (RADTSA ) BRAXTON [id number]) 1960 M Date Time Provider Department 04/19/22 10:15 AM Marie ROMEO During your visit today, we recorded the following information about you: Temperature Pulse Respiration Blood pressure 97.2 degrees 54/minute 16/minute 172/84 Weight 116 kg G Chato Romeo MD 04/25/2022 1:52 PM Signed Radiation Oncology - Follow Up Note PATIENT NAME: Braxton Stoddard PATIENT DIAGNOSIS: Prostate adenocarcinoma, initial PSA 4.6, biopsy [place] score 3 + 3 = 6 (grade [...] ASSESSMENT/PLAN: Prostate adenocarcinoma, initial PSA 4.6, biopsy [place] score 3 + 3 = 6 (grade [...] by: Marie Romeo MD cc: Barbara Porter [address] [place] [id number] Referring Provider: Marie ROMEO [[id number]] Allergies As of Date: 04/19/2022 (No Known Allergies) Date Reviewed: 04/19/2022 Reviewed by: Pradip Ulrich APRN.SENIOR DIRECTOR MARKETING - Fully Assessed Reason for Visit: Prostate Cancer [590] Cmt: 6 month follow up Primary Visit Diagnosis:Malignant neoplasm of prostate (HCC) [C61] Order(s):PSA (OUTSIDE) [[id number]] Order #: [id number] PSA/PROSTSPECAG DIAG [SQPSA] Order #: [id number] FUTURE Prescriptions as of 04/25/2022 - alfuzosin [...] for Encounter Date Provider Department Center 04/19/2022 [id number] ROMEO Encounter Status:Closed by Marie ROMEO on 04/25/22 [facility] (SP) Office ([place]) BRAXTON STODDARD ([id number]) 1960 M Date Time Provider Department 04/19/22 10:30 AM PRADIP ULRICH During your visit today, we recorded the following information about you: Pradip Ulrich APRN.SENIOR DIRECTOR MARKETING 04/19/2022 12:42 PM Signed Braxton Epstein [place] was seen and examined by Dr. Romeo today. He denies any problems with bowel movements. He is urinating well without any pain, burning or difficulty. He was given treatment survivorship care plan for prostate cancer. Pradip Ulrich APRN.SENIOR DIRECTOR MARKETING Discussed Referring Provider: Marie ROMEO [[id number]] Allergies As of Date: 04/19/2022 (No Known Allergies) Date Reviewed: 04/19/2022 Reviewed by: Pradip Ulrich APRN.SENIOR DIRECTOR MARKETING - Fully Assessed Visit Diagnosis:Prostate cancer (HCC) [...] Status:Closed by PRADIP ULRICH on 04/19/22 Normal [facility] XR HAND RT MIN 3Von 12-18-19 [...] CATERINA CHAVEZ Date: 2021-12-17 18:59 Normal [facility] XR PELVIS 1_2 VIEWSon 2021 XR PELVIS 1_2 VIEWS EXAMINATION: XR PELVIS 1_2 VIEWS HISTORY: History of prostate seed brachytherapy COMPARISON: No relevant comparison available. FINDINGS: 1 image. 18 seconds of fluoroscopy Single image demonstrates prostate seed implantation. Iodinated contrast with urinary bladder IMPRESSION: Image from prostate seed implantation Electronically authenticated by: CATERINA SANDHU Date: 2021-08-29 08:06 Normal [facility] Covid-19 PCR (CVDTBH)on 08-02 SARS-CoV-2 (COVID-19) RNA SILVA+probe Ql (Unsp spec) Not detected Normal NOT DETECTED [facility] Comment on above: Result Comment: This test is not yet approved or cleared by the [place] FDA. When there are no FDA-approved or cleared tests available, and other criteria are met, FDA can make tests available under an emergency access mechanism called an Emergency Use Authorization (EUA). The EUA for this test is supported by the Operations Support Manager of Health and Human Service's (HHS's) declaration [...] SARS-CoV-2. Performed By: #### C VDTBH #### [facility] [address] [place] [address] Lisandra Cisneros PROF CHEM 8 (BAS METB)on Anion gap [Moles/Vol] 10.7 mmol/L Normal [facility] Comment on above: Performed By: #### B MP #### [facility] [address] [address] [address] Lisandra Cisneros Calcium [Mass/Vol] 9.0 mg/dL Normal 8.5-10.1 [facility] Comment on above: Performed By: #### B MP #### [facility] [address] [address] [address] Lisandra Cisneros Chloride [Moles/Vol] 98 mmol/L Normal 98-107 [facility] Comment on above: Performed By: #### B MP #### [facility] [address] [address] [address] Lisandra Cisneros CO2 [Moles/Vol] 27.7 mmol/L Normal 21.0-32.0 [facility] Comment on above: Performed By: #### B MP #### [facility] [address] [place] [address] Dr. Lisandra Cisneros Creatinine [Mass/Vol] 0.87 mg/dL Normal 0.70-1.30 [facility] Comment on above: Performed By: #### B MP #### [facility] [address] [address] [address] Lisandra Cisneros EGFR-AF NEPALESE >60 Normal >=60 [facility] Comment on above: Performed By: #### B MP #### [facility] [address] [address] [address] Lisandra Cisneros EGFR-NON AF NEPALESE >60 Normal >=60 [facility] Comment on above: Performed By: #### B MP #### [facility] [address] [address] [address] Lisandra Cisneros Glucose [Mass/Vol] 101 mg/dL Normal 74-106 [facility] Comment on above: Performed By: #### B MP #### [facility] [address] [address] [address] Lisandra Cisneros Potassium [Moles/Vol] 4.4 mmol/L Normal 3.5-5.1 [facility] Comment on above: Performed By: #### B MP #### [facility] [address] [address] [address] Lisandra Cisneros Sodium [Moles/Vol] 132 mmol/L Critically low 136-145 Th e [facility] Comment on above: Performed By: #### B MP #### [facility] [address] [place], [place] [address] Dr. Lisandra Cisneros Urea nitrogen [Mass/Vol] 13.0 mg/dL Normal 7.0-18.0 [facility] Comment on above: Performed By: #### B MP #### [facility] [address] [place], [place] [address] Dr. Lisandra Cisneros Urea nitrogen/Creatinin e [Mass ratio] 14.9 mg/mg Normal [facility] Comment on above: Performed By: #### B MP #### [facility] [address] [place], [place] [address] Dr. Lisandra Cisneros Vital Signs Date Time Vital Sign Value Performing Clinician Facility 04-16-2023 10:13-0500 Body temperature 97.5 [degF] INGRID Romeo MD Work Phone: [facility] 04-16-2023 10:13-0500 Body weight 111.7 kg INGRID Romeo MD Work Phone: [facility] 04-16-2023 10:13-0500 Diastolic blood pressure 86 mm[Hg] INGRID Romeo MD Work Phone: [facility] 04-16-2023 10:13-0500 Heart rate 52 /min INGRID Romeo MD Work Phone: [facility] 04-16-2023 10:13-0500 Respiratory rate 18 /min INGRID Romeo MD Work Phone: [facility] 04-16-2023 10:13-0500 SaO2% (BldA) [Mass fraction] 99 % INGRID Romeo MD Work Phone: [facility] 04-16-2023 10:13-0500 Systolic blood pressure 132 mm[Hg] INGRID Romeo MD Work Phone: [facility] 04-19-2022 10:12-0500 Body temperature 97.2 [degF] INGRID Romeo MD Work Phone: [facility] 04-19-2022 10:12-0500 Body weight 116.03 kg INGRID Romeo MD Work Phone: [facility] 04-19-2022 10:12-0500 Diastolic blood pressure 84 mm[Hg] INGRID Romeo MD Work Phone: [facility] 04-19-2022 10:12-0500 Heart rate 54 /min INGRID Romeo MD Work Phone: [facility] 04-19-2022 10:12-0500 Respiratory rate 16 /min INGRID Romeo MD Work Phone: [facility] 04-19-2022 10:12-0500 SaO2% (BldA) [Mass fraction] 100 % INGRID Romeo MD Work Phone: [facility] 04-19-2022 10:12-0500 Systolic blood pressure 172 mm[Hg] INGRID Romeo MD Work Phone: [facility] 02-11-2022 13:08-0500 Blood Pressure Location oTmasz ESCOBAR [facility] 02-11-2022 13:08-0500 Diastolic blood pressure 101 mm[Hg] Tomasz ESCOBAR [facility] 02-11-2022 13:08-0500 Heart rate 66 /min Tomasz ESCOBAR [facility] 02-11-2022 13:08-0500 Systolic blood pressure 137 mm[Hg] Tomasz ESCOBAR [facility] 10-09-2021 14:56-0400 Body temperature 98.01 [degF] INGRID Romeo MD Work Phone: [facility] 10-09-2021 14:56-0400 Body weight 111.13 kg INGRID Romeo MD Work Phone: [facility] 10-09-2021 14:56-0400 Diastolic blood pressure 94 mm[Hg] INGRID Romeo MD Work Phone: [facility] 10-09-2021 14:56-0400 Heart rate 56 /min INGRID Romeo MD Work Phone: [facility] 10-09-2021 14:56-0400 Respiratory rate 18 /min INGRID Romeo MD Work Phone: [facility] 10-09-2021 14:56-0400 SaO2% (BldA) [Mass fraction] 100 % INGRID Romeo MD Work Phone: [facility] 10-09-2021 14:56-0400 Systolic blood pressure 152 mm[Hg] INGRID Romeo MD Work Phone: [facility] 09-25-2021 09:54-0400 Blood Pressure Location Rohan Parmar Jr. [facility] 09-25-2021 09:54-0400 Diastolic blood pressure 99 mm[Hg] Rohan Parmar Jr. [facility] 09-25-2021 09:54-0400 Heart rate 52 /min Rohan Parmar Jr. [facility] 09-25-2021 09:54-0400 Respiratory rate 16 /min Rohan Parmar Jr. [facility] 09-25-2021 09:54-0400 Systolic blood pressure 178 mm[Hg] Rohan Parmar Jr. [facility] 09-11-2021 14:00-0400 Body temperature 96.91 [degF] INGRID Romeo MD Work Phone: [facility] 09-11-2021 14:00-0400 Body weight 109.77 kg INGRID Romeo MD Work Phone: [facility] 09-11-2021 14:00-0400 Diastolic blood pressure 88 mm[Hg] INGRID Romeo MD Work Phone: [facility] 09-11-2021 14:00-0400 Heart rate 59 /min INGRID Romeo MD Work Phone: [facility] 09-11-2021 14:00-0400 Respiratory rate 16 /min INGRID Romeo MD Work Phone: [facility] 09-11-2021 14:00-0400 SaO2% (BldA) [Mass fraction] 100 % INGRID Romeo MD Work Phone: [facility] 09-11-2021 14:00-0400 Systolic blood pressure 123 mm[Hg] INGRID Romeo MD Work Phone: [facility] 07-10-2021 11:07-0400 Diastolic blood pressure 92 mm[Hg] Rohan Parmar Jr. [facility] 07-10-2021 11:07-0400 Mean blood pressure 108 mm[Hg] Rohan Parmar Jr. [facility] 07-10-2021 11:07-0400 Systolic blood pressure 140 mm[Hg] Rohan Parmar Jr. [facility] 07-10-2021 10:57-0400 Blood Pressure Location Rohan Parmar Jr. [facility] 07-10-2021 10:57-0400 Diastolic blood pressure 96 mm[Hg] Rohan Parmar Jr. [facility] 07-10-2021 10:57-0400 Heart rate 78 /min Rohan Parmar Jr. [facility] 07-10-2021 10:57-0400 Respiratory rate 16 /min Rohan Parmar Jr. [facility] 07-10-2021 10:57-0400 Systolic blood pressure 142 mm[Hg] Rohan Parmar Jr. [facility] 06-26-2021 11:17-0400 Blood Pressure Location Rohan Parmar Jr. [facility] 06-26-2021 11:17-0400 Diastolic blood pressure 117 mm[Hg] Rohan Parmar Jr. [facility] 06-26-2021 11:17-0400 Heart rate 71 /min Rohan Parmar Jr. [facility] 06-26-2021 11:17-0400 Respiratory rate 16 /min Rohan Parmar Jr. [facility] 06-26-2021 11:17-0400 Systolic blood pressure 171 mm[Hg] Rohan Parmar Jr. [facility] 06-07-2021 13:50-0400 Blood Pressure Location Rohan Parmar Jr. [facility] 06-07-2021 13:50-0400 BP/Pulse Patient Position Rohan Parmar Jr. [facility] 06-07-2021 13:50-0400 Diastolic blood pressure 98 mm[Hg] Rohan Parmar Jr. [facility] 06-07-2021 13:50-0400 Heart rate 56 /min Rohan Parmar Jr. [facility] 06-07-2021 13:50-0400 Mean blood pressure 120 mm[Hg] Rohan Parmar Jr. [facility] 06-07-2021 13:50-0400 Respiratory rate 18 /min Rohan Parmar Jr. [facility] 06-07-2021 13:50-0400 SaO2% (BldA) [Mass fraction] 100 % Rohan Parmar Jr. [facility] 06-07-2021 13:50-0400 Systolic blood pressure 163 mm[Hg] Rohan Parmar Jr. [facility] 06-07-2021 12:15-0400 Blood Pressure Location Rohan Parmar Jr. [facility] 06-07-2021 12:15-0400 Diastolic blood pressure 68 mm[Hg] Rohan Parmar Jr. [facility] 06-07-2021 12:15-0400 Heart rate 51 /min Rohan Parmar Jr. [facility] 06-07-2021 12:15-0400 Respiratory rate 16 /min Rohan Parmar Jr. [facility] 06-07-2021 12:15-0400 SaO2% (BldA) [Mass fraction] 96 % Rohan Parmar Jr. [facility] 06-07-2021 12:15-0400 Systolic blood pressure 126 mm[Hg] Rohan Parmar Jr. [facility] 06-07-2021 12:10-0400 Body temperature 97.52 [degF] Rohan Parmar Jr. [facility] 06-07-2021 12:10-0400 Diastolic blood pressure 90 mm[Hg] Rohan Parmar Jr. [facility] 06-07-2021 12:10-0400 Heart rate 52 /min Rohan Parmar Jr. [facility] 06-07-2021 12:10-0400 Respiratory rate 10 /min Rohan Parmar Jr. [facility] 06-07-2021 12:10-0400 SaO2% (BldA) [Mass fraction] 94 % Rohan Parmar Jr. [facility] 06-07-2021 12:10-0400 SaO2% (BldA) [Mass fraction] 95 % Rohan Parmar Jr. [facility] 06-07-2021 12:10-0400 Systolic blood pressure 139 mm[Hg] Rohan Parmar Jr. [facility] 06-07-2021 11:55-0400 Respiratory rate 9 /min Rohan Parmar Jr. [facility] 06-07-2021 11:50-0400 Respiratory rate 10 /min Rohan Parmar Jr. [facility] 06-07-2021 11:41-0400 Body temperature 97.88 [degF] Rohan Parmar Jr. [facility] 06-07-2021 11:30-0400 Respiratory rate 17 /min Rohandale Parmar Jr. [facility] 06-07-2021 09:41-0400 Blood Pressure Location Rohan Parmar Jr. [facility] 06-07-2021 09:40-0400 Body temperature 98.6 [degF] Rohandale Parmar Jr. [facility] 06-07-2021 09:40-0400 Heart rate 72 /min Rohandale Parmar Jr. [facility] Encounters Encounter Date Encounter Type Care Provider Facility Start: 04-16-2024 ambulatory Tomasz Matthews ty:[facility] Start: 04-16-2023 End: 04-16-2023 ambulatory Marie ROMEO Facility:[facility] Start: 04-16-2023 End: 04-16-2023 Patient encounter procedure Marie Romeo MD Work Phone: Radiation Oncology Comment on above: Malignant neoplasm o f prostate (HCC) (Primary Dx) Start: 04-14-2023 End: 04-14-2023 ambulatory Tomazs ESCOBAR Facility:[facility] Start: 04-14-2023 End: 04-14-2023 Patient encounter procedure Tomasz ESCOBAR [facility] Start: 10-15-2022 End: 10-16-2022 ambulatory Marie ROMEO Facility:[facility] Start: 08-12-2022 End: 08-12-2022 ambulatory Tomasz ESCOBAR Facility:[facility] Start: 04-19-2022 End: 04-19-2022 ambulatory Marie ROMEO Facility:[facility] Start: 04-19-2022 End: 04-19-2022 ambulatory Pradip Ulrich [...] procedure Tomasz Dann ESCOBAR [facility] Start: 01-16-2022 End: 01-17-[address] BARBARA [...] procedure Rohan Parmar Jr. [facility] Start: 09-11-2021 End: 09-11-2021 Patient encounter procedure [...] preprocedural laboratory examination DR ROHAN PARMAR JR [facility] Start: 08-23-2021 End: 08-24-[address] ROHAN PARMAR JR Facility:[facility] Start: 08-23-2021 End: 08-24-2021 Encounter for preprocedural laboratory examination DR ROHAN PARMAR JR Facility:[facility] Start: 08-17-2021 Encounter for preprocedural cardiovascular examination DR ROHAN PARMAR JR [facility] Start: 08-17-2021 Encounter for preprocedural laboratory examination DR ROHAN PARMAR JR [facility] Start: 08-16-2021 End: 08-17-[address] ROHAN [...] Start: 08-03-2021 Patient encounter procedure [facility] Provider [facility] Start: 08-02-2021 Patient encounter procedure [facility] Provider [facility] Start: 07-24-2021 End: 07-24-2021 Patient encounter procedure Marie Romeo MD Work Phone: Radiation Oncology Comment on above: Malignant neoplasm o f prostate (HCC) (Primary Dx) Start: 07-10-2021 End: 07-10-2021 Patient encounter procedure Rohan Parmar Jr. [facility] Start: 06-26-2021 End: 06-26-2021 Patient encounter procedure Rohan Parmar Jr. [facility] Start: 06-07-2021 End: 06-07-2021 Admission to same day surgery center Rohan Parmar Jr. [facility] Procedures Date Procedure Procedure Detail Performing Clinician Start: 01-29-2023 PSA screening [facility] Provi bob Start: 04-16-2022 End: 04-16-2022 PSA screening [facility] Provider Comment on above: Performed By: #### P SAD #### [facility] [address] [place] [address] Dr. Lisandra Cisneros Start: 10-05-[address] ROHAN PARMAR JR Comment on above: Performed By: #### P SAD #### [facility] [address] [place] [address] Dr. Lisandra Cisneros Start: 08-28-2021 Brachytherapy Tomasz W MAYKEL Start: 06-07-2021 Biopsy of prostate Uma Paramr Jr. Start: 03-03-2015 Dilation of esophagus D hien Parmar Jr. Appendectomy Rohan Islas Colonoscopy Rohan Islas Plan of Treatment Date Care Activity Detail Author Start: 12-18-2031 Urine microalbumin profile DTaP,Tdap,Td Vaccine (2 - Tdap) [facility] Start: 01-30-2028 Prostate specific antigen measurement Prostate Cancer Screening Discussion [facility] Start: 04-16-2027 PROSTATE CANCER SCREENING DISCUSSION PROSTATE CANCER SCREENING DISCUSSION [facility] Start: 10-05-2026 PROSTATE CANCER SCREENING DISCUSSION PROSTATE CANCER SCREENING DISCUSSION [facility] Start: 10-15-2023 End: 01-14-2024 Prostate specific Ag [Mass/volume] in Serum or Plasma PSA/PROSTSPECAG DIAG Lab Routine Malignant neoplasm of prostate (HCC) Expected: 10/15/2023, Expires: 01/14/2024 [facility] Work Phone: Comment on above: Expected: 10/15/2023 , Expires: 01/14/2024 Start: 03-03-2023 Depression Assessment Depression Ass essment [facility] Start: 11-01-2022 Influenza vaccination Influenza Vacc ine (#1) [facility] Start: 10-17-2022 End: 12-17-2022 Prostate specific Ag [Mass/volume] in Serum or Plasma PSA/PROSTSPECAG DIAG Lab Routine Malignant neoplasm of prostate (HCC) Expected: 10/17/2022, Expires: 12/17/2022 [facility] Work Phone: Comment on above: Expected: 10/17/2022 , Expires: 12/17/2022 Start: 04-11-2022 End: 06-11-2022 Prostate specific Ag [Mass/volume] in Serum or Plasma PSA/PROSTSPECAG DIAG Lab Routine Malignant neoplasm of prostate (HCC) Expected: 04/11/2022, Expires: 06/11/2022 [facility] Work Phone: Comment on above: Expected: 04/11/2022 , Expires: 06/11/2022 Start: 03-03-2022 DEPRESSION ASSESSMENT DEPRESSION ASS [facility] Start: 11-01-2021 Influenza vaccination [facility] Start: 10-12-2021 End: 12-12-2021 Prostate specific Ag [Mass/volume] in Serum or Plasma PSA/PROSTSPECAG DIAG Lab Routine Malignant neoplasm of prostate (HCC) Expected: 10/12/2021, Expires: 12/12/2021 [facility] Work Phone: Comment on above: Expected: 10/12/2021 , Expires: 12/12/2021 Start: 2021 RSV Vaccine (1 - 1-d ose 60+ series) RSV Vaccine (1 - 1-dose 60+ series) [facility] Start: 2016 PROSTATE CANCER SCREENING DISCUSSION PROSTATE CANCER SCREENING DISCUSSION [facility] Start: 2011 SHINGRIX VACCINE (1 of 2) SHINGRIX VACCINE (1 of 2) [facility] Start: 2006 COLOGUARD (FIT-DNA) COLOGUARD (FIT-D NA) [facility] Start: 2006 Colonoscopy COLONOSCOPY [facility] Start: 2006 COLORECTAL CANCER SCREENING COLORECTAL CANCER SCREENING [facility] Start: [address] COLONOGRAPHY [facility] Start: 2006 DIABETES SCREEN DIABETES SCREEN [facility] Start: 2006 Diabetes Screening Diabetes Screenin g [facility] Start: 2006 FECAL OCCULT BLOOD FECAL OCCULT BLOO D [facility] Start: 2006 Screening for malign ant neoplasm of colon [facility] Start: 2006 SIGMOIDOSCOPY SIGMOIDOSCOPY [facility] Start: 1996 Lipid panel Lipid Screening [facility] Start: 1996 LIPID SCREEN LIPID SCREEN [facility] Start: 1980 SHINGRIX VACCINE (1 of 2) SHINGRIX VACCINE (1 of 2) [facility] Start: 1980 Urine microalbumin profile DTAP,TDAP,TD (1 - Tdap) [facility] Start: 1979 HEPATITIS C SCREENING HEPATITIS C [facility] Start: 1979 Hepatitis C screening Hepatitis C [facility] Start: 1979 HIV SCREENING HIV SCREENING [facility] Start: 1979 HIV screening HIV Screening [facility] Start: 1973 Adult depression screening assessment DEPRESSION SCREENING [facility] Start: 1967 PNEUMOCOCCAL (1 - PCV) PNEUMOCOCCAL (1 - PCV) [facility] Start: 1966 COVID-19 VACCINE (#1) COVID-19 VACCI NE (#1) [facility] Start: 1961 COVID-19 VACCINE (#1) COVID-19 VACCI NE (#1) [facility] Payers Date Payer Category Payer Unknown [id number] 2021 Unknown MMO MMO [employer]US [id number] 2021-Present [phone] [address] [place] [address] PPO [id number] 2021 Unknown [id number] 2019 Unknown [id number] 1961 Unknown [id number] 1961 Unknown [id number] 1961 Unknown [id number] 1961 Unknown [id number] 1961 Unknown [id number] 1961 Unknown [id number] 1961 Unknown [id number] 1961 Unknown [id number] 1961 Unknown [id number] 1961 Unknown [id number] 1961 Unknown [id number] Social History Date Type Detail Facility Tobacco smoking status Never smoker [facility] Start: 10-15-2022 End: 04-16-2023 Sex Assigned At Male [facility] Start: 06-26-2021 End: 10-09-2021 Tobacco smoking status Never smoked tobacco (finding) [facility] Start: 07-24-2021 End: 10-09-2021 Tobacco use and exposure Former smokeless tobacco user [facility] Start: 07-24-2021 End: 04-16-2023 Alcohol intake Current drinker of alcohol (finding) [facility] Start: 07-24-2021 History SDOH Alcohol Comment weekly-socially [facility] Start: 1960 Sex Assigned At Male [facility] Start: 07-14-2021 End: 10-09-2021 Exposure to SARS-CoV-2 (event) Not sure [facility] Tobacco smoking status Never [facility] Start: 10-15-2022 End: 04-16-2023 History of Social function [facility] Start: 07-18-2021 Gender identity Identifies as male gender (finding) [facility] Start: 07-18-2021 Sexual orientation Heterosexual (fin ding) [facility] Functional Status Date Assessment Result Facility 04-14-2023 Functional Status N/A [facility] 02-11-2022 Functional Status N/A [facility] 09-25-2021 Functional Status N/A [facility] Clinical Notes 06-07-2021 to 04-16-2023 Janelle Ch LPN - 04/16/2023 10:14 AM Marie Fish MD - 04/16/2023 10:02 AM Melyssa Ulrich APRN.CNP - 04/19/2022 12:39 PM ESTG Chato Romeo MD - 04/19/2022 10:03 AM EST Note Date & Type Note Facility 04-16-2023 Note HNO ID: [id number] Author: Marie ROMEO MD Service: ? Author Type: Physician Type: Progress Notes Filed: 04/16/2023 10:28 Note Text: Radiation Oncology - Follow Up Note PATIENT NAME: Braxton Stoddard PATIENT DIAGNOSIS: Prostate adenocarcinoma, initial PSA 4.6, biopsy [place] score 3 + 3 = 6 (grade [...] ASSESSMENT/PLAN: Prostate adenocarcinoma, initial PSA 4.6, biopsy [place] score 3 + 3 = 6 (grade [...] by: Marie Romeo MD cc: Barbara Porter [address] [place] [address] [facility] 04-16-2023 Nurse Note AUA= 7 documented in this encounter [facility] 04-16-2023 History of Present illness Narrative Radiation Oncology - Follow Up Note PATIENT NAME: Braxton Stoddard PATIENT DIAGNOSIS: Prostate adenocarcinoma, initial PSA 4.6, biopsy [place] score 3 + 3 = 6 (grade [...] ASSESSMENT/PLAN: Prostate adenocarcinoma, initial PSA 4.6, biopsy [place] score 3 + 3 = 6 (grade [...] by: Marie Romeo MD cc: Barbara Porter [address] [place] [address] documented in this encounter [facility] 04-14-2023 Hospital Discharge instructions Patient Education 04/14/2023 [...] treatment? Where to find more information [employer] [place] [employer]: www.cancer.org [place] [employer]: www.auanet.org Contact a health care [...] provider. Document Revised: 08/13/2021 Document Reviewed: 08/13/2021 [employer] Patient Education 2022 [employer]. Follow Up Care 08/12/2022 11:03:54 With:SONNY CODY, Tomasz Quigley URL Address: [facility] [address], [place] [address]- [phone] When: Unknown Comments:1 yr w/ PSA [facility] [place] 10-15-2022 Note HNO ID: [id number] Author: Marie Romeo MD Service: ? Author [...] by: Marie Romeo MD cc: Barbara Porter [address] [place] [address] [facility] 04-19-2022 Note HNO ID: [id number] Author: Pradip Ulrich APRN.CNP Service: ? Author Type: Nurse Practitioner Type: Progress Notes Filed: 04/19/2022 12:42 PM Note Text: Braxton Stoddard was seen and examined by Dr. Romeo today. He denies any problems with bowel movements. He is urinating well without any pain, burning or difficulty. He was given treatment survivorship care plan for prostate cancer. Pradip Ulrich APRN.CNP Discussed [facility] 04-19-2022 History of Present illness Narrative Braxton Stoddard was seen and examined by Dr. Romeo today. He denies any problems with bowel movements. He is urinating well without any pain, burning or difficulty. He was given treatment survivorship care plan for prostate cancer. Pradip Ulrich APRN.CNP Discussed documented in this encounter [facility] 04-19-2022 Note HNO ID: [id number] Author: Marie Romeo MD Service: ? Author Type: Physician Type: Progress Notes Filed: 04/25/2022 1:52 PM Note Text: Radiation Oncology - Follow Up Note PATIENT NAME: Braxton Stoddard PATIENT DIAGNOSIS: Prostate adenocarcinoma, initial PSA 4.6, biopsy [place] score 3 + 3 = 6 (grade [...] MD cc: Barbara Porter [address] [place] [address] [facility] 04-19-2022 History of Present illness Narrative Radiation Oncology - Follow Up Note PATIENT NAME: Braxton Stoddard PATIENT DIAGNOSIS: Prostate adenocarcinoma, initial PSA 4.6, biopsy [place] score 3 + 3 = 6 (grade [...] Marie Romeo MD cc: Barbara Porter [address] [place] [address] documented in this encounter [facility] 02-11-2022 Hospital Discharge instructions Patient Education 02/11/2022 [...] Follow these instructions at home: Medicines Take mkdj-bjx-yksapkc and prescription medicines only as told by [...] 02/14/2001 Document Revised: 01/30/2018 Document Reviewed: 03/05/2017 [employer] Patient Education 2020 [employer]. Follow Up Care 12/21/2021 12:49:39 With:SONNY CODY, Tomasz Quigley, URL Address: [facility] [address] [place] [address]- When: Unknown [facility] 10-09-2021 History of Present illness Narrative Radiation Oncology - Follow Up Note PATIENT NAME: Braxton Stoddard PATIENT DIAGNOSIS: Prostate adenocarcinoma, initial PSA 4.6, biopsy [place] score 3 + 3 = 6 (grade [...] by: Marie Romeo MD cc: Barbara Porter [address] [place] [address] documented in this encounter [facility] 08-09-2022 Nurse Note AUA= 24 documented in this encounter [facility] 09-26-2021 History of Present illness Narrative Patient: Braxton Stoddard Date:09/26/2021 [facility] Department of Radiation Oncology [facility] RADIATION ONCOLOGY POST SEED IMPLANT SIMULATION NOTE [...] M.D. 2:44 PM documented in this encounter [facility] 09-25-2021 Hospital Discharge instructions Patient Education 09/25/2021 [...] of fruits and vegetables. General instructions Take zwfh-pce-fabagav and prescription medicines only as told by [...] 03/22/2011 Document Revised: 01/30/2018 Document Reviewed: 03/21/2017 [employer] Patient Education 2020 [employer] Follow Up Care 08/30/2021 14:33:04 With:Ghulam Larkin MD, Rohan Rivera, URO Address: [facility] [address], [place] [address]- [phone] When:Within 4 Month(s) [facility] [place] 09-11-2021 Nurse Note AUA= 24 documented in this encounter [facility] 09-11-2021 History of Present illness Narrative Radiation [...] ASSESSMENT/PLAN: Prostate adenocarcinoma, initial PSA 4.6, biopsy [place] score 3 + 3 = 6 (grade [...] by: Marie Romeo MD cc: Barbara Porter [address] [place] [address] documented in this encounter [facility] 08-31-2021 History of Present illness Narrative Date: 08/28/2021 Facility: [facility] Procedure: prostate transperineal brachytherapy implant Sources: I-125 [...] seen, results documented. Sujey Romeo MD [facility] documented in this encounter [facility] 08-07-2021 History of Present illness Narrative UNIVERSAL [...] Marie Romeo MD documented in this encounter [facility] 08-07-2021 History of Present illness Narrative BRAXTON STODDARD [id number] 08/07/2021 [facility] Department of Radiation Oncology [facility] RADIATION ONCOLOGY SIMULATION NOTE DATE OF SIMULATION: 08/07/2021 MACHINE: [employer] Focus 500 Diagnosis: 185 (Prostate Gland) AREA:Prostate PATIENT POSITION: Supine CONTRAST: None PROTOCOL: None CONCURRENT THERAPY: None FIXATION DEVICE: UTS Stabilization device by [employer]. PROCEDURE: Patient was simulated in exaggerated dorsal lithotomy position. Serial images of the prostate were acquired using TRUS and reconstructed in 3D space. These images were imported into [employer] Prostate planning system where a plan was generated. ASSESSMENT/PLAN: Patient tolerated simulation procedure well. Electronically Signed Chato Romeo M.D. / 21:55 PM documented in this encounter [facility] 07-24-2021 History of Present illness Narrative Radiation [...] revealed: 46.9 cc gland, without hypoechogenic areas. [place] 6 left lateral apex involving 1 core [...] with Dr. Parmar s office. Signed by: Mraie Romeo MD cc: Barbara Porter [address] [place] [address] Rohan Parmar JR, MD [address] [facility] [address] documented in this encounter [facility] 07-24-2021 Nurse Note AUA= 16 documented in this encounter [facility] 07-10-2021 Hospital Discharge instructions Patient Education 07/10/2021 [...] who: Are older than age 65. Are -[place]ic. Are obese. Have a family history of [...] cells. Follow these instructions at home: Take jbdl-jdc-krtibqj and prescription medicines only as told by [...] 02/17/2006 Document Revised: 01/30/2018 Document Reviewed: 10/28/2016 [employer] Patient Education 2020 [employer]. Follow Up Care 06/26/2021 12:04:04 With:Ghulam Larkin MD, KAREN Marie Address: [facility] [address] , [place] [address]- When: Unknown Comments:will see us after seed implant procedure [facility] 06-26-2021 Hospital Discharge instructions Patient Education 06/26/2021 [...] who: Are older than age 65. Are -[place]ic. Are obese. Have a family history of [...] cells. Follow these instructions at home: Take gljw-hir-abeqebx and prescription medicines only as told by [...] 02/17/2006 Document Revised: 01/30/2018 Document Reviewed: 10/28/2016 [employer] Patient Education 2020 [employer]. Follow Up Care 06/08/2021 08:32:10 With:Ghulam Larkin MD, Rohan Rivera, URO Address: [facility] [address] [place] [address]- When:07/17/2021 [facility] [place] 06-07-2021 Hospital Discharge instructions Patient Education 06/07/2021 [...] for your post-operative appointment in 1-2 weeks [phone] or [phone] 06/07/2021 12:28:04 Post Op Patient Instructions - FT (CUSTOM) Follow Up Care 05/17/2021 15:25:20 With:Rohan Parmar Address: [facility] [address], [place] [address]- Business (1) When:2 to 4 weeks Comments:Review pathology report. [facility] Evaluation + Plan note No data available for this section [facility] Evaluation + Plan note Future Appointments Appointment Date:07/10/2021 10:15:00 AM Scheduled Provider:Rohan Parmar Jr., MD Location:[facility] Appointment Type:URO Office Visit [facility] Evaluation + Plan note Future Appointments Appointment Date:01/08/2022 08:00:00 AM Scheduled Provider:Rohan Parmar Jr., MD Location:[facility] Appointment Type:URO Office Visit [facility] Evaluation + Plan note Future Appointments Appointment Date:08/12/2022 10:15:00 AM Scheduled Provider:Tomasz ESCOBAR MD Location:[facility] Appointment Type:URO Office Visit Diagnostic Tests PendingPSA Total 02/11/22 [facility] Evaluation + Plan note Future Appointments Appointment Date:04/16/2024 09:30:00 AM Scheduled Provider:Tomasz ESCOBAR MD Location:[facility] Appointment Type:URO Office Visit Diagnostic Tests PendingPSA Total 04/14/23 [facility] Evaluation note Diagnosis Malignant neoplasm of prostate (HCC)- Primary Malignant neoplasm of prostate [facility] Diagnosis Malignant neoplasm of prostate (HCC)- [...] available for this section [facility] [place] Summary Purpose Family History No Family History [...] or prosecute any alcohol or drug abuse patient.[facility] Foundation[facility] the event this information is protected by the Federal Confidentiality of Alcohol and Drug Abuse Patient Records regulations: The Federal rules restrict any use of the information to criminally investigate or prosecute any alcohol or drug abuse patient.[facility] FoundationIn the event this information is protected by the Federal Confidentiality of Alcohol and Drug Abuse Patient Records regulations: The Federal rules restrict any use of the information to criminally investigate or prosecute any alcohol or drug abuse patient.[facility] FoundationIn the event this information is protected by the Federal Confidentiality of Alcohol and Drug Abuse Patient Records regulations: The Federal rules restrict any use of the information to criminally investigate or prosecute any alcohol or drug abuse patient.[facility] FoundationIn the event this information is protected by the Federal Confidentiality of Alcohol and Drug Abuse Patient Records regulations: The Federal rules restrict any use of the information to criminally investigate or prosecute any alcohol or drug abuse patient.[facility] FoundationIn the event this information is protected by the Federal Confidentiality of Alcohol and Drug Abuse Patient Records regulations: The Federal rules restrict any use of the information to criminally investigate or prosecute any alcohol or drug abuse patient.[facility] FoundationIn the event this information is protected by the Federal Confidentiality of Alcohol and Drug Abuse Patient Records regulations: The Federal rules restrict any use of the information to criminally investigate or prosecute any alcohol or drug abuse patient.[facility] FoundationIn the event this information is protected by the Federal Confidentiality of Alcohol and Drug Abuse Patient Records regulations: The Federal rules restrict any use of the information to criminally investigate or prosecute any alcohol or drug abuse patient.[facility] FoundationIn the event this information is protected by the Federal Confidentiality of Alcohol and Drug Abuse Patient Records regulations: The Federal rules restrict any use of the information to criminally investigate or prosecute any alcohol or drug abuse patient.[facility] FoundationIn the event this information is protected by the Federal Confidentiality of Alcohol and Drug Abuse Patient Records regulations: The Federal rules restrict any use of the information to criminally investigate or prosecute any alcohol or drug abuse patient.[facility] FoundationIn the event this information is protected by the Federal Confidentiality of Alcohol and Drug Abuse Patient Records regulations: The Federal rules restrict any use of the information to criminally investigate or prosecute any alcohol or drug abuse patient.[facility] FoundationIn the event this information is protected by the Federal Confidentiality of Alcohol and Drug Abuse Patient Records regulations: The Federal rules restrict any use of the information to criminally investigate or prosecute any alcohol or drug abuse patient.[facility] Reason for Visit (unrecogniz ed section and content) Reason Comments Consult Reason Comments Volume Study Reason Comments Prostate Cancer Reason Comments Prostate Cancer 6 month follow up Care Teams (unrecognized sec tion and content) Bingo Manager Relationship Specialty Start Date End Date Barbara Porter MD [address] [place] [address] PCP - General Family Practice 07/18/21 Rohan Parmar Jr. [address] [place] [address] Referring Urology 07/18/21 Bingo Manager Relationship Specialty Start Date End Date Barbara Porter MD [address] [place] [address] PCP - General Family Practice 07/18/21 Rohan Parmar Jr. [address] [place] [address] Referring Urology 07/18/21 Bingo Manager Relationship Specialty Start Date End Date Barbara Porter MD [address] [place] [address] PCP - General Family Practice 07/18/21 Rohan Parmar Jr. [address] [place] [address] Referring Urology 07/18/21 Bingo Manager Relationship Specialty Start Date End Date Barbara Porter MD [address] [place] [address] PCP - General Family Practice 07/18/21 Rohan Parmar Jr. [address] [place] [address] Referring Urology 07/18/21 Bingo Manager Relationship Specialty Start Date End Date Barbara Porter MD [address] [place] [address] PCP - General Family Practice 07/18/21 Rohan Parmar Jr. [address] [place] [address] Referring Urology 07/18/21 Bingo Manager Relationship Specialty Start Date End Date Barbara Porter MD [address] [place] [address] PCP - General Family Medicine 07/18/21 Rohan Parmar Jr. [address] [place] [id number] Referring Urology 07/18/21 Bingo Manager Relationship Specialty Start Date End Date Barbara Porter MD [address] [place] [address] PCP - General Family Medicine 07/18/21 Rohan Parmar Jr. [address] [place] [address] Referring Urology 07/18/21 Bingo Manager Relationship Specialty Start Date End Date Barbara Porter MD PCP - General Family Medicine 07/18/21 Rohan Parmar Jr. [address] [address] Referring Urology 07/18/21 (unrecognized sect ion and content) No Status Records FoundNo Status Records FoundNo Status Records Found INFORMATION SOURCE (unrecogn ized section and content) DATE CREATED AUTHOR 04/20/2022 [facility] DATE CREATED AUTHOR AUTHOR'S ORGANIZ ATION 04/18/2023 [facility] DATE CREATED AUTHOR AUTHOR'S ORGANIZ ATION 08/10/2023 [facility] FOR RECORDS PERTAINING TO PATIENTS WHO [...] BE BASED ON THE PRIMARY CLINICAL RECORDS. [employer] [facility]. provides no warranty or guarantee of the accuracy or completeness of information in this document.
== END 2023-09-01 12:28 | disposition home or self-care (01) ==
LOC: US 12:29
PROVIDERS: PCP Family Medicine; Visit Provider Family Medicine
DX: R10.11 Right upper quadrant pain (principal)
CPT/HCPCS: 76705

== ENCOUNTER 2023-09-23 11:44 | Outpatient (OUT) | payer BC, SELFPAY ==
--- OUTSIDE RECORDS SUMMARY | 2023-09-23 11:51 | XMS_ITS | CCD ---
Author Organization [facility] In[facility] Care Team Providers Care Customs Collector Name Role Phone BARBARA PORTER Primary Care Physician Barbara Porter MD Primary Care Provider [phone] Rohan Parmar Jr. Unavailable Barbara Porter MD Primary Care Provider Roahn Parmar Jr. Unavailable Barbara Porter MD Primary [...] PORTER, DR BARBARA Sheets Primary Care Unavailable BUFFALO, DR CATERINA [employer] Unavailable RASHMI, DR [...] Admitting Unavailable Steven Ayers Primary Care Physician [phone] Barbara Porter MD Primary Care Provider Marie ROMEO Referring Unavailable ENGMarie HALLMAN Attending Unavailable MOISES, BARBARA DONG Primary Care Unavailable ENGMarie HALLMAN Referring Unavailable Marie ROMEO Attending Unavailable MOISES, BARBARA DONG Primary Care Unavailable ENGMarie HALLMANIP Referring Unavailable PRADIP ULRICH Attending Unavailable BARBARA PORTER Primary Care Unavailable Marie ROMEO Attending Unavailable MOISES, BARBARA DNOG Primary Care Unavailable Marie ROMEO Referring Unavailable Tomasz ESCOBAR Attending Unavailable Tomasz ESCOBAR Attending Unavailable Tomasz ESCOBAR Attending Unavailable Allergies Allergy Classification Reported Allergen(s) Allergy Type Date of Onset Reaction(s) Facility (8 sources) Penicillin; Translations: [penicillin] Drug Allergy father gets really sick, in the [facility] Medications Current Medications Medication Drug Class(es) Dates Sig (Normalized) Sig (Original) 24 hr alfuzosin hydrochloride 10 mg extended release oral tablet (5 sources) alpha-Adrenergic Susana Start: 03-06-2022 take 1 tablet by mouth every other day alfuzosin 10 mg ER Tab 10 mg = 1 tab(s), Oral, Every other day, # 15 tab(s), Refills(s) 0, Pharmacy: [facility]/pharmacy #[id number], 182, cm, 04/14/23 12:26:00 EST, Height/Length Dosing, [...] Daily, # 30 tab(s), Refills(s) 6, Pharmacy: [facility]/pharmacy #[id number], 182, cm, 02/11/22 13:09:00 EST, Height/Length [...] day, # 60 tab(s), Refills(s) 1, [id number], cm, 09/25/21 9:56:00 [...] TAKE 1 TABLET BY MOUTH EVERY DAY, [id number], 182, cm, 08/12/22 10:27:00 EDT, Height/Length Dosing, [...] 08-08-2023 Auth for Release of Medical Records [id number] 0TIFF Normal [facility] CNOVon 04-16-2023 CNOV Office Visit (RADTSA ) RICHIBRAXTON MATTHEW ([id number]) 1960 M Date Time Provider Department 04/16/23 [...] ASSESSMENT/PLAN: Prostate adenocarcinoma, initial PSA 4.6, biopsy Alhambra score 3 + 3 = 6 (grade [...] by: Marie Romeo MD cc: Barbara Porter [address] [place] [address] Janelle Ch LPN 04/16/2023 10:28 AM Signed AUA= 7 Referring Provider: Marie ROMEO [[id number]] Allergies As of Date: 04/16/2023 (No Known Allergies) Date Reviewed: 04/16/2023 Reviewed by: Janelle Ch LPN - Fully Assessed Reason for Visit: Prostate Cancer [590] Primary Visit Diagnosis:Malignant neoplasm of prostate (HCC) [C61] Order(s):PSA (OUTSIDE) [6870040] Order #: [id number] PSA/PROSTSPECAG DIAG [SQPSA] Order #: [id number] FUTURE Prescriptions as of 04/16/2023 - alfuzosin [...] Status: Signed AUA= 7 Encounter Status:Closed by Maire ROMEO on 04/16/23 Normal [facility] Ambulatory Visit Summaryon 0 04-14-2023 Ambulatory [...] Urology [address], [place] [phone] Medications What How Much When Instructions Unchanged [...] is perf (more content not included)... Normal [facility] Patient Educationon 04-14-19 Patient Education Oncology Prostate [...] Where to find more information ? The [employer]: www.cancer.org ? [place] [employer]: www.auanet.org Contact a health care [...] adds flu (more content not included)... Normal [facility] Urology Office/Clinic Noteon 04-14-2023 Urology [...] 0.26 01/29/23 - 0.13 TRUS/bx 06/07/21 - Alhambra score 6 (3+3) in one core. S/p [...] [facility] [address], [place] [address]- [phone] Additional Instructions: 1 yr w/ PSA Patient [...] Protein Urine Dipstick: Negative (04/14/23 12:23:00) Specific [place]ass Urine Dipstick: 1.010 (04/14/23 12:23:00 (more content not included)... Normal [facility] Comment on above: Result Comment: Elec tronically Signed By: SONNY CODY, Tomasz Garcia.br\Date and Time Signed: 04/14/23 13:27 EST\.br\Electronically Co-Signed By: Rosalina Mosher\.radha\Date and Time Co-Signed: 04/14/23 13:22 EST Lab Reportson 01-29-2023 Lab Reports [id number] 0TIFF Normal [facility] CNOVon 10-15-2022 CNOV Office Visit (RADTSA ) BRAXTON STODDARD ([id number]) 1960 M Date Time Provider Department 10/15/22 [...] ASSESSMENT/PLAN: Prostate adenocarcinoma, initial PSA 4.6, biopsy Alhambra score 3 + 3 = 6 (grade group 1), clinical stage T1c, N0, M0, stage I [cT1a-c/T2a, N0, M0, PSA <10, GG 1] (AJCC 8th ed.), s/p TRUS Random biopsy. Patient overall doing well. PSA continues to decline. No significant posttreatment related problems. Recommend continued close observation with serial PSA. Signed by: Marie Romeo MD cc: Barbara Porter [facility] [place] [address] Referring Provider: Marie ROMEO [[id number]] Allergies As of Date: 10/15/2022 (No Known Allergies) Date Reviewed: 10/15/2022 Reviewed by: Alicia Reveles RN - Fully Assessed Reason for Visit: Prostate Cancer [590] Primary Visit Diagnosis:Malignant neoplasm of prostate (HCC) [C61] Order(s):PSA (OUTSIDE) [1196513] Order #: [id number] PSA/PROSTSPECAG DIAG [SQPSA] Order #: [id number] FUTURE Prescriptions as of 10/15/2022 - alfuzosin [...] for Encounter Date Provider Department Center 10/15/2022 [id number] Encounter Status:Closed by Marie ROMEO on 10/15/22 [facility] Ambulatory Visit Summaryon 0 08-12-2022 Ambulatory Visit Summary BRAXTON STODDARD :1960 Visit Date:08/12/2022 Ambulatory Visit Instructions Your Diagnosis Prostate cancer 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 Take kgjj-gjx-ldrurcc and prescription medicines only as told by [...] include cig (more content not included)... Normal [facility] Urology Office/Clinic Noteon 08-12-2022 Urology [...] Urology [address] , [place] [address]- Additional Instructions: 6 mos PSA Patient Education [...] Tobacco Use: (more content not included)... Normal [facility] Comment on above: Result Comment: Elec tronically Signed By: Tomasz ESCOBAR MD\.br\Date and Time Signed: 08/12/22 11:03 EDT\.br\Electronically Co-Signed By: Mary Ann Chilel.br\Date and Time Co-Signed: 08/12/22 11:01 EDT CNOVon 04-19-2022 CNOV Office Visit (RADTSA ) BRAXTON [id number]) 1960 M Date Time Provider Department 04/19/22 [...] ASSESSMENT/PLAN: Prostate adenocarcinoma, initial PSA 4.6, biopsy Alhambra score 3 + 3 = 6 (grade [...] by: Marie Romeo MD cc: Barbara Porter [address] [place] [address] Referring Provider: Marie ROMEO [[id number]] Allergies As of Date: 04/19/2022 (No Known Allergies) Date Reviewed: 04/19/2022 Reviewed by: Pradip Ulrich APRN.[employer]INEER - Fully Assessed Reason for Visit: Prostate Cancer [590] Cmt: 6 month follow up Primary Visit Diagnosis:Malignant neoplasm of prostate (HCC) [C61] Order(s):PSA (OUTSIDE) [[id number]] Order #: [id number] PSA/PROSTSPECAG DIAG [SQPSA] Order #: [id number] FUTURE Prescriptions as of 04/25/2022 - alfuzosin [...] for Encounter Date Provider Department Center 04/19/2022 [id number] ROMEO Encounter Status:Closed by Marie ROMEO on 04/25/22 [facility]SP) Office ([place]) BRAXTON STODDARD ([id number]) 1960 M Date Time Provider Department 04/19/22 10:30 AM PRADIP ULRICH During your visit today, we recorded the following information about you: Pradip Ulrich APRN.[employer]IV[employer] ENGINEER 04/19/2022 12:42 PM Signed Braxton Epstein Richi was seen and examined by Dr. Romeo today. He denies any problems with bowel movements. He is urinating well without any pain, burning or difficulty. He was given treatment survivorship care plan for prostate cancer. Pradip Ulrich APRN.[employer]IVIL ENGINEER Discussed Referring Provider: Marie ROMEO [[id number]] Allergies As of Date: 04/19/2022 (No Known Allergies) Date Reviewed: 04/19/2022 Reviewed by: Pradip Ulrich APRN.[employer]IV[employer] ENGINEER - Fully Assessed Visit Diagnosis:Prostate cancer (HCC) [...] Status:Closed by PRADIP ULRICH on 04/19/22 Normal [facility] XR HAND RT MIN 3Von 12-18-19 [...] CATERINA CHAVEZ Date: 2021-12-17 18:59 Normal [facility] XR PELVIS 1_2 VIEWSon 2021 XR PELVIS 1_2 VIEWS EXAMINATION: XR PELVIS 1_2 VIEWS HISTORY: History of prostate seed brachytherapy COMPARISON: No relevant comparison available. FINDINGS: 1 image. 18 seconds of fluoroscopy Single image demonstrates prostate seed implantation. Iodinated contrast with urinary bladder IMPRESSION: Image from prostate seed implantation Electronically authenticated by: CATERINA SANDHU Date: 2021-08-29 08:06 Normal [facility] Covid-19 PCR (CVDTBH)on 08-02 SARS-CoV-2 (COVID-19) RNA SILVA+probe Ql (Unsp spec) Not detected Normal NOT DETECTED [facility] Comment on above: Result Comment: This test is not yet approved or cleared by the [place] FDA. When there are no FDA-approved or cleared tests available, and other criteria are met, FDA can make tests available under an emergency access mechanism called an Emergency Use Authorization (EUA). The EUA for this test is supported by the Trap Setter of Health and Human Service's (HHS's) declaration [...] SARS-CoV-2. Performed By: #### C VDTBH #### [facility] [address] [place] [address] [address] Lisandra Cisneros PROF CHEM 8 (BAS METB)on Anion gap [Moles/Vol] 10.7 mmol/L Normal [facility] Comment on above: Performed By: #### B MP #### [facility] [address] [address] [address] Lisandra Cisneros Calcium [Mass/Vol] 9.0 mg/dL Normal 8.5-10.1 [facility] Comment on above: Performed By: #### B MP #### [facility] [address] [address] [address] Lisandra Cisneros Chloride [Moles/Vol] 98 mmol/L Normal 98-107 [facility] Comment on above: Performed By: #### B MP #### [facility] [address] [address] [address] Lisandra Cisneros CO2 [Moles/Vol] 27.7 mmol/L Normal 21.0-32.[address] [facility] Comment on above: Performed By: #### B MP #### [facility] [address] [place] [address] Dr. Lisandra Cisneros Creatinine [Mass/Vol] 0.87 mg/dL Normal 0.70-1.30 [facility] Comment on above: Performed By: #### B MP #### [facility] [address] [address] [address] Lisandra Cisneros EGFR-AF MONTSERRATIAN >60 Normal >=[address] [facility] Comment on above: Performed By: #### B MP #### [facility] [address] [address] [address] Lisandra Cisneros EGFR-NON AF MONTSERRATIAN >60 Normal >=60 [facility] Comment on above: Performed By: #### B MP #### [facility] [address] [address] [address] Lisandra Cisneros Glucose [Mass/Vol] 101 mg/dL Normal 74-106 [facility] Comment on above: Performed By: #### B MP #### [facility] [address] [address] [address] Lisandra Cisneros Potassium [Moles/Vol] 4.4 mmol/L Normal 3.5-5.1 [facility] Comment on above: Performed By: #### B MP #### [facility] [address] [address] [address] Lisandra Cisneros Sodium [Moles/Vol] 132 mmol/L Critically low 136-145 Th e [facility] Comment on above: Performed By: #### B MP #### [facility] [address] [place], [place] [address] Dr. Lisandra Cisneros Urea nitrogen [Mass/Vol] 13.0 mg/dL Normal 7.0-18.0 [facility] Comment on above: Performed By: #### B MP #### [facility] [address] [place], [place] [address] Dr. Lisandra Cisneros Urea nitrogen/Creatinin e [Mass ratio] 14.9 mg/mg Normal [facility] Comment on above: Performed By: #### B MP #### [facility] [address] [place], [place] [address] Dr. Lisandra Cisneros Vital Signs Date Time Vital Sign Value Performing Clinician Facility 04-16-2023 10:13-0500 Body temperature 97.5 [degF] INGRID Romeo MD Work Phone: [facility] 04-16-2023 10:13-0500 Body weight 111.7 kg INGRID Romeo MD Work Phone: [facility] 04-16-2023 10:13-0500 Diastolic blood pressure 86 mm[Hg] INGRID Romeo MD Work Phone: [facility] 04-16-2023 10:13-0500 Heart rate 52 /min INGRID Romeo MD Work Phone: [facility] 04-16-2023 10:13-0500 Respiratory rate 18 /min INGRID Romeo MD Work Phone: [facility] 04-16-2023 10:13-0500 SaO2% (BldA) [Mass fraction] 99 % INGRID Romeo MD Work Phone: [facility] 04-16-2023 10:13-0500 Systolic blood pressure 132 mm[Hg] INGRID Romeo MD Work Phone: [facility] 04-19-2022 10:12-0500 Body temperature 97.2 [degF] INGRID Romeo MD Work Phone: [facility] 04-19-2022 10:12-0500 Body weight 116.03 kg INGRID Romeo MD Work Phone: [facility] 04-19-2022 10:12-0500 Diastolic blood pressure 84 mm[Hg] INGRID Romeo MD Work Phone: [facility] 04-19-2022 10:12-0500 Heart rate 54 /min INGRID Romeo MD Work Phone: [facility] 04-19-2022 10:12-0500 Respiratory rate 16 /min INGRID Romeo MD Work Phone: [facility] 04-19-2022 10:12-0500 SaO2% (BldA) [Mass fraction] 100 % INGRID Romeo MD Work Phone: [facility] 04-19-2022 10:12-0500 Systolic blood pressure 172 mm[Hg] INGRID Romeo MD Work Phone: [facility] 02-11-2022 13:08-0500 Blood Pressure Location Tomasz ESCOBAR [facility] 02-11-2022 13:08-0500 Diastolic blood pressure 101 mm[Hg] Tomasz ESCOBAR [facility] 02-11-2022 13:08-0500 Heart rate 66 /min Tomasz ESCOBAR [facility] 02-11-2022 13:08-0500 Systolic blood pressure 137 mm[Hg] Tomasz ESCOBAR [facility] 10-09-2021 14:56-0400 Body temperature 98.01 [degF] INGRID Romeo MD Work Phone: [facility] 10-09-2021 14:56-0400 Body weight 111.13 kg INGRID Romeo MD Work Phone: [facility] 10-09-2021 14:56-0400 Diastolic blood pressure 94 mm[Hg] INGRID Romeo MD Work Phone: [facility] 10-09-2021 14:56-0400 Heart rate 56 /min INGRID Romeo MD Work Phone: [facility] 10-09-2021 14:56-0400 Respiratory rate 18 /min INGRID Romeo MD Work Phone: [facility] 10-09-2021 14:56-0400 SaO2% (BldA) [Mass fraction] 100 % INGRID Romeo MD Work Phone: [facility] 10-09-2021 14:56-0400 Systolic blood pressure 152 mm[Hg] INGRID Romeo MD Work Phone: [facility] 09-25-2021 09:54-0400 Blood Pressure Location Rohan Parmar Jr. [facility] 09-25-2021 09:54-0400 Diastolic blood pressure 99 mm[Hg] Rohan Parmar Jr. [facility] 09-25-2021 09:54-0400 Heart rate 52 /min Rohan Parmar Jr. [facility] 09-25-2021 09:54-0400 Respiratory rate 16 /min Rohan Parmar Jr. [facility] 09-25-2021 09:54-0400 Systolic blood pressure 178 mm[Hg] Rohan Parmar Jr. [facility] 09-11-2021 14:00-0400 Body temperature 96.91 [degF] INGRID Romeo MD Work Phone: [facility] 09-11-2021 14:00-0400 Body weight 109.77 kg INGRID Romeo MD Work Phone: [facility] 09-11-2021 14:00-0400 Diastolic blood pressure 88 mm[Hg] INGRID Romeo MD Work Phone: [facility] 09-11-2021 14:00-0400 Heart rate 59 /min INGRID Romeo MD Work Phone: [facility] 09-11-2021 14:00-0400 Respiratory rate 16 /min INGRID Romeo MD Work Phone: [facility] 09-11-2021 14:00-0400 SaO2% (BldA) [Mass fraction] 100 % INGRID Romeo MD Work Phone: [facility] 09-11-2021 14:00-0400 Systolic blood pressure 123 mm[Hg] INGRID Romeo MD Work Phone: [facility] 07-10-2021 11:07-0400 Diastolic blood pressure 92 mm[Hg] Rohan Parmar Jr. [facility] 07-10-2021 11:07-0400 Mean blood pressure 108 mm[Hg] Rohan Parmar Jr. [facility] 07-10-2021 11:07-0400 Systolic blood pressure 140 mm[Hg] Rohan Parmar Jr. [facility] 07-10-2021 10:57-0400 Blood Pressure Location Rohan Parmar Jr. [facility] 07-10-2021 10:57-0400 Diastolic blood pressure 96 mm[Hg] Rohan Parmar Jr. [facility] 07-10-2021 10:57-0400 Heart rate 78 /min Rohan Parmar Jr. [facility] 07-10-2021 10:57-0400 Respiratory rate 16 /min Rohan Parmar Jr. [facility] 07-10-2021 10:57-0400 Systolic blood pressure 142 mm[Hg] Rohan Parmar Jr. [facility] 06-26-2021 11:17-0400 Blood Pressure Location Rohan Parmar Jr. [facility] 06-26-2021 11:17-0400 Diastolic blood pressure 117 mm[Hg] Rohan Parmar Jr. [facility] 06-26-2021 11:17-0400 Heart rate 71 /min Rohan Parmar Jr. [facility] 06-26-2021 11:17-0400 Respiratory rate 16 /min Rohan Parmar Jr. [facility] 06-26-2021 11:17-0400 Systolic blood pressure 171 mm[Hg] Rohan Parmar Jr. [facility] 06-07-2021 13:50-0400 Blood Pressure Location Rohan Parmar Jr. [facility] 06-07-2021 13:50-0400 BP/Pulse Patient Position Rohan Parmar Jr. [facility] 06-07-2021 13:50-0400 Diastolic blood pressure 98 mm[Hg] Rohan Parmar Jr. [facility] 06-07-2021 13:50-0400 Heart rate 56 /min Rohan Parmar Jr. [facility] 06-07-2021 13:50-0400 Mean blood pressure 120 mm[Hg] Rohan Parmar Jr. [facility] 06-07-2021 13:50-0400 Respiratory rate 18 /min Rohan Parmar Jr. [facility] 06-07-2021 13:50-0400 SaO2% (BldA) [Mass fraction] 100 % Rohan Parmar Jr. [facility] 06-07-2021 13:50-0400 Systolic blood pressure 163 mm[Hg] Rohan Parmar Jr. [facility] 06-07-2021 12:15-0400 Blood Pressure Location Rohan Parmar Jr. [facility] 06-07-2021 12:15-0400 Diastolic blood pressure 68 mm[Hg] Rohan Parmar Jr. [facility] 06-07-2021 12:15-0400 Heart rate 51 /min Rohan Parmar Jr. [facility] 06-07-2021 12:15-0400 Respiratory rate 16 /min Rohan Parmar Jr. [facility] 06-07-2021 12:15-0400 SaO2% (BldA) [Mass fraction] 96 % Rohan Parmar Jr. [facility] 06-07-2021 12:15-0400 Systolic blood pressure 126 mm[Hg] Rohan Parmar Jr. [facility] 06-07-2021 12:10-0400 Body temperature 97.52 [degF] Rohan Parmar Jr. [facility] 06-07-2021 12:10-0400 Diastolic blood pressure 90 mm[Hg] Rohan Parmar Jr. [facility] 06-07-2021 12:10-0400 Heart rate 52 /min Rohan Parmar Jr. [facility] 06-07-2021 12:10-0400 Respiratory rate 10 /min Rohan Parmar Jr. [facility] 06-07-2021 12:10-0400 SaO2% (BldA) [Mass fraction] 94 % Rohan Parmar Jr. [facility] 06-07-2021 12:10-0400 SaO2% (BldA) [Mass fraction] 95 % Rohan Parmar Jr. [facility] 06-07-2021 12:10-0400 Systolic blood pressure 139 mm[Hg] Rohan Parmar Jr. [facility] 06-07-2021 11:55-0400 Respiratory rate 9 /min Rohan Parmar Jr. [facility] 06-07-2021 11:50-0400 Respiratory rate 10 /min Rohan Parmar Jr. [facility] 06-07-2021 11:41-0400 Body temperature 97.88 [degF] Rohan Parmar Jr. [facility] 06-07-2021 11:30-0400 Respiratory rate 17 /min Rohandale Parmar Jr. [facility] 06-07-2021 09:41-0400 Blood Pressure Location Rohan Parmar Jr. [facility] 06-07-2021 09:40-0400 Body temperature 98.6 [degF] Rohandale Parmar Jr. [facility] 06-07-2021 09:40-0400 Heart rate 72 /min Rohandale Parmar Jr. [facility] Encounters Encounter Date Encounter Type Care Provider Facility Start: 04-16-2024 ambulatory Tomasz Matthews ty:[facility] [place] Start: 04-16-2023 End: 04-16-2023 ambulatory Marie ROMEO Facility:[facility] Start: 04-16-2023 End: 04-16-2023 Patient encounter procedure Marie Romeo MD Work Phone: Radiation Oncology Comment on above: Malignant neoplasm o f prostate (HCC) (Primary Dx) Start: 04-14-2023 End: 04-14-2023 ambulatory Tomsaz ESCOBAR Facility:[facility] Start: 04-14-2023 End: 04-14-2023 Patient encounter procedure Tomasz ESCOBAR [facility] Start: 10-15-2022 End: 10-16-2022 ambulatory Marie ROMEO Facility:[facility] Start: 08-12-2022 End: 08-12-2022 ambulatory Tomasz ESCOBAR Facility:[facility] Start: 04-19-2022 End: 04-19-2022 ambulatory Marie ROMEO Facility:[facility] Start: 04-19-2022 End: 04-19-2022 ambulatory Pradip [...] procedure Tomasz Dann ESCOBAR [facility] Start: 01-16-2022 End: 01-17-2022 ambulatory [...] procedure Rohan Parmar Jr. [facility] Start: 09-11-2021 End: 09-11-2021 Patient [...] preprocedural laboratory examination DR ROHAN PARMAR JR [facility] Start: 08-23-2021 End: 08-24-[address] ROHAN PARMAR JR Facility:[facility] Start: 08-23-2021 End: 08-24-2021 Encounter for preprocedural laboratory examination DR ROHAN PARMAR JR Facility:[facility] Start: 08-17-2021 Encounter for preprocedural cardiovascular examination DR ROHAN PARMAR JR [facility] Start: 08-17-2021 Encounter for preprocedural laboratory examination DR ROHAN PARMAR JR [facility] Start: 08-16-2021 End: 08-17-[address] ROHAN [...] Start: 08-03-2021 [facility] Start: 08-02-2021 [facility] Start: 07-24-2021 End: 07-24-2021 Patient encounter procedure Marie Romeo MD Work Phone: Radiation Oncology Comment on above: Malignant neoplasm o f prostate (HCC) (Primary Dx) Start: 07-10-2021 End: 07-10-2021 Patient encounter procedure Rohan Parmar Jr. [facility] Start: 06-26-2021 End: 06-26-2021 Patient encounter procedure Rohan Parmar Jr. [facility] Start: 06-07-2021 End: 06-07-2021 Admission to same day surgery center Rohan Parmar Jr. [facility] Procedures Date Procedure Procedure Detail Performing Clinician Start: 01-29-2023 PSA screening [facility] Provi bob Start: 04-16-2022 End: 04-16-2022 PSA screening [facility] Provider Comment on above: Performed By: #### P SAD #### [facility] [address] [place] [address] Dr. Lisandra Cisneros Start: 10-05-[address] ROHAN PARMAR JR Comment on above: Performed By: #### P SAD #### [facility] [address] [place] [address] Dr. Lisandra Cisneros Start: 08-28-2021 Brachytherapy Tomasz W MAYKEL Start: 06-07-2021 Biopsy of prostate Uma Parmar Jr. Start: 03-03-2015 Dilation of esophagus D hien Parmar Jr. Appendectomy Rohan Islas Colonoscopy Rohan Islas Plan of Treatment Date Care Activity Detail Author Start: 12-18-2031 Urine microalbumin profile DTaP,Tdap,Td Vaccine (2 - Tdap) [facility] Start: 01-30-2028 Prostate specific antigen measurement Prostate Cancer Screening Discussion [facility] Start: 04-16-2027 PROSTATE CANCER SCREENING DISCUSSION PROSTATE CANCER SCREENING DISCUSSION [facility] Start: 10-05-2026 PROSTATE CANCER SCREENING DISCUSSION PROSTATE CANCER SCREENING DISCUSSION [facility] Start: 10-15-2023 End: 01-14-2024 Prostate specific Ag [Mass/volume] in Serum or Plasma PSA/PROSTSPECAG DIAG Lab Routine Malignant neoplasm of prostate (HCC) Expected: 10/15/2023, Expires: 01/14/2024 [facility] Work Phone: Comment on above: Expected: 10/15/2023 , Expires: 01/14/2024 Start: 03-03-2023 Depression Assessment Depression Ass essment [facility] Start: 11-01-2022 Influenza vaccination Influenza Vacc ine (#1) [facility] Start: 10-17-2022 End: 12-17-2022 Prostate specific Ag [Mass/volume] in Serum or Plasma PSA/PROSTSPECAG DIAG Lab Routine Malignant neoplasm of prostate (HCC) Expected: 10/17/2022, Expires: 12/17/2022 [facility] Work Phone: Comment on above: Expected: 10/17/2022 , Expires: 12/17/2022 Start: 04-11-2022 End: 06-11-2022 Prostate specific Ag [Mass/volume] in Serum or Plasma PSA/PROSTSPECAG DIAG Lab Routine Malignant neoplasm of prostate (HCC) Expected: 04/11/2022, Expires: 06/11/2022 [facility] Work Phone: Comment on above: Expected: 04/11/2022 , Expires: 06/11/2022 Start: 03-03-2022 DEPRESSION ASSESSMENT DEPRESSION ASS [facility] Start: 11-01-[address] [facility] Start: 10-12-2021 End: 12-12-2021 Prostate specific Ag [Mass/volume] in Serum or Plasma PSA/PROSTSPECAG DIAG Lab Routine Malignant neoplasm of prostate (HCC) Expected: 10/12/2021, Expires: 12/12/2021 [facility] Work Phone: Comment on above: Expected: 10/12/2021 , Expires: 12/12/2021 Start: 2021 RSV Vaccine (1 - 1-d ose 60+ series) RSV Vaccine (1 - 1-dose 60+ series) [facility] Start: 2016 PROSTATE CANCER SCREENING DISCUSSION PROSTATE CANCER SCREENING DISCUSSION [facility] Start: 2011 SHINGRIX VACCINE (1 of 2) SHINGRIX VACCINE (1 of 2) [facility] Start: 2006 COLOGUARD (FIT-DNA) COLOGUARD (FIT-D NA) [facility] Start: 2006 Colonoscopy COLONOSCOPY [facility] Start: 2006 COLORECTAL CANCER SCREENING COLORECTAL CANCER SCREENING [facility] Start: [address] COLONOGRAPHY [facility] Start: 2006 DIABETES SCREEN DIABETES SCREEN [facility] Start: 2006 Diabetes Screening Diabetes Screenin g [facility] Start: 2006 FECAL OCCULT BLOOD FECAL OCCULT BLOO D [facility] Start: 2006 Screening for malign ant neoplasm of colon [facility] Start: 2006 SIGMOIDOSCOPY SIGMOIDOSCOPY [facility] Start: 1996 Lipid panel Lipid Screening [facility] Start: 1996 LIPID SCREEN LIPID SCREEN [facility] Start: 1980 SHINGRIX VACCINE (1 of 2) SHINGRIX VACCINE (1 of 2) [facility] Start: 1980 Urine microalbumin profile DTAP,TDAP,TD (1 - Tdap) [facility] Start: 1979 HEPATITIS C SCREENING HEPATITIS C [facility] Start: 1979 Hepatitis C screening Hepatitis C [facility] Start: 1979 HIV SCREENING HIV SCREENING [facility] Start: 1979 HIV screening HIV Screening [facility] Start: 1973 Adult depression screening assessment DEPRESSION SCREENING [facility] Start: 1967 PNEUMOCOCCAL (1 - PCV) PNEUMOCOCCAL (1 - PCV) [facility] Start: 1966 COVID-19 VACCINE (#1) COVID-19 VACCI NE (#1) [facility] Start: 1961 COVID-19 VACCINE (#1) COVID-19 VACCI NE (#1) [facility] Payers Date Payer Category Payer Unknown [id number] 2021 Unknown MMO MMO [employer] [id number] 2021-Present [phone] [address] [place] [address] PPO [id number] 2021 Unknown [id number] 2019 Unknown [id number] 1961 Unknown [id number] 1961 Unknown [id number] 1961 Unknown [id number] 1961 Unknown [id number] 1961 Unknown [id number] 1961 Unknown [id number] 1961 Unknown [id number] 1961 Unknown [id number] 1961 Unknown [id number] 1961 Unknown [id number] 1961 Unknown [id number] Social History Date Type Detail Facility Tobacco smoking status Never smoker [facility] Start: 10-15-2022 End: 04-16-2023 Sex Assigned At Male [facility] Start: 06-26-2021 End: 10-09-2021 Tobacco smoking status Never smoked tobacco (finding) [facility] Start: 07-24-2021 End: 10-09-2021 Tobacco use and exposure Former smokeless tobacco user [facility] Start: 07-24-2021 End: 04-16-2023 Alcohol intake Current drinker of alcohol (finding) [facility] Start: 07-24-2021 History SDOH Alcohol Comment weekly-socially [facility] Start: 1960 Sex Assigned At Male [facility] Start: 07-14-2021 End: 10-09-2021 Exposure to SARS-CoV-2 (event) Not sure [facility] Tobacco smoking status Never [facility] Start: 10-15-2022 End: 04-16-2023 History of Social function [facility] Start: 07-18-2021 Gender identity Identifies as male gender (finding) [facility] Start: 07-18-2021 Sexual orientation Heterosexual (fin ding) [facility] Functional Status Date Assessment Result Facility 04-14-2023 Functional Status N/A [facility] 02-11-2022 Functional Status N/A [facility] 09-25-2021 Functional Status N/A [facility] Clinical Notes 06-07-2021 to 04-16-2023 Janelle Ch LPN - 04/16/2023 10:14 AM Marie Fish MD - 04/16/2023 10:02 AM Melyssa Ulrich APRN.CNP - 04/19/2022 12:39 PM ESTG Chato Romeo MD - 04/19/2022 10:03 AM EST Note Date & Type Note Facility 04-16-2023 Note HNO ID: [id number] Author: Marie ROMEO MD Service: ? Author Type: Physician Type: Progress Notes Filed: 04/16/2023 10:28 Note Text: Radiation Oncology - Follow Up Note PATIENT NAME: Braxton Stoddard PATIENT DIAGNOSIS: Prostate adenocarcinoma, initial PSA 4.6, biopsy Alhambra score 3 + 3 = 6 (grade [...] by: Marie Romeo MD cc: Barbara Porter [address] [place] [address] [facility] 04-16-2023 Nurse Note AUA= 7 documented in this encounter [facility] 04-16-2023 History of Present illness Narrative Radiation Oncology - Follow Up Note PATIENT NAME: Braxton Stoddard PATIENT DIAGNOSIS: Prostate adenocarcinoma, initial PSA 4.6, biopsy Alhambra score 3 + 3 = 6 (grade [...] by: Marie Romeo MD cc: Barbara Porter [address] [place] [address] documented in this encounter [facility] 04-14-2023 Hospital Discharge instructions Patient Education [...] treatment? Where to find more information The [employer]: www.cancer.org [place] [employer]: www.auanet.org Contact a health care [...] provider. Document Revised: 08/13/2021 Document Reviewed: 08/13/2021 [employer] Patient Education 2022 [employer]. Follow Up Care 08/12/2022 11:03:54 With:SONNY CODY, Tomasz Quigley URL Address: [facility] [address], [place] [address]- [phone] When: Unknown Comments:1 yr w/ PSA [facility] [place] 10-15-2022 Note HNO ID: [id number] Author: Marie Romeo MD Service: ? Author [...] by: Marie Romeo MD cc: Barbara Porter [address] [place] [address] [facility] 04-19-2022 Note HNO ID: [id number] Author: Pradip Ulrich APRN.CNP Service: ? Author Type: Nurse Practitioner Type: Progress Notes Filed: 04/19/2022 12:42 PM Note Text: Braxton Stoddard was seen and examined by Dr. Romeo today. He denies any problems with bowel movements. He is urinating well without any pain, burning or difficulty. He was given treatment survivorship care plan for prostate cancer. Pradip Ulrich APRN.CNP Discussed [facility] 04-19-2022 History of Present illness Narrative Braxton Stoddard was seen and examined by Dr. Romeo today. He denies any problems with bowel movements. He is urinating well without any pain, burning or difficulty. He was given treatment survivorship care plan for prostate cancer. Pradip Ulrich APRN.CNP Discussed documented in this encounter [facility] 04-19-2022 Note HNO ID: [id number] Author: Marie Romeo MD Service: ? Author Type: Physician Type: Progress Notes Filed: 04/25/2022 1:52 PM Note Text: Radiation Oncology - Follow Up Note PATIENT NAME: Braxton Stoddard PATIENT DIAGNOSIS: Prostate adenocarcinoma, initial PSA 4.6, biopsy Alhambra score 3 + 3 = 6 (grade [...] MD cc: Barbara Porter [address] [place] [address] [facility] 04-19-2022 History of Present illness Narrative Radiation Oncology - Follow Up Note PATIENT NAME: Braxton Stoddard PATIENT DIAGNOSIS: Prostate adenocarcinoma, initial PSA 4.6, biopsy Alhambra score 3 + 3 = 6 (grade [...] ASSESSMENT/PLAN: Prostate adenocarcinoma, initial PSA 4.6, biopsy Alhambra score 3 + 3 = 6 (grade [...] Marie Romeo MD cc: Barbara Porter [address] [place] [address] documented in this encounter [facility] 02-11-2022 Hospital Discharge instructions Patient Education [...] Follow these instructions at home: Medicines Take mtpv-klg-wlbbccv and prescription medicines only as told by [...] 02/14/2001 Document Revised: 01/30/2018 Document Reviewed: 03/05/2017 [employer] Patient Education 2020 [employer]. Follow Up Care 12/21/2021 12:49:39 With:SONNY CODY, Tomasz Quigley, URL Address: [facility] [address] [place] [address]- When: Unknown [facility] 10-09-2021 History of Present illness [...] ASSESSMENT/PLAN: Prostate adenocarcinoma, initial PSA 4.6, biopsy Alhambra score 3 + 3 = 6 (grade [...] by: Marie Romeo MD cc: Barbara Porter [address] [place] [id number] documented in this encounter [facility] 08-09-2022 Nurse Note AUA= 24 documented in this encounter [facility] 09-26-2021 History of Present illness Narrative Patient: Braxton Stoddard Date:09/26/2021 [facility] Department of Radiation Oncology [facility] RADIATION ONCOLOGY POST SEED IMPLANT SIMULATION [...] M.D. 2:44 PM documented in this encounter [facility] 09-25-2021 Hospital Discharge instructions Patient Education [...] of fruits and vegetables. General instructions Take tbby-ppf-edlpxdb and prescription medicines only as told by [...] 03/22/2011 Document Revised: 01/30/2018 Document Reviewed: 03/21/2017 [employer] Patient Education 2020 [employer] Follow Up Care 08/30/2021 14:33:04 With:Ghulam Larkin MD, Rohan Rivera, URO Address: [facility] [address], [place] [phone] When:Within 4 Month(s) [facility] [place] 09-11-2021 Nurse Note AUA= 24 documented in this encounter [facility] 09-11-2021 History of Present illness Narrative [...] ASSESSMENT/PLAN: Prostate adenocarcinoma, initial PSA 4.6, biopsy Alhambra score 3 + 3 = 6 (grade [...] by: Marie Romeo MD cc: Barbara Porter [address] [place] [id number] documented in this encounter [facility] 08-31-2021 History of Present illness Narrative Date: 08/28/2021 Facility: [facility] Procedure: prostate transperineal brachytherapy implant [...] activity seen, results documented. Sujey Romeo MD [facility] documented in this encounter [facility] 08-07-2021 History of Present illness Narrative [...] Marie Romeo MD documented in this encounter [facility] 08-07-2021 History of Present illness Narrative BRAXTON STODDARD [id number] 08/07/2021 [facility] Department of Radiation Oncology [facility] RADIATION ONCOLOGY SIMULATION NOTE DATE OF SIMULATION: 08/07/2021 MACHINE: [employer] Focus 500 Diagnosis: 185 (Prostate Gland) AREA:Prostate PATIENT POSITION: Supine CONTRAST: None PROTOCOL: None CONCURRENT THERAPY: None FIXATION DEVICE: UTS Stabilization device by [employer]. PROCEDURE: Patient was simulated in exaggerated dorsal lithotomy position. Serial images of the prostate were acquired using TRUS and reconstructed in 3D space. These images were imported into [employer] Prostate planning system where a plan was generated. ASSESSMENT/PLAN: Patient tolerated simulation procedure well. Electronically Signed Chato Romeo M.D. / 21:55 PM documented in this encounter [facility] 07-24-2021 History of Present illness Narrative [...] revealed: 46.9 cc gland, without hypoechogenic areas. Alhambra 6 left lateral apex involving 1 core [...] Marie Romeo MD cc: Barbara Porter [address] [place] [address] Rohan Parmar JR, MD [address] [facility] [address] documented in this encounter [facility] 07-24-2021 Nurse Note AUA= 16 documented in this encounter [facility] 07-10-2021 Hospital Discharge instructions Patient Education [...] who: Are older than age 65. Are -Portuguese. Are obese. Have a family history of [...] cells. Follow these instructions at home: Take depp-vuc-dmiiurk and prescription medicines only as told by [...] 02/17/2006 Document Revised: 01/30/2018 Document Reviewed: 10/28/2016 [employer] Patient Education 2020 [employer]. Follow Up Care 06/26/2021 12:04:04 With:Ghulam Larkin MD, KAREN Marie Address: [facility] [address] , [place] [address]- When: Unknown Comments:will see us after seed implant procedure [facility] 06-26-2021 Hospital Discharge instructions Patient [...] who: Are older than age 65. Are -Portuguese. Are obese. Have a family history of [...] cells. Follow these instructions at home: Take aeqk-szd-nizdspp and prescription medicines only as told by [...] 02/17/2006 Document Revised: 01/30/2018 Document Reviewed: 10/28/2016 [employer] Patient Education 2020 [employer]. Follow Up Care 06/08/2021 08:32:10 With:Ghulam Larkin MD, Rohan Rivera, URO Address: [facility] [address] [place] [address]- When:07/17/2021 [facility] [place] 06-07-2021 Hospital Discharge instructions [...] for your post-operative appointment in 1-2 weeks [phone] or [phone] 06/07/2021 12:28:04 Post Op Patient Instructions - FT (CUSTOM) Follow Up Care 05/17/2021 15:25:20 With:Rohan Parmar Address: [facility] [address], [place] [address]- Business (1) When:2 to 4 weeks Comments:Review pathology report. [facility] Evaluation + Plan note No data available for this section [facility] Evaluation + Plan note Future Appointments Appointment Date:07/10/2021 10:15:00 AM Scheduled Provider:Rohan Parmar Jr., MD Location:[facility] Appointment Type:URO Office Visit [facility] Evaluation + Plan note Future Appointments Appointment Date:01/08/2022 08:00:00 AM Scheduled Provider:Rohan Parmar Jr., MD Location:[facility] Appointment Type:URO Office Visit [facility] Evaluation + Plan note Future Appointments Appointment Date:08/12/2022 10:15:00 AM Scheduled Provider:Tomasz ESCOBAR MD Location:[facility] Appointment Type:URO Office Visit Diagnostic Tests PendingPSA Total 02/11/22 [facility] Evaluation + Plan note Future Appointments Appointment Date:04/16/2024 09:30:00 AM Scheduled Provider:Tomasz ESCOBAR MD Location:[facility] Appointment Type:URO Office Visit Diagnostic Tests PendingPSA Total 04/14/23 [facility] Evaluation note Diagnosis Malignant neoplasm of prostate (HCC)- Primary Malignant neoplasm of prostate [facility] Diagnosis Malignant [...] for this section [facility] [place] Summary Purpose Family History [...] or prosecute any alcohol or drug abuse patient.[facility] the event this information is protected by the Federal Confidentiality of Alcohol and Drug Abuse Patient Records regulations: The Federal rules restrict any use of the information to criminally investigate or prosecute any alcohol or drug abuse patient.[facility] Hospital[facility] the event this information is protected by the Federal Confidentiality of Alcohol and Drug Abuse Patient Records regulations: The Federal rules restrict any use of the information to criminally investigate or prosecute any alcohol or drug abuse patient.[facility] Hospital[facility] the event this information is protected by the Federal Confidentiality of Alcohol and Drug Abuse Patient Records regulations: The Federal rules restrict any use of the information to criminally investigate or prosecute any alcohol or drug abuse patient.[facility] Hospital[facility] the event this information is protected by the Federal Confidentiality of Alcohol and Drug Abuse Patient Records regulations: The Federal rules restrict any use of the information to criminally investigate or prosecute any alcohol or drug abuse patient.[facility] Hospital[facility] the event this information is protected by the Federal Confidentiality of Alcohol and Drug Abuse Patient Records regulations: The Federal rules restrict any use of the information to criminally investigate or prosecute any alcohol or drug abuse patient.[facility] Hospital[facility] the event this information is protected by the Federal Confidentiality of Alcohol and Drug Abuse Patient Records regulations: The Federal rules restrict any use of the information to criminally investigate or prosecute any alcohol or drug abuse patient.[facility] HospitalIn the event this information is protected by the Federal Confidentiality of Alcohol and Drug Abuse Patient Records regulations: The Federal rules restrict any use of the information to criminally investigate or prosecute any alcohol or drug abuse patient.[facility] HospitalIn the event this information is protected by the Federal Confidentiality of Alcohol and Drug Abuse Patient Records regulations: The Federal rules restrict any use of the information to criminally investigate or prosecute any alcohol or drug abuse patient.[facility] Hospital[facility] the event this information is protected by the Federal Confidentiality of Alcohol and Drug Abuse Patient Records regulations: The Federal rules restrict any use of the information to criminally investigate or prosecute any alcohol or drug abuse patient.[facility] HospitalIn the event this information is protected by the Federal Confidentiality of Alcohol and Drug Abuse Patient Records regulations: The Federal rules restrict any use of the information to criminally investigate or prosecute any alcohol or drug abuse patient.[facility] HospitalIn the event this information is protected by the Federal Confidentiality of Alcohol and Drug Abuse Patient Records regulations: The Federal rules restrict any use of the information to criminally investigate or prosecute any alcohol or drug abuse patient.[facility] Reason for Visit (unrecogniz ed section and content) Reason Comments Consult Reason Comments Volume Study Reason Comments Prostate Cancer Reason Comments Prostate Cancer 6 month follow up Care Teams (unrecognized sec tion and content) Customs Collector Relationship Specialty Start Date End Date Barbara Porter MD [address] [place] [address] PCP - General Family Practice 07/18/21 Rohan Parmar Jr. [address] [place] [address] Referring Urology 07/18/21 Customs Collector Relationship Specialty Start Date End Date Barbara Porter MD [address] [place] [address] PCP - General Family Practice 07/18/21 Rohan Parmar Jr. [address] [place] [address] Referring Urology 07/18/21 Customs Collector Relationship Specialty Start Date End Date Barbara Porter MD [address] [place] [address] PCP - General Family Practice 07/18/21 Rohan Parmar Jr. [address] [place] [address] Referring Urology 07/18/21 Customs Collector Relationship Specialty Start Date End Date Barbara Porter MD [address] [place] [address] PCP - General Family Practice 07/18/21 Rohan Parmar Jr. [address] [place] [address] Referring Urology 07/18/21 Customs Collector Relationship Specialty Start Date End Date Barbara Porter MD [address] [place] [address] PCP - General Family Practice 07/18/21 Rohan Parmar Jr. [address] [place] [address] Referring Urology 07/18/21 Customs Collector Relationship Specialty Start Date End Date Barbara Porter MD [address] [place] [address] PCP - General Family Medicine 07/18/21 Rohan Parmar Jr. [address] [place] [address] Referring Urology 07/18/21 Customs Collector Relationship Specialty Start Date End Date Barbara Porter MD [address] [place] [address] PCP - General Family Medicine 07/18/21 Rohan Parmar Jr. [address] [place] [address] Referring Urology 07/18/21 Customs Collector Relationship Specialty Start Date End Date Barbara Porter MD PCP - General Family Medicine 07/18/21 Rohan Parmar Jr. [address] [address] Referring Urology 07/18/21 (unrecognized sect ion and content) No Status Records FoundNo Status Records FoundNo Status Records Found INFORMATION SOURCE (unrecogn ized section and content) DATE CREATED AUTHOR 04/20/2022 [facility] DATE CREATED AUTHOR AUTHOR'S ORGANIZ ATION 04/18/2023 [facility] DATE CREATED AUTHOR AUTHOR'S ORGANIZ ATION 08/10/2023 [facility] FOR RECORDS PERTAINING TO PATIENTS [...] BE BASED ON THE PRIMARY CLINICAL RECORDS. [facility]. provides no warranty or guarantee of the accuracy or completeness of information in this document.
[2023-09-23 12:28] LABS: Anion Gap 11.1; BUN Creatinine Ratio 10.4; Calcium 9.2 mg/dL (8.5-10.1); Carbon Dioxide 30.5 mmol/L (21.0-32.0); Chloride 97 mmol/L (98-107); Estimated GFR (African America >60 (>=60); Estimated GFR (Non-African Ame >60 (>=60); Glucose 140 mg/dL (74-106); Potassium 3.6 mmol/L (3.5-5.1); Sodium 135 mmol/L (136-145)
== END 2023-09-23 11:45 | disposition home or self-care (01) ==
LOC: LAB 11:45
PROVIDERS: PCP Family Medicine; Visit Provider Internal Medicine Cardiovascular Disease
DX: I10 Essential (primary) hypertension (principal)
CPT/HCPCS: 36415; 80048

== ENCOUNTER 2023-10-07 11:27 | Outpatient (OUT) | payer BC, SELFPAY ==
[2023-10-07 12:44] LABS: Prostate Specific Antigen Dx <0.13 ng/mL (<=4.00)
== END 2023-10-07 11:28 | disposition home or self-care (01) ==
LOC: LAB 11:29
PROVIDERS: PCP Family Medicine; Visit Provider Radiology Radiation Oncology
DX: C61 Malignant neoplasm of prostate (principal)
CPT/HCPCS: 36415; 84153

== ENCOUNTER 2024-04-05 15:45 | Outpatient (OUT) | payer BC, SELFPAY ==
--- OUTSIDE RECORDS SUMMARY | 2024-04-05 16:05 | XMS_ITS | CCD ---
Author Organization [facility] Informat ion Partnership [facility] Care Team Providers Care Brick Or Block Maker Name Role Phone BARBARA PORTER Primary Care Physician German CODY, Barbara Limon Primary Care Provider Rohan Parmar Jr. Unavailable [...] PORTER, DR BARBARA Sheets Primary Care Unavailable AUSTIN, DR CATERINA Seals Consulting Unavailable RASHMI, DR MACKENZIE Francis Consulting Unavailable GHULAM GILL, DR ROHAN Rivera Consulting Unavailtoñito sheets AGUBOSIMSANTINO Consulting Unavailable PERLITA HOPSON Consulting Unavailable ANGELICA ARGUETA Consulting Unavailable RASHMI, DR MACKENZIE Francis Admitting Unavailable RASHMI, DR MACKENZIE Francis Attending Unavailable GERMAN, DR BARBARA Sheets Primary Care Unavailable RASHMI, DR MACKENZIE Francis Consulting Unavailable RASHMI, DR MACKENZIE Francis Admitting Unavailable RASHMI, DR MACKENZIE Francis Attending Unavailable GERMAN, DR BARBARA Sheets Consulting Unavailable GERMAN, DR BARBARA Sheets Primary Care Unavailable RASHMI, DR MACKENZIE Francis Consulting Unavailable GERMAN, DR BARBARA Sheets Primary Care Unavailable SREEKANTH, DR LING Admitting Unavailable SREEKANTH, DR LING Attending Unavailable GUTIERREZ MILLS Consulting Unavailable CATERINA CHAVEZ Consulting Unavailable GERMAN, DR BARBARA Sheets Attending Unavailable GERMAN, DR BARBARA Sheets Consulting Unavailable GERMAN, DR BARBARA Sheets Primary Care Unavailable PORTER, DR BARBARA Sheets Admitting Unavailable GERMAN, DR BARBARA Sheets Primary Care Unavailable PORTER, DR BARBARA Sheets Attending Unavailable PORTER, DR BARBARA Sheets Consulting Unavailable GERMAN, DR BARBARA Sheets Admitting Unavailable Steven Ayers Primary Care Physician [phone] Barbara Porter MD Primary Care Provider Tomasz ESCOBAR Attending Unavailable Tomasz ESCOBAR Attending Unavailable Tomasz ESCOBAR Attending Unavailable Barbara Porter MD Primary Care Provider [phone] Marie ROMEO Attending Unavailable BARBARA PORTER Primary Care Unavailable Marie ROMEO Referring Unavailable BARBARA PORTER Primary Care Unavailable Marie ROMEO Referring Unavailable Marie ROMEO Attending Unavailable Steven Ayers MD Primary Care Provider [phone] Geraldine Rodriguez DO Unavailable GERALDINE RODRIGUEZ Attending Unavailable Steven Ayers MD Primary Care Provider Allergies Allergy Classification Reported Allergen(s) Allergy Type Date of Onset Reaction(s) Facility (8 sources) Penicillin; Translations: [penicillin] Drug Allergy father gets really sick, in the [facility] (2 sources) Penicillin G Drug Allergy 4 [facility] Medications Current Medications Medication Drug Class(es) Dates Sig (Normalized) Sig (Original) 24 hr alfuzosin hydrochloride 10 mg extended release oral tablet (10 sources) alpha-Adrenergic Susana Start: 03-06-2022 take 1 tablet by mouth every other day alfuzosin 10 mg ER Tab 10 mg = 1 tab(s), Oral, Every other day, # 15 tab(s), Refills(s) 0, Pharmacy: [facility]/pharmacy #[id number], 182, cm, 04/14/23 12:26:00 EST, Height/Length Dosing, 108, kg, 04/14/23 12:26:00 EST, Weight Dosing Start Date: 04/14/23 Status: Ordered Start: 03-06-2022 take 1 tablet by sina th two times weekly alfuzosin SR (UROXATRAL) 10 mg 24 hr tablet Take 10 mg by mouth as directed. Take 1 tablet twice weekly 03/06/2022 Active Start: 03-06-2022 take 1 tablet by sina th once daily, then take 1 tablet by mouth every twenty-four hours alfuzosin SR (UROXATRAL) 10 mg 24 hr tablet Take 10 mg by mouth once daily. 0 03/06/2022 Active Start: 02-11-2022 take 1 tablet by sina th once daily alfuzosin 10 mg ER Tab 10 mg = 1 tab(s), Oral, Daily, # 30 tab(s), Refills(s) 6, Pharmacy: [facility]/pharmacy #[id number], 182, cm, 02/11/22 13:09:00 EST, Height/Length Dosing, 112.6, kg, 02/11/22 13:09:00 EST, Weight Dosing Start Date: 02/11/22 Status: Ordered Comment on above: Take 10 mg by mouth once daily. Take 10 mg by mouth every other day. aspirin 81 mg delayed release oral tablet (1 source) Platelet Aggregation Inhibitor, Nonsteroidal Anti-inflammatory Drug End: 09-09-19 take 1 tablet by mouth once daily aspirin 81 mg EC tablet Take 1 tablet (81 mg) by mouth once daily. 09/09/2023 Discontinued (Therapy completed) ciprofloxacin 500 mg oral tablet (6 sources) Quinolone Antimicrobial Start: 06-05-19 End: 06-11-19 take 1 tablet by mouth every twelve hours ciprofloxacin 500 mg Tab 500 mg = 1 tab(s), Oral, q12hr, Refills(s) 0, Infection or prophylaxis for antibiotics Start Date: 06/04/21 Status: Ordered indapamide 1.25 mg oral tablet (4 sources) Thiazide-like Diuretic Start: 10-03-19 take 1 tablet by mouth once daily indapamide (Lozol) 1.25 MG tablet Take 1.25 mg by mouth Daily 10/03/2023 Active Start: 09-09-2023 take 1 tablet by sina th once daily in the morning indapamide (Lozol) 1.25 mg tablet Indications: Essential hypertension, benign Take 1 tablet (1.25 mg) by mouth once daily in the morning. 30 tablet 2 09/09/2023 Active phenazopyridine hydrochloride 100 mg oral tablet (1 source) Start: 09-25-2021 Pyridium 100 m g Tab 100 mg = 1 tab(s), Oral, BID, take daily rather than twice a day, # 60 tab(s), Refills(s) 1, Pharmacy: [facility]/pharmacy #[id number], 182, cm, 09/25/21 9:56:00 EDT, Height/Length Dosing, 112.6, kg, 09/25/21 9:56:00 EDT, Weight Dosing Start Date: 09/25/21 Status: Ordered shake vitamins (5 sources) Start: 06-04-2021 shake vitamins shake vitamins, Oral, Daily, fiber store with vitamins liquid Start Date: 06/04/21 Status: Ordered Vitamin D3 2000 intl units (6 sources) Start: 06-04-2021 take 1 tablet by mouth once daily Vitamin D3 2000 intl units 1 tab, Oral, Daily, Prophylaxis Start Date: 06/04/21 Status: Ordered Completed/Discontinued Medications Medication Drug Class(es) Dates Sig (Normalized) Sig (Original) bisoprolol fumarate 2.5 mg / hydroCHLOROthiazide 6.25 mg oral tablet (20 sources) Thiazide Diuretic, beta-Adrenergic Susana Start: 12-26-2022 bisoprolol-hydro chlorothiazide 2.5 mg-6.25 mg Tab See Instructions, 90 tab(s), Refill(s) 1, TAKE 1 TABLET BY MOUTH EVERY DAY, [facility] STORE [id number], 182, cm, 08/12/22 10:27:00 EDT, Height/Length Dosing, 112, kg, 08/12/22 10:27:00 EDT, Weight Dosing Start Date: 12/26/22 Status: Ordered Start: 07-10-2021 bisoprolol-hyd rochlorothiazide 2.5 mg-6.25 mg Tab Refill(s) 0 Start Date: 07/10/21 Status: Ordered Start: 07-04-2021 End: 10-15-2023 take 1 tablet by mouth once daily bisoprolol-hydroCHLOROthiazide (Ziac) 2.5-6.25 MG tablet Take 1 tablet by mouth 1 (one) time each day. 10/03/2022 Active Comment on above: Take 1 tablet [...] as needed. tadalafil 20 mg oral tablet (6 sources) Phosphodiesterase 5 Inhibitor Start: 02-12-20 End: 10-15-19 take 1 tablet by mouth once daily Tadalafil (CIALIS) 20 mg tab(s) Take 20 mg by mouth once daily. 04/01/2022 10/15/2023 Discontinued (Discontinued by Patient) Comment on above: Take 20 mg by mouth once daily. Problems Active Problems Problem Classification Problem Date Documented Date Episodic/Chronic Cancer of prostate (20 sources) Malignant neoplasm of prostate; Translations: [Malignant tumor of prostate] Onset: 06-26-2021 Chronic Cancer of prostate (1 source) History of malignant neoplasm of prostate; Translations: [Personal history of malignant neoplasm of prostate] 10-15-2023 Episodic Conduction disorders (2 sources) Right bundle branch block; Translations: [Unspecified right bundle-branch block] Onset: 09-09-2023 09-09-2023 Chronic Disorders of lipid metabolism (6 sources) Hyperlipidemia 06-04-2021 Chronic Essential hypertension (12 sources) Hypertensive disorder; Translations: [Essential (primary) hypertension] Onset: 03-26-2021 04-24-2021 Chronic Genitourinary symptoms and ill-defined conditions (4 sources) Nocturia; Translations: [Nocturia] Onset: 09-06-2021 Episodic Hyperplasia of prostate (11 sources) Benign prostatic hypertrophy with outflow obstruction; Translations: [Benign prostatic hyperplasia with lower urinary tract symptoms] Onset: 06-26-2021 04-24-2021 Chronic Miscellaneous mental health disorders (2 sources) Primary insomnia; Translations: [Primary insomnia] 01-28-2024 Chronic Osteoarthritis (3 sources) Osteoarthritis of left foot; Translations: [Primary osteoarthritis, left ankle and foot] Onset: 12-03-2022 3 Chronic Other diseases of kidney and ureters (3 sources) Urinary tract obstruction; Translations: [Other obstructive and reflux uropathy] Onset: 06-07-2021 Episodic Other lower respiratory disease (2 sources) Snoring; Translations: [Snoring] 01-28-2024 Episodic Other male genital disorders (2 sources) Male erectile dysfunction, unspecified; Translations: [Erectile dysfunction] Onset: 02-11-2022 Chronic Other male genital disorders (1 source) Erectile dysfunction following radiation therapy; Translations: [Erectile dysfunction due to and following radiation therapy] Onset: 04-14-2023 Chronic Other male genital disorders (1 source) Erectile dysfunction following prostate brachytherapy 08-12-2022 Chronic Other nutritional; endocrine; and metabolic disorders (2 sources) Body mass index 30+ - obesity; Translations: [Body mass index (BMI) 33.0-33.9, adult] Onset: 09-09-2023 09-09-2023 Chronic Residual codes; unclassified (4 sources) Obstructive sleep apnea (adult) (pediatric); Translations: [OBSTRUCTIVE SLEEP APNEA] Onset: 02-12-2022 Chronic Residual codes; unclassified (2 sources) Obstructive sleep apnea syndrome; Translations: [Obstructive sleep apnea (adult) (pediatric)] 01-28-2024 Chronic Residual codes; unclassified (2 sources) Hypersomnia; Translations: [Hypersomnia, unspecified] 01-28-2024 Chronic Residual codes; unclassified (2 sources) Sleep apnea; Translations: [Sleep apnea, unspecified] Onset: 09-09-2023 09-09-2023 Chronic Unclassified (1 source) CONTACT W/AND (SUSP) EXPOS COVID-19; Translations: [CONTACT W/AND (SUSP) EXPOS COVID-19] Onset: 08-28-2021 Past or Other Problems Problem Classification Problem Date Documented Da te Episodic/Chronic Cardiac dysrhythmias (2 sources) Sinus bradycardia; Translations: [Bradycardia, unspecified] Onset: 09-09-2023 09-09-2023 Episodic E Codes: Cut/pierceb (1 source) Nail entering through skin, initial encounter; Translations: [NAIL ENTERING THROUGH SKIN INITIAL] Onset: 12-19-2021 Episodic Immunizations and screening for infectious disease (1 source) Encounter for immunization; Translations: [ENCOUNTER FOR IMMUNIZATION] Onset: 12-19-2021 Episodic Nonspecific chest pain (2 sources) Atypical chest pain; Translations: [Other chest pain] Onset: 09-09-2023 09-09-2023 Episodic Open wounds of extremities (4 sources) Laceration without foreign body of right thumb without damage to nail, initial encounter; Translations: [LAC NO FB RT THUMB NO DMG NAIL INIT] Onset: 12-17-2021 Episodic Other screening for suspected conditions (not mental disorders or infectious disease) (6 sources) Raised prostate specific antigen; Translations: [Elevated prostate specific antigen [PSA]] Onset: 09-06-2021 04-24-2021 Episodic Residual codes; unclassified (2 sources) Never smoked tobacco; Translations: [Other specified health status] Onset: 09-09-2023 09-09-2023 Episodic Results Test Name Value Interpretation Reference Range Facil ity CNOVon 10-15-2023 CNOV Office Visit (RADTSA ) BRAXTON STODDARD ([id number]) 1960 M Date Time Provider Department 10/15/23 10:45 AM Marie ROMEO During your visit today, we recorded the following information about you: Temperature Pulse Respiration Blood pressure 98.4 degrees 61/minute 18/minute 162/104 Weight 112.4 kg Marie Romeo MD 10/20/2023 1:08 PM Signed Radiation Oncology - Follow Up [...] mCi 19 needles INTERVAL HISTORY: Doing well. Denies any significant bladder or bowel dysfunction. Feeling better after getting off his beta-susana. 10/09/21:Urinary function improving still with frequency and urgency. Denies hematuria. No fever. No perirectal or perineal pain. PSA HISTORY: PSA. (no units) Date Value 10/07/2023 <0.13 01/29/2023 0.13 10/08/2022 0.15 04/16/2022 0.26 10/05/2021: 3.8 ALLERGIES No Known Allergies indapamide (LOZOL) 1.25 mg tablet Take 1.25 mg by mouth every morning. alfuzosin SR (UROXATRAL) 10 mg 24 hr tablet Take 10 mg by mouth as directed. Take 1 tablet twice weekly REVIEW OF SYSTEMS: D/N = 4/-2 Hematuria: none Dysuria: none Incontinence: none Urgency: min Catheter use: none Medications to aid urination: no - Total AUA Score: na Bowel movement frequency: 1/day Bowel movement quality: normal Blood per rectum: none PHYSICAL EXAM: BP 162/104 Pulse 61 Temp 36.9 ?C (98.4 ?F) Resp 18 Wt 112.4 kg (247 lb 12.8 oz) SpO2 99% BMI (P) 34.56 kg/m? KPS: 100 General Appearance: Alert and [...] Random biopsy. Patient overall doing well. PSA is now undetectable. No significant posttreatment related problems. Patient has continued close follow-up with urology including surveillance of PSA. I will see patient back in 1 year. Signed by: Marie Romeo MD cc: Barbara Porter [facility] [place] [address] Referring Provider: Marie ROMEO [[id number]] Allergies As of Date: 10/15/2023 (No Known Allergies) Date Reviewed: 04/16/2023 Reviewed by: Janelle Ch LPN - Fully Assessed Reason for Visit: Bladder Cancer [515] Primary Visit Diagnosis:History of prostate cancer [Z85.46] Order(s):PSA (OUTSIDE) [9441006] Order #: [id number] PROSTATE-SPECIFIC ANTIGEN DIAGNOSTIC [SQPSA] Order #: [id number] FUTURE Prescriptions as of 10/20/2023 - indapamide (LOZOL) 1.25 mg tablet Take 1.25 mg by mouth every morning. - alfuzosin SR (UROXATRAL) 10 mg 24 hr tablet Take 10 mg by mouth as directed. Take 1 tablet twice weekly Problem List As Of Date 10/15/2023 Noted Resolved Prostate cancer (HCC) [C61] 04/19/2022 Medications Discontinued During This Encounter Prescriptions - Tadalafil (CIALIS) 20 mg tab(s) (Discontinued) Take 20 mg by mouth once daily. - bisoprolol-hydroCHLORO thiazide (ZIAC) 2.5-6.25 mg per tablet (Discontinued) Take 1 tablet by mouth once daily. Disposition: Return in about 1 year (around 10/14/2024). Follow-up and Disposition History for Encounter Date Provider Department Center 10/15/2023 [id number] ROMEO [facility] Encounter Status:Closed by Marie ROMEO on 10/20/23 Normal [facility] PSA (OUTSIDE)on 10-07-2023 [facility] ic ECG 12 Leadon 09-09-2023 ECG revealed marked sinus bradycardia, left axis deviation, right bundle branch block [facility] Work Phone: Auth for Release of Medical Recordson 08-08-2023 [facility] for Release of Medical Records [id number] 0TIFF Normal [facility] CNOVon 04-16-2023 CNOV Office Visit (RADTSA ) RICHIBRAXTON MATTHEW ([id number]) 1960 M Date Time Provider Department 04/16/23 [...] by: Marie Romeo MD cc: Barbara Porter [address] [place] [address] Janelle Ch LPN 04/16/2023 10:28 AM Signed AUA= 7 Referring Provider: Marie ROMEO [[id number]] Allergies As of Date: 04/16/2023 (No Known Allergies) Date Reviewed: 04/16/2023 Reviewed by: Janelle Ch LPN - Fully Assessed Reason for Visit: Prostate Cancer [590] Primary Visit Diagnosis:Malignant neoplasm of prostate (HCC) [C61] Order(s):PSA (OUTSIDE) [[id number]] Order #: [id number] PSA/PROSTSPECAG DIAG [SQPSA] Order #: [id number] FUTURE Prescriptions as of 04/16/2023 - alfuzosin [...] Marie ROMEO on 04/16/23 Normal [facility] Ambulatory Visit Summaryon 0 04-14-2023 Ambulatory [...] [facility] [address], [place] [address] [phone] Medications What How Much When Instructions Unchanged [...] perf (more content not included)... Normal [facility] Patient Educationon 04-14-19 24 Patient Education Oncology [...] Where to find more information ? The [place] [employer]: www.cancer.org ? [place] [employer]: www.auanet.org Contact a health care [...] flu (more content not included)... Normal [facility] Urology Office/Clinic Noteon 04-14-2023 Urology [...] 0.26 01/29/23 - 0.13 TRUS/bx 06/07/21 - Chandler score 6 (3+3) in one core. S/p [...] Tomasz Quigley, URL [facility] [address] [place] [address]- [id number] Additional Instructions: 1 yr w/ PSA Patient [...] Protein Urine Dipstick: Negative (04/14/23 12:23:00) Specific [place] Urine Dipstick: 1.010 (04/14/23 12:23:00 (more content not included)... Normal [facility] Comment on above: Result Comment: Elec tronically Signed By: Tomasz ESCOBAR MD\.br\Date and Time Signed: 04/14/23 13:27 EST\.br\Electronically Co-Signed By: Rosalina Mosher.radha\Date and Time Co-Signed: 04/14/23 13:22 EST Lab Reportson 01-29-2023 Lab Reports [id number] 0TIFF [facility] Ambulatory Visit Summaryon 0 08-12-2022 Ambulatory Visit Summary BRAXTON STODDARD :1960 Visit Date:08/12/2022 Ambulatory Visit Instructions Your Diagnosis Prostate cancer BPH with urinary obstruction Erectile dysfunction after prostate brachytherapy Tests Performed Urnls Dip Stick Auto w/o Microscopy POC [id number] Your Care Team Attending Physician - Tomasz ESCOBAR MD Primary Care Physician - GERMAN CODY, BARBARA [...] CODY, Tomasz Quigley Where: [facility] Patient Educationon 08-13-19 Patient Education Urology Erectile [...] these instructions at home: Medicines ? Take ylzb-ivx-blrrcia and prescription medicines only as told by [...] cig (more content not included)... Normal [facility] Urology Office/Clinic Noteon 08-12-2022 Urology [...] 3.8 04/16/22 - 0.26 TRUS/bx 06/07/21 - Chandler score 6 (3+3) in one core. S/p [...] [facility] [address], [place] [address]- Additional Instructions: 6 mos PSA Patient Education [...] Use: (more content not included)... Normal [facility] Comment on above: Result Comment: Elec tronically Signed By: Tomasz ESCOBAR MD\.br\Date and Time Signed: 08/12/22 11:03 EDT\.br\Electronically Co-Signed By: Mary Ann Chilel\.br\Date and Time Co-Signed: 08/12/22 11:01 EDT XR HAND RT MIN 3Von 12-18-19 XR [...] by: CATERINA CHAVEZ Date: 2021-12-17 18:59 Normal [facility] XR PELVIS 1_2 VIEWSon 2021 XR PELVIS 1_2 VIEWS EXAMINATION: XR PELVIS 1_2 VIEWS HISTORY: History of prostate seed brachytherapy COMPARISON: No relevant comparison available. FINDINGS: 1 image. 18 seconds of fluoroscopy Single image demonstrates prostate seed implantation. Iodinated contrast with urinary bladder IMPRESSION: Image from prostate seed implantation Electronically authenticated by: CATERINA SANDHU Date: 2021-08-29 08:06 Normal [facility] Covid-19 PCR (CVDTBH)on 08-02 SARS-CoV-2 (COVID-19) RNA SILVA+probe Ql (Unsp spec) Not detected Normal NOT DETECTED [facility] Comment on above: Result Comment: This test is not yet approved or cleared by the [place] FDA. When there are no FDA-approved or cleared tests available, and other criteria are met, FDA can make tests available under an emergency access mechanism called an Emergency Use Authorization (EUA). The EUA for this test is supported by the [employer] Professor of Health and Human Service's (HHS's) declaration [...] consistent with SARS-CoV-2. Performed By: #### C [facility] #### [facility] [address] [place] [address] Dr. Lisandra Cisneros PROF CHEM 8 (BAS METB)on Anion gap [Moles/Vol] 10.7 mmol/L Normal [facility] Comment on above: Performed By: #### B MP #### [facility] [address] [place] [address] Dr. Lisandra Cisneros Calcium [Mass/Vol] 9.0 mg/dL Normal 8.5-10.1 [facility] Comment on above: Performed By: #### B MP #### [facility] [address] [place] [address] Dr. Lisandra Cisneros Chloride [Moles/Vol] 98 mmol/L Normal 98-107 [facility] Comment on above: Performed By: #### B MP #### [facility] [address] [place] [address] Dr. Lisandra Cisneros CO2 [Moles/Vol] 27.7 mmol/L Normal 21.0-32.0 [facility] Comment on above: Performed By: #### B MP #### [facility] [address] [place] [address] Dr. Lisandra Cisneros Creatinine [Mass/Vol] 0.87 mg/dL Normal 0.70-1.30 [facility] Comment on above: Performed By: #### B MP #### [facility] [address] [address] [address] Lisandra Cisneros EGFR-AF CANADIAN >60 Normal >=60 [facility] Comment on above: Performed By: #### B MP #### [facility] [id number] Lisandra Cisneros EGFR-NON AF CANADIAN >60 Normal >=60 [facility] Comment on above: Performed By: #### B MP #### [facility] [address] [address] [address] Lisandra Cisneros Glucose [Mass/Vol] 101 mg/dL Normal 74-106 [facility] Comment on above: Performed By: #### B MP #### [facility] [address] [place] [address] Dr. Lisandra Cisneros Potassium [Moles/Vol] 4.4 mmol/L Normal 3.5-5.1 [facility] Comment on above: Performed By: #### B MP #### [facility] [address] [place] [address] Dr. Lisandra Cisneros Sodium [Moles/Vol] 132 mmol/L Critically low 136-145 [facility] Comment on above: Performed By: #### B MP #### [facility] [address] [address] [address] Lisandra Cisneros Urea nitrogen [Mass/Vol] 13.0 mg/dL Normal 7.0-18.0 [facility] Comment on above: Performed By: #### B MP #### [facility] [address] [place] [address] Dr. Lisandra Cisneros Urea nitrogen/Creatini ne [Mass ratio] 14.9 mg/mg Normal [facility] Comment on above: Performed By: #### B MP #### [facility] [id number] Lisandra Cisneros Vital Signs Date Time Vital Sign Value Performing Clinician Facility 01-28-2024 13:36-0500 Body height 182.9 cm Geraldine Rodriguez DO Work Phone: [facility] 01-28-2024 13:36-0500 Body mass index (BMI) [Ratio] 34.58 kg/m2 Geraldine Rodriguez DO Work Phone: [facility] 01-28-2024 13:36-0500 Body weight 115.67 kg Geraldine Tyrese DO Work Phone: [facility] 01-28-2024 13:36-0500 Diastolic blood pressure 80 mm[Hg] Geraldine Tyrese DO Work Phone: [facility] 01-28-2024 13:36-0500 Heart rate 70 /min Geraldine Tyrese DO Work Phone: [facility] 01-28-2024 13:36-0500 SaO2% (BldA) [Mass fraction] 97 % Geraldine Tyrese DO Work Phone: [facility] 01-28-2024 13:36-0500 Systolic blood pressure 142 mm[Hg] Geraldine Tyrese DO Work Phone: [facility] 10-15-2023 10:30-0400 Body temperature 98.4 [degF] INGRID Romeo MD Work Phone: [facility] 10-15-2023 10:30-0400 Body weight 112.4 kg INGRID Romeo MD Work Phone: [facility] 10-15-2023 10:30-0400 Diastolic blood pressure 104 mm[Hg] INGRID Romeo MD Work Phone: [facility] Comment on above: repeat 151/103 10-15-2023 10:30-0400 Heart rate 61 /min INGRID Roemo MD Work Phone: [facility] 10-15-2023 10:30-0400 Respiratory rate 18 /min INGRID Romeo MD Work Phone: [facility] 10-15-2023 10:30-0400 SaO2% (BldA) [Mass fraction] 99 % INGRID Romeo MD Work Phone: [facility] 10-15-2023 10:30-0400 Systolic blood pressure 162 mm[Hg] INGRID Romeo MD Work Phone: [facility] Comment on above: repeat 151/103 09-09-2023 10:46-0400 Diastolic blood pressure 90 mm[Hg] Jocelyne Medina MD Work Phone: [facility] 09-09-2023 10:46-0400 Systolic blood pressure 138 mm[Hg] Jocelyne Medina MD Work Phone: [facility] 09-09-2023 10:45-0400 Body height 182.9 cm Jocelyne Medina MD Work Phone: [facility] 09-09-2023 10:45-0400 Body mass index (BMI) [Ratio] 33.91 kg/m2 Jocelyne Medina MD Work Phone: [facility] 09-09-2023 10:45-0400 Body weight 113.4 kg Jocelyne Medina MD Work Phone: [facility] 09-09-2023 10:45-0400 Heart rate 48 /min Jocelyne Medina MD Work Phone: [facility] 04-16-2023 10:13-0500 Body temperature 97.5 [degF] INGRID Romeo MD Work Phone: [facility] 04-16-2023 10:13-0500 Body weight 111.7 kg INGRID Romeo MD Work Phone: [facility] 04-16-2023 10:13-0500 Diastolic blood pressure 86 mm[Hg] INGRID Romeo MD Work Phone: [facility] 04-16-2023 10:13-0500 Heart rate 52 /min INGRID Romeo MD Work Phone: [facility] 04-16-2023 10:13-0500 Respiratory rate 18 /min INGRID Romeo MD Work Phone: [facility] 04-16-2023 10:13-0500 SaO2% (BldA) [Mass fraction] 99 % INGRID Romeo MD Work Phone: [facility] 04-16-2023 10:13-0500 Systolic blood pressure 132 mm[Hg] INGRID Romeo MD Work Phone: [facility] 04-19-2022 10:12-0500 Body temperature 97.2 [degF] INGRID Romeo MD Work Phone: [facility] 04-19-2022 10:12-0500 Body weight 116.03 kg INGRID Romeo MD Work Phone: [facility] 04-19-2022 10:12-0500 Diastolic blood pressure 84 mm[Hg] INGRID Romeo MD Work Phone: [facility] 04-19-2022 10:12-0500 Heart rate 54 /min INGRID Romeo MD Work Phone: [facility] 04-19-2022 10:12-0500 Respiratory rate 16 /min INGRID Romeo MD Work Phone: [facility] 04-19-2022 10:12-0500 SaO2% (BldA) [Mass fraction] 100 % INGRID Romeo MD Work Phone: [facility] 04-19-2022 10:12-0500 Systolic blood pressure 172 mm[Hg] INGRID Romeo MD Work Phone: [facility] 02-11-2022 13:08-0500 Blood Pressure Location Tomasz ESCOBAR [facility] 02-11-2022 13:08-0500 Diastolic blood pressure 101 mm[Hg] Tomasz ESCOBAR [facility] 02-11-2022 13:08-0500 Heart rate 66 /min Tomasz ESCOBAR [facility] 02-11-2022 13:08-0500 Systolic blood pressure 137 mm[Hg] Tomasz ESCOBAR [facility] 10-09-2021 14:56-0400 Body temperature 98.01 [degF] INGRID Romeo MD Work Phone: [facility] 10-09-2021 14:56-0400 Body weight 111.13 kg INGRID Romeo MD Work Phone: [facility] 10-09-2021 14:56-0400 Diastolic blood pressure 94 mm[Hg] INGRID Romeo MD Work Phone: [facility] 10-09-2021 14:56-0400 Heart rate 56 /min INGRID Romeo MD Work Phone: [facility] 10-09-2021 14:56-0400 Respiratory rate 18 /min INGRID Romeo MD Work Phone: [facility] 10-09-2021 14:56-0400 SaO2% (BldA) [Mass fraction] 100 % INGRID Romeo MD Work Phone: [facility] 10-09-2021 14:56-0400 Systolic blood pressure 152 mm[Hg] INGRID Romeo MD Work Phone: [facility] 09-25-2021 09:54-0400 Blood Pressure Location Rohan Parmar Jr. [facility] 09-25-2021 09:54-0400 Diastolic blood pressure 99 mm[Hg] Rohan Parmar Jr. [facility] 09-25-2021 09:54-0400 Heart rate 52 /min Rohan Parmar Jr. [facility] 09-25-2021 09:54-0400 Respiratory rate 16 /min Rohan Parmar Jr. [facility] 09-25-2021 09:54-0400 Systolic blood pressure 178 mm[Hg] Rohan Parmar Jr. [facility] 09-11-2021 14:00-0400 Body temperature 96.91 [degF] INGRID Romeo MD Work Phone: [facility] 09-11-2021 14:00-0400 Body weight 109.77 kg INGRID Romeo MD Work Phone: [facility] 09-11-2021 14:00-0400 Diastolic blood pressure 88 mm[Hg] INGRID Romeo MD Work Phone: [facility] 09-11-2021 14:00-0400 Heart rate 59 /min INGRID Romeo MD Work Phone: [facility] 09-11-2021 14:00-0400 Respiratory rate 16 /min INGRID Romeo MD Work Phone: [facility] 09-11-2021 14:00-0400 SaO2% (BldA) [Mass fraction] 100 % INGRID Romeo MD Work Phone: [facility] 09-11-2021 14:00-0400 Systolic blood pressure 123 mm[Hg] INGRID Romeo MD Work Phone: [facility] 07-10-2021 11:07-0400 Diastolic blood pressure 92 mm[Hg] Rohan Parmar Jr. [facility] 07-10-2021 11:07-0400 Mean blood pressure 108 mm[Hg] Rohan Parmar Jr. [facility] 07-10-2021 11:07-0400 Systolic blood pressure 140 mm[Hg] Rohan Parmar Jr. [facility] 07-10-2021 10:57-0400 Blood Pressure Location Rohan Parmar Jr. [facility] 07-10-2021 10:57-0400 Diastolic blood pressure 96 mm[Hg] Rohan Parmar Jr. [facility] 07-10-2021 10:57-0400 Heart rate 78 /min Rohan Parmar Jr. [facility] 07-10-2021 10:57-0400 Respiratory rate 16 /min Rohan Parmar Jr. [facility] 07-10-2021 10:57-0400 Systolic blood pressure 142 mm[Hg] Rohan Parmar Jr. [facility] 06-26-2021 11:17-0400 Blood Pressure Location Rohan Parmar Jr. [facility] 06-26-2021 11:17-0400 Diastolic blood pressure 117 mm[Hg] Rohan Parmar Jr. [facility] 06-26-2021 11:17-0400 Heart rate 71 /min Rohan Parmar Jr. [facility] 06-26-2021 11:17-0400 Respiratory rate 16 /min Rohan Parmar Jr. [facility] 06-26-2021 11:17-0400 Systolic blood pressure 171 mm[Hg] Rohan Parmar Jr. [facility] 06-07-2021 13:50-0400 Blood Pressure Location Rohan Parmar Jr. [facility] 06-07-2021 13:50-0400 BP/Pulse Patient Position Rohan Parmar Jr. [facility] 06-07-2021 13:50-0400 Diastolic blood pressure 98 mm[Hg] Rohan Parmar Jr. [facility] 06-07-2021 13:50-0400 Heart rate 56 /min Rohan Parmar Jr. [facility] 06-07-2021 13:50-0400 Mean blood pressure 120 mm[Hg] Rohan Parmar Jr. [facility] 06-07-2021 13:50-0400 Respiratory rate 18 /min Rohan Parmar Jr. [facility] 06-07-2021 13:50-0400 SaO2% (BldA) [Mass fraction] 100 % Rohan Parmar Jr. [facility] 06-07-2021 13:50-0400 Systolic blood pressure 163 mm[Hg] Rohan Parmar Jr. [facility] 06-07-2021 12:15-0400 Blood Pressure Location Rohan Parmar Jr. [facility] 06-07-2021 12:15-0400 Diastolic blood pressure 68 mm[Hg] Rohan Parmar Jr. [facility] 06-07-2021 12:15-0400 Heart rate 51 /min Rohan Parmar Jr. [facility] 06-07-2021 12:15-0400 Respiratory rate 16 /min Rohan Parmar Jr. [facility] 06-07-2021 12:15-0400 SaO2% (BldA) [Mass fraction] 96 % Rohan Parmar Jr. [facility] 06-07-2021 12:15-0400 Systolic blood pressure 126 mm[Hg] Rohan Parmar Jr. [facility] 06-07-2021 12:10-0400 Body temperature 97.52 [degF] Rohan Parmar Jr. [facility] 06-07-2021 12:10-0400 Diastolic blood pressure 90 mm[Hg] Rohan Parmar Jr. [facility] 06-07-2021 12:10-0400 Heart rate 52 /min Rohan Parmar Jr. [facility] 06-07-2021 12:10-0400 Respiratory rate 10 /min Rohan Parmar Jr. [facility] 06-07-2021 12:10-0400 SaO2% (BldA) [Mass fraction] 94 % Rohan Parmar Jr. [facility] 06-07-2021 12:10-0400 SaO2% (BldA) [Mass fraction] 95 % Rohan Parmar Jr. [facility] 06-07-2021 12:10-0400 Systolic blood pressure 139 mm[Hg] Rohan Parmar Jr. [facility] 06-07-2021 11:55-0400 Respiratory rate 9 /min Rohan Parmar Jr. [facility] 06-07-2021 11:50-0400 Respiratory rate 10 /min Rohan Parmar Jr. [facility] 06-07-2021 11:41-0400 Body temperature 97.88 [degF] Rohan Ghulam Larkin [facility] 06-07-2021 11:30-0400 Respiratory rate 17 /min Rohan Parmar Jr. [facility] 06-07-2021 09:41-0400 Blood Pressure Location Rohan Parmar Jr. [facility] 06-07-2021 09:40-0400 Body temperature 98.6 [degF] Rohan Ghulam Larkin [facility] 06-07-2021 09:40-0400 Heart rate 72 /min Rohan Parmar Jr. [facility] Encounters Encounter Date Encounter Type Care Provider Facility Start: 04-16-2024 ambulatory Tomasz Matthews ty:LENORE Pate Start: 01-28-2024 End: 01-28-2024 Bamboo flowsheet Geraldine Tyrese DO Work Phone: [facility] Start: 01-28-2024 End: 01-28-2024 Bamboo flowsheet Geraldine Tyrese DO Work Phone: [facility] Start: 01-28-2024 End: 01-28-2024 Office outpatient visit 25 minutes Geraldine Tyrese DO Work Phone: [facility] Comment on above: JENS (obstructive sle ep apnea) (Primary Dx); Hypersomnia; Snoring; Primary insomnia Start: 01-28-2024 End: 01-28-2024 ambulatory GERALDINE RODRIGUEZ Not Available Start: 10-15-2023 End: 10-15-2023 Patient encounter procedure G Chato Romeo MD Work Phone: Radiation Oncology Comment on above: History of prostate cancer (Primary Dx) Start: 10-15-2023 End: 10-15-2023 ambulatory BARBARA PORTER Facility:[facility] Start: 09-09-2023 End: 09-09-2023 Office consultation new/estab patient 60 min Jocelyne Medina MD Work Phone: [facility] Comment on above: Sinus bradycardia (P rimary Dx); Atypical chest pain; RBBB; Essential hypertension, benign; Sleep apnea, unspecified type; BMI 33.0-33.9,adult; Never smoked tobacco Start: 04-16-2023 End: 04-16-2023 ambulatory Marie ROMEO Facility:[facility] Start: 04-16-2023 End: 04-16-2023 Patient encounter procedure Marie Romeo MD Work Phone: Radiation Oncology Comment on above: Malignant neoplasm o f prostate (HCC) (Primary Dx) Start: 04-14-2023 End: 04-14-2023 ambulatory Tomasz ESCOBAR Facility:[facility] Start: 04-14-2023 End: 04-14-2023 Patient encounter procedure Tomasz ESCOBAR [facility] Start: 08-12-2022 End: 08-12-2022 ambulatory Tomasz ESCOBAR Facility:[facility] Start: 04-19-2022 End: 04-19-2022 ambulatory Gabriella Ulrich APRN.TEASEL SETTER Work Phone: Hematology/Oncology Comment on above: Prostate cancer (HCC ) Start: 04-19-2022 End: 04-19-2022 Patient encounter procedure Gabriella Ulrich YARD INSPECTOR.TEASEL SETTER Work Phone: [facility] Comment on above: Malignant neoplasm o f prostate (HCC) (Primary Dx) Start: 04-16-2022 End: 04-17-[address] MACKENZIE ROMEO Facility: Start: 02-12-2022 End: 02-13-[address] BARBARA PORTER Facility:[facility] Start: 02-11-2022 End: 02-11-2022 Patient encounter procedure Tomasz ESCOBAR [facility] Start: 01-16-2022 End: 01-17-2022 [...] Oncology Comment on above: Simulation Note Start: 09-26-2021 End: 09-26-2021 Subsequent hospital visit by physician Pet Ct Scan Brayden Mc Work Phone: Radiology [facility] Start: 09-25-2021 End: 09-25-2021 Patient encounter procedure Rohan Parmar Jr. [facility] Start: 09-11-2021 End: 09-11-2021 [...] preprocedural laboratory examination DR ROHAN PARMAR JR [facility] Start: 08-23-2021 End: 08-24-[address] ROHAN PARMAR JR Facility:[facility] Start: 08-23-2021 End: 08-24-2021 Encounter for preprocedural laboratory examination DR ROHAN PARMAR JR Facility:[facility] Start: 08-17-2021 Encounter for preprocedural cardiovascular examination DR ROHAN PARMAR JR [facility] Start: 08-17-2021 Encounter for preprocedural laboratory examination DR ROHAN PARMAR JR [facility] Start: 08-16-2021 End: 08-17-[address] ROHAN [...] Start: 08-03-2021 Patient encounter procedure [facility] Provider [facility] Start: 08-02-2021 Patient encounter procedure [facility] Provider [facility] Start: 07-24-2021 End: 07-24-2021 Patient encounter procedure Marie Romeo MD Work Phone: Radiation Oncology Comment on above: Malignant neoplasm o f prostate (HCC) (Primary Dx) Start: 07-10-2021 End: 07-10-2021 Patient encounter procedure Rohan Parmar Jr. [facility] Start: 06-26-2021 End: 06-26-2021 Patient encounter procedure Rohan Parmar Jr. [facility] Start: 06-07-2021 End: 06-07-2021 Admission to same day surgery center Rohan Parmar Jr. [facility] Procedures Date Procedure Procedure Detail Performing Clinician Start: 10-07-2023 PSA screening [facility] Provi bob Start: 09-09-2023 Ecg routine ecg w/le ast 12 lds w/i&r Jocelyne Medina MD Work Phone: Start: 01-29-2023 PSA screening [facility] Provi bob Start: 04-16-2022 End: 04-16-2022 PSA screening [facility] Provider Comment on above: Performed By: #### P SAD #### [facility] [address] [place] [address] Dr. Lisandra Cisneros Start: 10-05-[address] ROHAN PARMAR JR Comment on above: Performed By: #### P SAD #### [facility] [address] [place] [address] Dr. Lisandra Cisneros Start: 08-28-2021 Brachytherapy Tomasz BRAR Start: 06-07-2021 Biopsy of prostate Uma Parmar Jr. Start: 03-03-2015 Dilation of esophagus D hien Parmar Jr. Appendectomy Rohan Islas Colonoscopy Rohan Islas Plan of Treatment Date Care Activity Detail Author Start: 2036 RSV Vaccine (1 - 1-d ose 75+ series) RSV Vaccine (1 - 1-dose 75+ series) [facility] Start: 12-18-2031 DTaP/Tdap/Td Vaccine s (2 - Tdap) DTaP/Tdap/Td Vaccines (2 - Tdap) [facility] Start: 12-18-2031 Urine microalbumin profile DTaP,Tdap,Td Vaccine (2 - Tdap) [facility] Start: 10-06-2028 Prostate specific antigen measurement Prostate Cancer Screening Discussion [facility] Start: 01-30-2028 Prostate specific antigen measurement Prostate Cancer Screening Discussion [facility] Start: 04-16-2027 PROSTATE CANCER SCREENING DISCUSSION PROSTATE CANCER SCREENING DISCUSSION [facility] Start: 10-05-2026 PROSTATE CANCER SCREENING DISCUSSION PROSTATE CANCER SCREENING DISCUSSION [facility] Start: 10-14-2024 End: 01-13-2025 Prostate specific Ag [Mass/volume] in Serum or Plasma PROSTATE-SPECIFIC ANTIGEN DIAGNOSTIC Lab Routine History of prostate cancer Expected: 10/14/2024, Expires: 01/13/2025 [facility] Work Phone: Comment on above: Expected: 10/14/2024 , Expires: 01/13/2025 Start: 10-13-2024 End: 10-13-2024 Patient encounter procedure 10/13/2024 10:00 AM EDT Office Visit Radiation Oncology [address] [place] [address] Marie Romeo MD [address] [place] [address] 2 yr rv Radiation Oncology Comment on above: 2 yr rv Start: 01-28-2024 End: 01-28-2024 Patient encounter procedure 01/28/2024 1:45 PM EST Office Visit [facility] [address] [place] [address] Geraldine Rodriguez DO [address] [place], [place] [id number] Arrived [facility] Comment on above: Arrived Start: 11-02-2023 Covid-19 Vaccine ( season) Covid-19 Vaccine ( season) [facility] Start: 11-02-2023 Influenza vaccination Influenza Vacc ine (#1) [facility] Start: 10-15-2023 End: 01-14-2024 Prostate specific Ag [Mass/volume] in Serum or Plasma PSA/PROSTSPECAG DIAG Lab Routine Malignant neoplasm of prostate (HCC) Expected: 10/15/2023, Expires: 01/14/2024 [facility] Work Phone: Comment on above: Expected: 10/15/2023 , Expires: 01/14/2024 Start: 09-23-2023 End: 09-08-2024 Basic metabolic 2000 panel - Serum or Plasma Basic Metabolic Panel Lab Routine Essential hypertension, benign Expected: 09/23/2023 (Approximate), Expires: 09/08/2024 [facility] Service Area Work Phone: Comment on above: Expected: 09/23/2023 (Approximate), Expires: 09/08/2024 Start: 03-03-2023 Depression [facility] Start: 11-01-2022 Covid-19 Vaccine () Covid-19 Vaccine () [facility] Start: 11-01-2022 Influenza vaccination Influenza Vacc ine (#1) [facility] Start: 10-17-2022 End: 12-17-2022 Prostate specific Ag [Mass/volume] in Serum or Plasma PSA/PROSTSPECAG DIAG Lab Routine Malignant neoplasm of prostate (HCC) Expected: 10/17/2022, Expires: 12/17/2022 [facility] Work Phone: Comment on above: Expected: 10/17/2022 , Expires: 12/17/2022 Start: 04-11-2022 End: 06-11-2022 Prostate specific Ag [Mass/volume] in Serum or Plasma PSA/PROSTSPECAG DIAG Lab Routine Malignant neoplasm of prostate (HCC) Expected: 04/11/2022, Expires: 06/11/2022 [facility] Work Phone: Comment on above: Expected: 04/11/2022 , Expires: 06/11/2022 Start: 03-03-2022 [facility]MENT [facility] Start: 11-01-2021 Influenza vaccination [facility] Start: 10-12-2021 End: 12-12-2021 Prostate specific Ag [Mass/volume] in Serum or Plasma PSA/PROSTSPECAG DIAG Lab Routine Malignant neoplasm of prostate (HCC) Expected: 10/12/2021, Expires: 12/12/2021 [facility] Work Phone: Comment on above: Expected: 10/12/2021 , Expires: 12/12/2021 Start: 2021 RSV patient s and/or patients aged 60+ years (1 - 1-dose 60+ series) RSV patients and/or patients aged 60+ years (1 - 1-dose 60+ series) [facility] Start: 2021 RSV Vaccine (1 - 1-d ose 60+ series) RSV Vaccine (1 - 1-dose 60+ series) [facility] Start: 2016 PROSTATE CANCER SCREENING DISCUSSION PROSTATE CANCER SCREENING DISCUSSION [facility] Start: 2011 SHINGRIX VACCINE (1 of 2) SHINGRIX VACCINE (1 of 2) [facility] Start: 2011 Zoster Vaccines (1 of 2) Zoste r Vaccines (1 of 2) [facility] Start: 2006 COLOGUARD (FIT-DNA) COLOGUARD (FIT-D NA) [facility] Start: 2006 Colonoscopy COLONOSCOPY [facility] Start: 2006 COLORECTAL CANCER SCREENING COLORECTAL CANCER SCREENING [facility] Start: [address] COLONOGRAPHY [facility] Start: 2006 DIABETES SCREEN DIABETES SCREEN [facility] Start: 2006 Diabetes Screening Diabetes Screenin g [facility] Start: 2006 FECAL OCCULT BLOOD FECAL OCCULT BLOO D [facility] Start: 2006 Screening for malign ant neoplasm of colon [facility] Start: 2006 SIGMOIDOSCOPY SIGMOIDOSCOPY [facility] Start: 1996 Lipid panel Lipid Screening [facility] Start: 1996 LIPID SCREEN LIPID SCREEN [facility] Start: 1980 SHINGRIX VACCINE (1 of 2) SHINGRIX VACCINE (1 of 2) [facility] Start: 1980 Urine microalbumin profile DTAP,TDAP,TD (1 - Tdap) [facility] Start: 1979 Anxiety Screening Anxiety Screening [facility] Start: 1979 Depression Screening Depression Scre ening [facility] Start: 1979 HEPATITIS C SCREENING HEPATITIS C [facility] Start: 1979 Hepatitis C screening Hepatitis C [facility] Start: 1979 HIV SCREENING HIV SCREENING [facility] Start: 1979 HIV screening HIV Screening [facility] Start: 1973 Adult depression screening assessment DEPRESSION SCREENING [facility] Start: 1967 PNEUMOCOCCAL (1 - PCV) PNEUMOCOCCAL (1 - PCV) [facility] Start: 1966 COVID-19 VACCINE (#1) COVID-19 VACCI NE (#1) [facility] Start: 1962 MMR Vaccines (1 of 1 - Standard series) MMR Vaccines (1 of 1 - Standard series) [facility] Start: 1961 COVID-19 VACCINE (#1) COVID-19 VACCI NE (#1) [facility] Start: 1961 HIV screening HIV Screening [facility] Start: 1961 Lipid panel Lipid Panel [facility] Start: 1961 Screening for malign ant neoplasm of colon [facility] Start: 1961 Yearly Adult Physical Yearly Adult P hysical [facility] Immunizations Immunization Date Immunization Notes Care Provider Fa [facility] 12-17-2021 diphtheria, tetanus toxoids and pertussis vaccine Geraldine Rodriguez DO Work Phone: [facility] Payers Date Payer Category Payer [facility] BCBS [id number] 2022 Unknown [id number] 2021 Unknown MMO MMO [employer] [id number] 2021-Present [phone] [address] [place] [address] O [id number] 2021 Unknown [id number] 2019 Unknown [id number] 1961 Unknown [id number]. 593 1961 Unknown [id number]. 593 1961 Unknown [id number]. 593 1961 Unknown [id number] [id number]. 593 1961 Unknown [id number] [id number]. 593 1961 Unknown [id number] [id number]. 593 1961 Unknown [id number] [id number]. 593 1961 Unknown [id number]. 593 1961 Unknown [id number]. 727 1961 Unknown [id number] [id number]. 727 1961 Unknown [id number]. 727 1961 Unknown [id number]. 1259 Social History Date Type Detail Facility Tobacco smoking status Never smoker [facility] Start: 11-26-2022 End: 04-16-2023 Sex Assigned At Male [facility] Start: 06-26-2021 End: 09-09-2023 Tobacco smoking status Never smoked tobacco (finding) [facility] Start: 07-24-2021 End: 11-27-2022 Tobacco use and exposure Former smokeless tobacco user [facility] Start: 07-24-2021 End: 09-09-2023 Alcohol intake Current drinker of alcohol (finding) [facility] Start: 07-24-2021 History SDOH Alcohol Comment weekly-socially [facility] Start: 1960 Sex Assigned At Male [facility] Start: 07-14-2021 End: 09-09-2023 Exposure to SARS-CoV-2 (event) Not sure [facility] Tobacco smoking status Never [facility] Start: 04-16-2023 End: 09-09-2023 History of Social function [facility] Start: 07-18-2021 Gender identity Identifies as male gender (finding) [facility] Start: 07-18-2021 Sexual orientation Heterosexual (finding) [facility] End: 10-23-1992 History of tobacco use Snuff User [facility] Within the last year , have you been afraid of your partner or ex-partner? No [facility] Do you belong to any clubs or organizations such as judaism groups, unions, fraternal or athletic groups, or school groups? Yes [facility] Are you now , , , , never or living with a partner? [facility] How often to you hav e a drink containing alcohol? 4 or more times a week [facility] How many standard dr inks containing alcohol do you have on a typical day? 3 or 4 [facility] How often do you hav e 6 or more drinks on 1 occasion? Less than monthly [facility] Do you feel stress - tense, restless, nervous, or anxious, or unable to sleep at night because your mind is troubled all the time - these days [OSQ] Not at all [facility] (I/We) worried wheth er (my/our) food would run out before (I/we) got money to buy more. Never true [facility] Start: 11-27-2022 Alcohol Comment Caffeine intake : 1-2 cups per day [facility] Start: 09-09-2023 Tobacco use and exposure Smokeless tobacco non-user [facility] Work Phone: Start: 1960 Sex assigned at Not on file [facility] Work Phone: Functional Status Date Assessment Result Facility 04-14-2023 Functional Status N/A [facility] [facility] 02-11-2022 Functional Status N/A [facility] 09-25-2021 Functional Status N/A [facility] Clinical Notes 06-07-2021 to 01-28-2024 Geraldine Rodriguez DO - 01/28/2024 1:45 PM Marie Fish MD - 10/15/2023 10:45 AM Juana Medina MD - 09/09/2023 10:40 AM EDTPatient InstructionsAttachments Note Date & Type Note Facility 01-28-2024 History of Present illness Narrative Images from the original note were not included. Chief Complaint Patient presents with Sleep Apnea Subjective Edward is here for a follow up from the sleep clinic. He was last seen on 04/24/2022. He is doing well. He is using his PAP machine nightly unless he is traveling for only 1-2 nights. He can go without it for a night or two and not feel a difference. He feels rested in the mornings. He sleeps around 8-9 hours per night. He does need new supplies. His doing well No issues with the mask or the machine. No new medical issues. Past Medical History: Diagnosis Date Bursitis 2014 Cancer (CMS/HCC) 5-22 Hemorrhoids Hypertension ([facility]/HCC) 03/24 Kidney stones Osteoarthritis of left hip 2014 Schatzki's ring 07/2003 Past Surgical History: Procedure Laterality Date APPENDECTOMY 07/08/1984 EGD 06/28/2004 KIDNEY STONE SURGERY 08/1994 KNEE ARTHROPLASTY MN REMOVE NAIL BED/FINGER TIP Right PROSTATE SURGERY 08/2021 seed PROSTATE SURGERY 06/2021 biopsy Family History Problem Relation Name Age of Onset Depression Father Humble Stoddard Mental illness Father Humble Stoddard Hypertension Father Humble Stoddard Social History Tobacco Use Smoking status: Never Smokeless tobacco: Former Types: Snuff Quit date: 10/23/1992 Substance Use Topics Alcohol use: Yes Alcohol/week: 6.0 standard drinks of alcohol Types: 6 Cans of beer per week Comment: Caffeine intake : 1-2 cups per day Allergies: Penicillin g General: No fever or chills HEENT: No nasal congestion or runny nose Pulmonary: No shortness of breath or cough Cardiovascular: No chest pain or palpitations GI: No nausea or vomiting : No dysuria or hematuria Musculoskeletal: No new aches or pains or muscle weakness Infectious: no recurrent fevers or infections Dermatologic: No rashes or skin lesions Neurologic: No new headaches or dizziness Vitals: 01/28/24 1336 BP: 142/80 Pulse: 70 SpO2: 97% Body mass index is 34.58 kg/m . weight: 255 lb Neurologic exam: General: Normal body habitus, cooperative, pleasant Mental status: Awake, alert to person, place and time. Recent and remote memory are intact. Attention and concentration are normal. Fund of knowledge is appropriate for level of education. HEENT: NC/AT Cranial nerves: CN II: Visual tomlin full to confrontation. No loss of vision CN III, IV, : pupils equal round and reactive to light. Extraocular movements intact. No ptosis present. CN V: Facial sensation is normal. CN VII: Full and symmetric facial movement. CN VIII: Hearing is normal CN IX and X: Palate elevates symmetrically. CN XI: Shoulder shrug is normal bilaterally. CN XII: Tongue is midline without atrophy or fasciculation. Speech: Clear and fluent no aphasia or dysarthria Pronator drift: Negative bilateral upper extremity Coordination: Intact, no signs of dysmetria Good finger to nose and rapid alternating movements Sensory: Sensation is intact to light, temperature and vibratory touch throughout four extremities. Motor: LUE 5/5 RUE 5/5 LLE 5/5 RLE 5/5 Tone: Physiologic, no tremor, bradykinesia or rigidity DTR: Bilateral Biceps 2/4 Bilateral BR 2/4 Bilateral Patellar 2/4 No spasticity Gait: Normal to casual gait Romberg's Negative Review and summary of old records: Assessment/Plan Diagnoses and all orders for this visit: JENS (obstructive sleep apnea) Hypersomnia Snoring Primary insomnia 63-year-old male with a severe obstructive sleep apnea leading to daytime hypersomnolence and snoring. This is controlled with the use of the CPAP machine. He is beautifully compliant with it. He was having some sleep maintenance insomnia that too has improved with the use of the CPAP machine. Patient is compliant with it he is using it 97 percent of the time greater than 4 hours with an average nightly usage of 8 hours and 41 minutes and residual AHI of 2. Patient's [place] Sleepiness scale is a 3. Overall he is controlled and doing well. Plan Compliance data was reviewed and he is compliant [place] Sleepiness scale is 3 The patient was counseled on proper sleep hygiene and adequate hours of sleep. The patient was counseled on the risks of stroke, AR, and sudden with JENS, along with the need for compliance with the CPAP/BiPAP treatment. We will plan on following up in 1 year unless he has new issues and then he is to call us and let us know The diagnosis was all discussed with the patient. All questions were answered and they agreed with the treatment plan. Patient will call if there are any new issues or questions. Pt has been fully educated on their diagnosis, treatment options, follow up plan, and return instructions Return to clinic: 1 year documented in this encounter [facility] 10-15-2023 History of Present illness Narrative Radiation Oncology - Follow Up Note PATIENT NAME: Braxton Stoddard PATIENT DIAGNOSIS: Prostate adenocarcinoma, initial PSA 4.6, biopsy Chandler score 3 + 3 = 6 (grade group 1), clinical stage T1c, N0, M0, stage I [cT1a-c/T2a, N0, M0, PSA <10, GG 1] (AJCC 8th ed.), s/p TRUS Random biopsy. RADIATION SUMMARY:, Prostate brachytherapy 08/20/2021 145 Gy using I-125 sources. 76 sources, 29.64 mCi 19 needles INTERVAL HISTORY: Doing well. Denies any significant bladder or bowel dysfunction. Feeling better after getting off his beta-susana. 10/09/21:Urinary function improving still with frequency and urgency. Denies hematuria. No fever. No perirectal or perineal pain. PSA HISTORY: PSA. (no units) Date Value 10/07/2023 <0.13 01/29/2023 0.13 10/08/2022 0.15 04/16/2022 0.26 10/05/2021: 3.8 ALLERGIES No Known Allergies indapamide (LOZOL) 1.25 mg tablet Take 1.25 mg by mouth every morning. alfuzosin SR (UROXATRAL) 10 mg 24 hr tablet Take 10 mg by mouth as directed. Take 1 tablet twice weekly REVIEW OF SYSTEMS: D/N = 4/-2 Hematuria: none Dysuria: none Incontinence: none Urgency: min Catheter use: none Medications to aid urination: no - Total AUA Score: na Bowel movement frequency: 1/day Bowel movement quality: normal Blood per rectum: none PHYSICAL EXAM: BP 162/104 Pulse 61 Temp 36.9 C (98.4 F) Resp 18 Wt 112.4 kg (247 lb 12.8 oz) SpO2 99% BMI (P) 34.56 kg/m KPS: 100 General Appearance: Alert and oriented. No acute distress. No neck supraclavicular or axillary lymphadenopathy Rectal exam is deferred. ASSESSMENT/PLAN: Prostate adenocarcinoma, initial PSA 4.6, biopsy Chandler score 3 + 3 = 6 (grade group 1), clinical stage T1c, N0, M0, stage I [cT1a-c/T2a, N0, M0, PSA <10, GG 1] (AJCC 8th ed.), s/p TRUS Random biopsy. Patient overall doing well. PSA is now undetectable. No significant posttreatment related problems. Patient has continued close follow-up with urology including surveillance of PSA. I will see patient back in 1 year. Signed by: Marie Romeo MD cc: Barbara Porter [facility] [place] [address] documented in this encounter [facility] 10-15-2023 Note HNO ID: [id number] Author: Marie ROMEO MD Service: ? Author Type: Physician Type: Progress Notes Filed: 10/20/2023 13:08 Note Text: Radiation Oncology - Follow Up Note PATIENT NAME: Braxton Stoddard PATIENT DIAGNOSIS: Prostate adenocarcinoma, initial PSA 4.6, biopsy Chandler score 3 + 3 = 6 (grade group 1), clinical stage T1c, N0, M0, stage I [cT1a-c/T2a, N0, M0, PSA <10, GG 1] (AJCC 8th ed.), s/p TRUS Random biopsy. RADIATION SUMMARY:, Prostate brachytherapy 08/20/2021 145 Gy using I-125 sources. 76 sources, 29.64 mCi 19 needles INTERVAL HISTORY: Doing well. Denies any significant bladder or bowel dysfunction. Feeling better after getting off his beta-susana. 10/09/21:Urinary function improving still with frequency and urgency. Denies hematuria. No fever. No perirectal or perineal pain. PSA HISTORY: PSA. (no units) Date Value 10/07/2023 <0.13 01/29/2023 0.13 10/08/2022 0.15 04/16/2022 0.26 10/05/2021: 3.8 ALLERGIES No Known Allergies indapamide (LOZOL) 1.25 mg tablet Take 1.25 mg by mouth every morning. alfuzosin SR (UROXATRAL) 10 mg 24 hr tablet Take 10 mg by mouth as directed. Take 1 tablet twice weekly REVIEW OF SYSTEMS: D/N = 4/1-2 Hematuria: none Dysuria: none Incontinence: none Urgency: min Catheter use: none Medications to aid urination: no - Total AUA Score: na Bowel movement frequency: 1/day Bowel movement quality: normal Blood per rectum: none PHYSICAL EXAM: BP 162/104 Pulse 61 Temp 36.9 ?C (98.4 ?F) Resp 18 Wt 112.4 kg (247 lb 12.8 oz) SpO2 99% BMI (P) 34.56 kg/m? KPS: 100 General Appearance: Alert and [...] Random biopsy. Patient overall doing well. PSA is now undetectable. No significant posttreatment related problems. Patient has continued close follow-up with urology including surveillance of PSA. I will see patient back in 1 year. Signed by: Marie Romeo MD cc: Barbara Porter [address] [place] [address] [facility] 09-09-2023 History of Present illness Narrative Subjective Ed Richi is a 63 y.o. male Chief Complaint New Patient Visit HPI 63-year-old white male who was referred to me by Dr. Steven Ayers for assessment of chest pain and abnormal nuclear stress test. The patient has history of hypertension and sleep apnea, he is nondiabetic, non-smoker but has been utilizing CPAP machine on regular basis. He has active lifestyle and uses his elliptical up to 30 minutes at a time without any symptoms of chest pain. He does have a history of esophageal disease requiring dilatation on occasional basis. He has been experiencing symptoms of chest pain under the left breast area while he is sleeping at night that wakes him up and it resolved by itself. He described part of it as heartburn. He had a baseline right bundle branch block. He has no family history of early coronary artery disease. He had a treadmill Cardiolite stress test that was done recently at [facility], nuclear part was normal and the patient did very well on the treadmill up to 9 minutes with no symptoms but his EKG was read as abnormal with no details of how abnormal it was and given the fact that he has right bundle branch block with ST segment abnormalities at baseline these changes would likely be insignificant. He has no history of neurological disease or vascular disease. He has no orthopnea PND or lower extremity edema. He has no limitations on physical activities. Apart from class I obesity his physical examination was remarkable for bradycardia. He is on a beta-susana in the form of bisoprolol 2.5 mg combined with hydrochlorothiazide 6.25 mg. Assessment/recommendations: 1-symptoms of chest pain at rest during the nighttime with no symptoms during heavy physical activity such as running on an elliptical. He has minimal risk factor for coronary artery disease. His nuclear stress test in my interpretation was normal given the fact that he had normal perfusion study and normal ejection fraction with excellent performance on a treadmill. His electrocardiographic changes are to be considered false positive in view of the presence of right bundle branch block at baseline. Patient was reassured about the finding and the need for no further cardiac investigations. His chest pain is likely due to esophageal disease and not cardiac in etiology. He will not need cardiac follow-up. 2-essential hypertension, due to bradycardia patient was advised to switch from his current medication to indapamide 1.25 mg daily. 3-sleep apnea on CPAP machine 4-right bundle branch block which generally speaking is inconsequential 5-sinus bradycardia due to beta-susana therapy which will be discontinued Review of Systems Cardiovascular: Positive for chest pain, dyspnea on exertion and palpitations. Neurological: Positive for light-headedness. All other systems reviewed and are negative. Vitals: 09/09/23 1045 09/09/23 1046 BP: 138/82 138/90 BP Location: Left arm Right arm Patient Position: Sitting Sitting Pulse: (!) 48 Weight: 113 kg (250 lb) Height: 1.829 m (6') Objective Physical Exam Constitutional: Appearance: Normal appearance. HENT: Nose: Nose normal. Neck: Vascular: No carotid bruit. Cardiovascular: Rate and Rhythm: Normal rate. Pulses: Normal pulses. Heart sounds: Normal heart sounds. Pulmonary: Effort: Pulmonary effort is normal. Abdominal: General: Bowel sounds are normal. Palpations: Abdomen is soft. Musculoskeletal: General: Normal range of motion. Cervical back: Normal range of motion. Right lower leg: No edema. Left lower leg: No edema. Skin: General: Skin is warm and dry. Neurological: General: No focal deficit present. Mental Status: He is alert. Psychiatric: Mood and Affect: Mood normal. Behavior: Behavior normal. Thought Content: Thought content normal. Judgment: Judgment normal. Allergies Patient has no known allergies. Current Medications Current Outpatient Medications: alfuzosin (Uroxatral) 10 mg 24 hr tablet, Take 1 tablet (10 mg) by mouth once daily. Do not crush, chew, or split., Disp: , Rfl: aspirin 81 mg EC tablet, Take 1 tablet (81 mg) by mouth once daily., Disp: , Rfl: Assessment/Plan 1. Atypical chest pain 2. RBBB 3. Bradycardia 4. Essential hypertension, benign 5. Sleep apnea, unspecified type 6. BMI 33.0-33.9,adult 7. Never smoked tobacco Scribe Attestation By signing my name below, I, Jess Vallecillo LPN, Scribe attest that this documentation has been prepared under the direction and in the presence of Jocelyne Medina MD. Provider Attestation - Scribe documentation All medical record entries made by the Scribe were at my direction and personally dictated by me. I have reviewed the chart and agree that the record accurately reflects my personal performance of the history, physical exam, discussion and plan. documented in this encounter [facility] Work Phone: 09-09-2023 Instructions Jess De Jesus LPN - 09/09/2023 10:40 AM EDT Please bring all medicines, vitamins, and herbal supplements with you when you come to the office. Prescriptions will not be filled unless you are compliant with your follow up appointments or have a follow up appointment scheduled as per instruction of your physician. Refills should be requested at the time of your visit. BMI was above normal measurement. Current weight: 113 kg (250 lb) Weight change since last visit (-) denotes wt loss 250 lbs Weight loss needed to achieve BMI 25: 66.1 Lbs Weight loss needed to achieve BMI 30: 29.3 Lbs Provided instructions on dietary changes Provided instructions on exercise. Stop Ziac Start Lozol Lab work As needed follow up The following attachments cannot be sent through Care Everywhere.Body Mass Index, Adult ([place])documented in this encounter [facility] Work Phone: 04-16-2023 Nurse Note AUA= 7 documented in this encounter [facility] 04-16-2023 Note HNO ID: [id number] Author: Marie ROMEO MD Service: ? Author Type: Physician Type: Progress Notes Filed: 04/16/2023 10:28 Note Text: Radiation Oncology - Follow Up Note PATIENT NAME: Braxton Stoddard PATIENT DIAGNOSIS: Prostate adenocarcinoma, initial PSA 4.6, biopsy Chandler score 3 + 3 = 6 (grade [...] by: Marie Romeo MD cc: Barbara Porter [address] [place] [id number] [facility] 04-16-2023 History of Present illness Narrative [...] ASSESSMENT/PLAN: Prostate adenocarcinoma, initial PSA 4.6, biopsy Chandler score 3 + 3 = 6 (grade [...] by: Marie Romeo MD cc: Barbara Porter [address] [place] [address] documented in this encounter [facility] 04-14-2023 Hospital Discharge instructions Patient [...] treatment? Where to find more information [employer] [place] [employer]: www.cancer.org [employer] [employer]: www.auanet.org Contact a health care [...] provider. Document Revised: 08/13/2021 Document Reviewed: 08/13/2021 [employer] Patient Education 2022 [employer]. Follow Up Care 08/12/2022 11:03:54 With:Tomasz ESCOBAR MD, URL Address: [facility] [address] [place] [address]- [phone] When: Unknown Comments:1 yr w/ PSA [facility] [place] 04-19-2022 History of Present illness Narrative Braxton Stoddard was seen and examined by Dr. Romeo today. He denies any problems with bowel movements. He is urinating well without any pain, burning or difficulty. He was given treatment survivorship care plan for prostate cancer. Gabriella Ulrich APRN.TEASEL SETTER Discussed documented in this encounter [facility] 04-19-2022 History of Present illness Narrative Radiation Oncology - Follow Up Note PATIENT NAME: Braxton Stoddard PATIENT DIAGNOSIS: Prostate adenocarcinoma, initial PSA 4.6, biopsy Chandler score 3 + 3 = 6 (grade [...] by: Marie Romeo MD cc: Barbara Porter [address] [place] [address] documented in this encounter [facility] 02-11-2022 Hospital Discharge instructions Patient [...] Follow these instructions at home: Medicines Take rysr-gxm-ycrbiul and prescription medicines only as told by [...] 02/14/2001 Document Revised: 01/30/2018 Document Reviewed: 03/05/2017 [employer] Patient Education 2019 [employer]. Follow Up Care 12/21/2021 12:49:39 With:SONNY CODY, Tomasz Quigley, URL Address: [facility] [address] [place] [address]- When: Unknown [facility] [place] 10-09-2021 History of Present illness Narrative Radiation [...] by: Marie Romeo MD cc: Barbara Porter [address] [place] [id number] documented in this encounter [facility] 10-09-2021 Nurse Note AUA= 24 documented in this encounter [facility] 09-26-2021 History of Present illness Narrative Patient: Braxton Stoddard Date:09/26/2021 [facility] Department of Radiation Oncology [facility] RADIATION ONCOLOGY POST SEED IMPLANT SIMULATION NOTE [...] M.D. 2:44 PM documented in this encounter [facility] 09-25-2021 Hospital Discharge instructions Patient [...] of fruits and vegetables. General instructions Take hnrl-laj-xgkxqbr and prescription medicines only as told by [...] 03/22/2011 Document Revised: 01/30/2018 Document Reviewed: 03/21/2017 [employer] Patient Education 2020 [employer]. Follow Up Care 08/30/2021 14:33:04 With:Ghulam Larkin MD, Rohan Rivera URO Address: [facility] [address] [place] [address]- [phone] When:Within 4 Month(s) [facility] [place] 09-11-2021 Nurse Note AUA= 24 documented in this encounter [facility] 09-11-2021 History of Present illness Narrative Radiation Oncology - Follow Up Note PATIENT NAME: Braxton Stoddard PATIENT DIAGNOSIS: Prostate adenocarcinoma, initial PSA 4.6, biopsy Chandler score 3 + 3 = 6 (grade [...] once daily. REVIEW OF SYSTEMS: D/N = 5-08/03 Hematuria: none Dysuria: none Incontinence: none Urgency: [...] ASSESSMENT/PLAN: Prostate adenocarcinoma, initial PSA 4.6, biopsy Chandler score 3 + 3 = 6 (grade [...] by: Marie Romeo MD cc: Barbara Porter [facility] [place] [address] [place] [address] documented in this encounter [facility] 08-31-2021 History of Present illness Narrative Date: 08/28/2021 Facility: [facility] Procedure: prostate transperineal brachytherapy implant [...] activity seen, results documented. Sujey Romeo MD [facility] documented in this encounter [facility] 08-07-2021 History of Present illness [...] Marie Romeo MD documented in this encounter [facility] 08-07-2021 History of Present illness Narrative BRAXTON STODDARD [id number] 08/07/2021 [facility] Department of Radiation Oncology [facility] RADIATION ONCOLOGY SIMULATION NOTE DATE OF SIMULATION: 08/07/2021 MACHINE: [employer] 500 Diagnosis: 185 (Prostate Gland) AREA:Prostate PATIENT POSITION: Supine CONTRAST: None PROTOCOL: None CONCURRENT THERAPY: None FIXATION DEVICE: UTS Stabilization device by [employer]. PROCEDURE: Patient was simulated in exaggerated dorsal lithotomy position. Serial images of the prostate were acquired using TRUS and reconstructed in 3D space. These images were imported into [employer] Prostate planning system where a plan was generated. ASSESSMENT/PLAN: Patient tolerated simulation procedure well. Electronically Signed Chato Romeo M.D. / 21:55 PM documented in this encounter [facility] 07-24-2021 History of Present illness [...] revealed: 46.9 cc gland, without hypoechogenic areas. Chandler 6 left lateral apex involving 1 core [...] ASSESSMENT/PLAN: Prostate adenocarcinoma, initial PSA 4.6, biopsy Chandler score 3 + 3 = 6 (grade [...] Romeo MD cc: Barbara Porter [address] [place] [address] Rohan Parmar JR, MD [address] [facility] [place] [address] documented in this encounter [facility] 07-24-2021 Nurse Note AUA= 16 documented in this encounter [facility] 07-10-2021 Hospital Discharge instructions Patient [...] who: Are older than age 65. Are -Luxembourger. Are obese. Have a family history of [...] cells. Follow these instructions at home: Take lcsk-ouw-mudhkcc and prescription medicines only as told by [...] 02/17/2006 Document Revised: 01/30/2018 Document Reviewed: 10/28/2016 [employer] Patient Education 2020 [employer]. Follow Up Care 06/26/2021 12:04:04 With:Ghulam Larkin MD, Rohan Rivera URO Address: [facility] [address] , [place] [address]- When: Unknown Comments:will see us after seed implant procedure [facility] 06-26-2021 Hospital Discharge instructions [...] who: Are older than age 65. Are -Luxembourger. Are obese. Have a family history of [...] cells. Follow these instructions at home: Take yaxe-siw-yqtmazo and prescription medicines only as told by [...] 02/17/2006 Document Revised: 01/30/2018 Document Reviewed: 10/28/2016 [employer] Patient Education 2020 [employer]. Follow Up Care 06/08/2021 08:32:10 With:Ghulam Larkin MD, Rohan Rivera URO Address: [facility] [address] , [place] [address]- When:07/17/2021 [facility] 06-07-2021 Hospital Discharge instructions Patient Education 06/07/2021 [...] for your post-operative appointment in 1-2 weeks [phone] or [phone] 06/07/2021 12:28:04 Post Op Patient Instructions - FT (CUSTOM) Follow Up Care 05/17/2021 15:25:20 With:Rohan Parmar Address: [facility] [address], [place] [address]- Business (1) When:2 to 4 weeks Comments:Review pathology report. [facility] Evaluation + Plan note No data available for this section [facility] Evaluation + Plan note Future Appointments Appointment Date:07/10/2021 10:15:00 AM Scheduled Provider:Rohan Parmar Jr., MD Location:[facility] Appointment Type:URO Office Visit [facility] Evaluation + Plan note Future Appointments Appointment Date:01/08/2022 08:00:00 AM Scheduled Provider:Rohan Parmar Jr., MD Location:[facility] Appointment Type:URO Office Visit [facility] Evaluation + Plan note Future Appointments Appointment Date:08/12/2022 10:15:00 AM Scheduled Provider:Tomasz ESCOBAR MD Location:[facility] Appointment Type:URO Office Visit Diagnostic Tests PendingPSA Total 02/11/22 [facility] Evaluation + Plan note Future Appointments Appointment Date:04/16/2024 09:30:00 AM Scheduled Provider:Tomasz ESCOBAR MD Location:[facility] Appointment Type:URO Office Visit Diagnostic Tests PendingPSA Total 04/14/23 [facility] [facility] [place] Evaluation note Diagnosis Malignant neoplasm of prostate (HCC)- Primary Malignant neoplasm of prostate [facility] Diagnosis Malignant neoplasm of prostate (HCC)- Primary Malignant neoplasm of prostate [facility] Diagnosis Malignant neoplasm of prostate (HCC)- Primary Malignant neoplasm of prostate [facility] Diagnosis Prostate cancer (HCC) Malignant neoplasm of prostate [facility] Diagnosis Malignant neoplasm of prostate (HCC)- Primary Malignant neoplasm of prostate [facility] Diagnosis Malignant neoplasm of prostate (HCC)- Primary Malignant neoplasm of prostate [facility]* Diagnosis History of prostate cancer- Primary Personal history of malignant neoplasm of prostate documented in this encounter [facility] note* Diagnosis JENS (obstructive sleep apnea)- Primary Obstructive sleep apnea (adult) (pediatric) Hypersomnia Hypersomnia, unspecified Snoring Other dyspnea and respiratory abnormality Primary insomnia Persistent disorder of initiating or maintaining sleep [facility] Diagnosis Sinus bradycardia- Primary Other specified cardiac dysrhythmias Atypical chest pain Other chest pain RBBB Essential hypertension, benign Sleep apnea, unspecified type BMI 33.0-33.9,adult Never smoked tobacco documented in this encounter [facility] Work Phone: Progress note No data available for this section [facility] Summary Purpose Family History No Family History Records Found No data available for this section No Family History Records FoundNo Family History Records FoundNo Family History Records Found Advance Directives No Advanced Directives Records FoundNo Advanced Directives Records FoundNo Advanced Directives Records FoundNo Advanced Directives Records Found Reason for Referral Specialty Diagnoses / Procedures Referred By Wu t Referred To Contact Diagnoses Atypical chest pain RBBB Procedures ECG 12 Lead Jocelyne Medina MD [address] [facility] [address] [place] [address] Referral ID Status Reason Start Date Expiration Date V isits Requested Visits Authorized [id number] Authorized 09/09/2023 09/08/2024 1 1 Additional Source Comments Source Comments (unrecognize d section and content) In the event this informatio n is protected by the Federal Confidentiality of Alcohol and Drug Abuse Patient Records regulations: The Federal rules restrict any use of the information to criminally investigate or prosecute any alcohol or drug abuse patient.[facility] the event this information is protected by the Federal Confidentiality of Alcohol and Drug Abuse Patient Records regulations: The Federal rules restrict any use of the information to criminally investigate or prosecute any alcohol or drug abuse patient.[facility] the event this information is protected by the Federal Confidentiality of Alcohol and Drug Abuse Patient Records regulations: The Federal rules restrict any use of the information to criminally investigate or prosecute any alcohol or drug abuse patient.[facility] the event this information is protected by the Federal Confidentiality of Alcohol and Drug Abuse Patient Records regulations: The Federal rules restrict any use of the information to criminally investigate or prosecute any alcohol or drug abuse patient.[facility] the event this information is protected by the Federal Confidentiality of Alcohol and Drug Abuse Patient Records regulations: The Federal rules restrict any use of the information to criminally investigate or prosecute any alcohol or drug abuse patient.[facility] the event this information is protected by the Federal Confidentiality of Alcohol and Drug Abuse Patient Records regulations: The Federal rules restrict any use of the information to criminally investigate or prosecute any alcohol or drug abuse patient.[facility] the event this information is protected by the Federal Confidentiality of Alcohol and Drug Abuse Patient Records regulations: The Federal rules restrict any use of the information to criminally investigate or prosecute any alcohol or drug abuse patient.[facility] the event this information is protected by the Federal Confidentiality of Alcohol and Drug Abuse Patient Records regulations: The Federal rules restrict any use of the information to criminally investigate or prosecute any alcohol or drug abuse patient.[facility] the event this information is protected by the Federal Confidentiality of Alcohol and Drug Abuse Patient Records regulations: The Federal rules restrict any use of the information to criminally investigate or prosecute any alcohol or drug abuse patient.[facility] the event this information is protected by the Federal Confidentiality of Alcohol and Drug Abuse Patient Records regulations: The Federal rules restrict any use of the information to criminally investigate or prosecute any alcohol or drug abuse patient.[facility] the event this information is protected by the Federal Confidentiality of Alcohol and Drug Abuse Patient Records regulations: The Federal rules restrict any use of the information to criminally investigate or prosecute any alcohol or drug abuse patient.[facility] the event this information is protected by the Federal Confidentiality of Alcohol and Drug Abuse Patient Records regulations: The Federal rules restrict any use of the information to criminally investigate or prosecute any alcohol or drug abuse patient.[facility] the event this information is protected by the Federal Confidentiality of Alcohol and Drug Abuse Patient Records regulations: The Federal rules restrict any use of the information to criminally investigate or prosecute any alcohol or drug abuse patient.[facility] the event this information is protected by the Federal Confidentiality of Alcohol and Drug Abuse Patient Records regulations: The Federal rules restrict any use of the information to criminally investigate or prosecute any alcohol or drug abuse patient.[facility] Reason for Visit (unrecogniz ed section and content) Reason Comments Consult Reason Comments Volume Study Reason Comments Prostate Cancer Reason Comments Prostate Cancer 6 month follow up Reason Comments Bladder Cancer Specialty Diagnoses / Procedures Referred By Contac t Referred To Contact Radiology / RADIO PET CT SAND Diagnoses Post Seed CT Procedures CT POST OP SEED IMPLANT Marie Romeo MD [address] [place] [address] [address] [place] [address] Referral ID Status Reason Start Date Expiration Date V isits Requested Visits Authorized [id number] Closed Financial Clearance Not Required 09/24/2021 12/23/2021 1 1 Reason Comments Sleep Apnea Reason Comments New Patient Visit Dr. Ayers referral for abn stress test Specialty Diagnoses / Procedures Referred By Contac t Referred To Contact Diagnoses Atypical chest pain RBBB Procedures ECG 12 Lead Jocelyne Medina MD [address] [facility] [address] [place] [address] Referral ID Status Reason Start Date Expiration Date V isits Requested Visits Authorized [id number] Authorized 09/09/2023 09/08/2024 1 1 Care Teams (unrecognized sec tion and content) [employer] Relationship Specialty Start Date End Date Barbara Porter MD [address] [place] [address] PCP - General Family Practice 07/18/21 Rohan Parmar Jr. [address] [place] [address] Referring Urology 07/18/21 [employer]rick [employer] Block Maker Relationship Specialty Start Date End Date Barbara Porter MD [address] [place] [address] PCP - General Family Practice 07/18/21 Rohan Parmar Jr. [address] [place] [address] Referring Urology 07/18/21 Brick Or Block Maker Relationship Specialty Start Date End Date Barbara Porter MD [address] [place] [address] PCP - General Family Practice 07/18/21 Rohan Parmar Jr. [address] [place] [phone] Referring Urology 07/18/21 Brick Or Block Maker Relationship Specialty Start Date End Date Barbara Porter MD [address] [place] [address] PCP - General Family Practice 07/18/21 Rohan Parmar Jr. [address] [place] [address] Referring Urology 07/18/21 Brick Or Block Maker Relationship Specialty Start Date End Date Barbara Porter MD [address] [place] [address] PCP - General Family Practice 07/18/21 Rohan Parmar Jr. [address] [place] [address] Referring Urology 07/18/21 Brick Or Block Maker Relationship Specialty Start Date End Date Barbara Porter MD [address] [place] [address] PCP - General Family Medicine 07/18/21 Rohan Parmar Jr. [address] [place] [address] Referring Urology 07/18/21 Brick Or Block Maker Relationship Specialty Start Date End Date Barbara Porter MD [address] [place] [address] PCP - General Family Medicine 07/18/21 Rohan Parmar Jr. [address] [place] [address] Referring Urology 07/18/21 Brick Or Block Maker Relationship Specialty Start Date End Date Barbara Porter MD PCP - General Family Medicine 07/18/21 Rohan Parmar Jr. [address] [place] [address] Referring Urology 07/18/21 Brick Or Block Maker Relationship Specialty Start Date End Date Barbara Porter MD PCP - General Family Medicine 07/18/21 Rohan Parmar Jr. [address] [place] [address] Referring Urology 07/18/21 Brick Or Block Maker Relationship Specialty Start Date End Date Barbara Porter MD PCP - General Family Medicine 07/18/21 Rohan Parmar Jr. [address] [place] [address] Referring Urology 07/18/21 Brick Or Block Maker Relationship Specialty Start Date End Date Steven Ayers MD [address] [facility] [place] [phone] PCP - General Family Medicine 04/01/23 Geraldine Rodriguez DO [address] [place] [address] Referring Physician Neurology 01/28/24 Brick Or Block Maker Relationship Specialty Start Date End Date Steven Ayers MD [address] [facility] [place] [address] PCP - General Family Medicine 04/01/23 Geraldine Rodriguez DO [address] [place], [place] [phone] Referring Physician Neurology 01/28/24 Brick Or Block Maker Relationship Specialty Start Date End Date Steven Ayers MD [address] [facility] [place] [address] PCP - General Family Medicine 09/09/23 (unrecognized sect ion and content) No Status Records FoundNo Status Records FoundNo Status Records FoundNo Status Records Found INFORMATION SOURCE (unrecogn ized section and content) DATE CREATED AUTHOR 04/20/2022 Neftali Pate [facility] DATE CREATED AUTHOR AUTHOR'S ORGANIZ ATION 08/10/[address] [facility] DATE CREATED AUTHOR AUTHOR'S ORGANIZ ATION 10/21/2023 [facility] DATE CREATED AUTHOR AUTHOR'S ORGANIZ ATION 01/31/2024 [facility] EPIC FOR RECORDS PERTAINING TO PATIENTS WHO ARE [...] BE BASED ON THE PRIMARY CLINICAL RECORDS. [employer] provides no warranty or guarantee of the accuracy or completeness of information in this document.
[2024-04-05 16:49] LABS: Prostate Specific Antigen Dx 0.15 ng/mL (<=4.00)
== END 2024-04-05 15:46 | disposition home or self-care (01) ==
LOC: LAB 15:46
PROVIDERS: PCP Family Medicine; Visit Provider Urology
DX: C61 Malignant neoplasm of prostate (principal)
CPT/HCPCS: 36415; 84153

== ENCOUNTER 2024-09-30 14:04 | Outpatient (OUT) | payer BC, SELFPAY ==
[2024-09-30 15:17] LABS: Prostate Specific Antigen Dx <0.13 ng/mL (<=4.00)
== END 2024-09-30 14:05 | disposition home or self-care (01) ==
PROVIDERS: PCP Family Medicine; Visit Provider Radiology Radiation Oncology
DX: Z85.46 Personal history of malignant neoplasm of prostate (principal)
CPT/HCPCS: 36415; 84153